=== PATIENT | female | born 1990 | race Caucasian/White ===

== ENCOUNTER 2017-06-12 23:29 | Emergency (ER) | payer BC, OTHER ==
[2017-06-13 01:23] LABS: Absolute Lymphocytes (CBC) 3.1 K/uL (0.7-4.9); Absolute Monocytes 0.6 K/uL (0.1-1.3); Absolute Neutrophil 3.6 K/uL (1.8-8.0); Basophils % 0.3 % (0-1.3); Eosinophils % 2.2 % (0-4.4); Hematocrit 40.3 % (36.0-45.0); Lymphocytes % 41.3 % (15.3-44.8); MCH 30.9 pg (27.0-35.0); MCV 92.7 fL (80-100); MPV 9.2 fL (7.6-11.3); Monocytes % 8.3 % (3.3-12.3); RBC Red Blood Cell Count 4.35 M/uL (3.86-4.86)
[2017-06-13 01:55] LABS: BUN Blood Urea Nitrogen 11 mg/dL (6-20); Bicarbonate 26 mEq/L (21-31); Glucose Level 92 mg/dL (65-120); Potassium 3.6 mEq/L (3.6-5.0); Sodium Level 135 mEq/L (135-145)
--- NOTE | 2017-06-13 03:53 | EDPHYS ---
Physician Documentation [facility] Name: Talita Hernandez Age: 26 yrs Sex: Female : 1990 Arrival Date: 06/12/2017 Time: 23:33 Bed 15 Private MD: ED Physician Hilario Bailey HPI: 06/13 00:22 This 26 yrs old Female presents to ER via Ambulatory with complaints of cp Vaginal Bleeding, Abdominal Cramping, 7 WEEKS . 00:22 The patient presents with vaginal bleeding that is spotting, right lower abdomen pain. cp Onset: The symptoms/episode began/occurred 3 day(s) ago. Severity of symptoms: in the emergency department the symptoms are unchanged. 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 - Social history:: Smoking status: Patient/guardian denies using tobacco, Patient/guardian denies using alcohol, street drugs. ROS: 06/13 00:25 Constitutional: Negative for body aches, chills, fever, poor PO intake. cp 00:25 Eyes: Negative for injury, pain, redness, and discharge. cp 00:25 ENT: Negative for drainage from ear(s), ear pain, sore throat, difficulty swallowing, difficulty handling secretions. 00:25 Cardiovascular: Negative for chest pain, edema, palpitations. 00:25 Respiratory: Negative for cough, shortness of breath, wheezing. 00:25 Abdomen/GI: Positive for abdominal pain, of the right lower quadrant, Negative for vomiting, diarrhea, constipation, black/tarry stool, rectal bleeding. 00:25 : Negative for urinary symptoms. 00:25 Skin: Negative for cellulitis, rash. 00:25 Neuro: Negative for altered mental status, dizziness, headache, syncope, near syncope, weakness. 00:25 All other systems are negative. Exam: 00:30 Constitutional: The patient appears in no acute distress, alert, awake, non-toxic, well cp developed, well nourished. 00:30 Head/Face: Normocephalic, atraumatic. cp 00:30 Eyes: Periorbital structures: appear normal, Conjunctiva: normal, no exudate, no cp injection, Sclera: no appreciated abnormality, Lids and lashes: appear normal, bilaterally. 00:30 ENT: External ear(s): are unremarkable, Nose: is normal, Mouth: Lips: moist, Oral mucosa: pink and intact, moist, Posterior pharynx: is normal, airway is patent, no erythema, no exudate. 00:30 Neck: ROM/movement: is normal, is supple, without pain, no range of motions limitations, no nuchal rigidity. 00:30 Chest/axilla: Inspection: normal, Palpation: is normal, no crepitus, no tenderness. 00:30 Cardiovascular: Rate: normal, Rhythm: regular. 00:30 Respiratory: the patient does not display signs of respiratory distress, Respirations: normal, no use of accessory muscles, no retractions, no splinting, no tachypnea, Breath sounds: are clear throughout, no decreased breath sounds, no stridor, no wheezing. 00:30 Abdomen/GI: Inspection: abdomen appears normal, Bowel sounds: active, all quadrants, Palpation: soft, in all quadrants, mild abdominal tenderness, in the right lower quadrant, rebound tenderness, is not appreciated, voluntary guarding, is not appreciated, involuntary guarding, is not appreciated. 00:30 Back: pain, is absent, ROM is normal. 00:30 Skin: cellulitis, is not appreciated, no rash present. cp 00:30 Neuro: Orientation: is normal, Mentation: is normal, Cerebellar function: is grossly normal, Motor: moves all fours, strength is normal, Sensation: no obvious gross deficits. Vital Signs: 06/12 23:50 BP 111 / 64; Pulse 66; Resp 18 S; Temp 97.5(O); Pulse Ox 100% on R/A; Weight 67.59 kg bb (R); Height 5 ft. 6 in. (167.64 cm) (R); Pain 7/10; 06/13 01:04 BP 97 / 62; Pulse 69; Resp 17 S; Pulse Ox 100% on R/A; jd3 02:05 BP 96 / 54; Pulse 82; Resp 17 S; Pulse Ox 100% on R/A; jd3 03:21 BP 99 / 49; Pulse 67; Resp 18 S; Pulse Ox 99% on R/A; jd3 06:09 BP 108 / 69; Pulse 67; Resp 17 S; Pulse Ox 99% on R/A; jd3 06/12 23:50 Body Mass Index 24.05 (67.59 kg, 167.64 cm) bb MDM: 00:02 Patient medically screened. cp 01:00 Differential diagnosis: ectopic , molar preganancy, ovarian cyst, pelvic cp inflammatory disease, ruptured ectopic , urinary tract infection. 03:50 Data reviewed: vital signs, nurses notes, lab test result(s), radiologic studies, cp ultrasound, and as a result, I will discharge patient. 03:50 Counseling: I had a detailed discussion with the patient and/or guardian regarding: the cp historical points, exam findings, and any diagnostic results supporting the discharge/admit diagnosis, lab results, the need for outpatient follow up, an OB/Gyne specialist, to return to the emergency department if symptoms worsen or persist or if there are any questions or concerns that arise at home. 06/13 00:15 Order name: Urine Dipstick--Ancillary (enter results) [facility] 06/13 00:16 Order name: Urine Dipstick-Ancillary [facility] 06/13 00:21 Order name: Quantitative Hcg; Complete Time: 02:33 cp 06/13 02:33 Interpretation: HCGQ 19903.0; Reviewed. cp 06/13 00:21 Order name: Abo/rh Typing 06/13 03:45 Interpretation: Reviewed. cp 06/13 00:21 Order name: Basic Metabolic Panel; Complete Time: 02:33 cp 06/13 02:33 Interpretation: Reviewed. cp 06/13 00:21 Order name: CBC with Diff; Complete Time: 01:29 cp 06/13 01:29 Interpretation: Reviewed. cp 06/13 00:25 Order name: Urine --Ancillary [facility] 06/13 04:08 Order name: Rh Typing [facility] 06/13 04:08 Order name: Antibody Screen [facility] 06/13 04:08 Order name: Fetalscreen [facility] 06/13 04:08 Order name: Cord Rh type [facility] 06/13 00:21 Order name: IV Saline Lock; Complete Time: 00:49 cp 06/13 00:21 Order name: Labs collected and sent; Complete Time: 00:50 cp 06/13 00:21 Order name: NPO; Complete Time: 00:29 cp 06/13 02:07 Order name: US Transvaginal Ob cp 06/13 04:08 Order name: Rhogam EDMS Administered Medications: 06:02 Drug: RhoGAM (Human) 300 mcg Route: IM; Site: right gluteus; bb 06:19 Follow up: Response: No adverse reaction jd3 Disposition: 06:34 Co-signature as Attending Physician, Hilario Bailey MD. pkl Disposition: 06/13/17 03:53 Discharged to Home. Impression: Threatened . - Condition is Stable. - Discharge Instructions: Medicines During , Threatened Miscarriage, Pelvic Rest. - Prescriptions for Vitamin 27- 0.8 mg Oral Tablet - take 1 tablet by ORAL route once daily; 60 tablet. - Medication Reconciliation Form, Thank You Letter, Antibiotic Education, Prescription Opioid Use, Work release form form. - Follow up: Yazan Post MD; When: 1 - 2 days; Reason: Recheck today's complaints. - Problem is new. - Symptoms are unchanged. Signatures: Dispatcher [employer] EDHilario Stratton MD MD pkl Shyanne Pop, RN RN Carlos Nelson PA PA cp Davies, Jonathon, RN RN jd3 Corrections: (The following items were deleted from the chart) 00:25 00:16 Urine --Ancillary ordered. EDMS EDMS 02:28 00:22 TEST, SERUM+SC.LAB.BRZ ordered. EDMS EDMS
--- NOTE | 2017-06-13 03:53 | ER ---
Nurse's Notes [facility] Name: Talita Hernandez Age: 26 yrs Sex: Female : 1990 Arrival Date: 06/12/2017 Time: 23:33 Bed 15 Private MD: Diagnosis: Threatened Presentation: 06/12 23:48 Presenting complaint: Patient states: she is having abdominal cramping, and spotting x bb 3 days she came in because cramping is getting worse, she is 7 weeks . Transition of care: patient was not received from another setting of care. Onset of symptoms was June 09, 2017. Care prior to arrival: None. 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 - Social history:: Smoking status: Patient/guardian denies using tobacco, Patient/guardian denies using alcohol, street drugs. Screenin/01 00:52 Abuse screen: Denies threats or abuse. Nutritional screening: No deficits noted. jd3 Tuberculosis screening: No symptoms or risk factors identified. Fall Risk IV access (20 points). Total Mcgill Fall Scale indicates No Risk (0-24 pts). Assessment: 00:20 General: Appears in no apparent distress. uncomfortable, Behavior is calm, cooperative, jd3 appropriate for age. Pain: Complains of pain in right lower quadrant Quality of pain is described as aching. Neuro: Level of Consciousness is awake, alert, obeys commands, Oriented to person, place, time, situation. Cardiovascular: Heart tones S1 S2 present Capillary refill < 3 seconds Patient's skin is warm and dry. Respiratory: Airway is patent Respiratory effort is even, unlabored, Respiratory pattern is regular, symmetrical, Breath sounds are clear bilaterally. GI: Abdomen is round Bowel sounds present X 4 quads. Abd is soft and non tender. : Urine is clear, Reports vaginal bleeding that is spotty. EENT: Derm: Skin is intact, Skin is dry, Skin is normal, Skin temperature is warm. Musculoskeletal: Circulation, motion, and sensation intact. Range of motion: intact in all extremities. 01:07 Reassessment: Patient appears in no apparent distress at this time. Patient and/or jd3 family updated on plan of care and expected duration. Pain level reassessed. Patient is alert, oriented x 3, equal unlabored respirations, skin warm/dry/pink. 02:05 Reassessment: Patient appears in no apparent distress at this time. Patient and/or jd3 family updated on plan of care and expected duration. Pain level reassessed. Patient is alert, oriented x 3, equal unlabored respirations, skin warm/dry/pink. 03:21 Reassessment: Patient appears in no apparent distress at this time. Patient and/or jd3 family updated on plan of care and expected duration. Pain level reassessed. Patient is alert, oriented x 3, equal unlabored respirations, skin warm/dry/pink. 06:09 Reassessment: Patient appears in no apparent distress at this time. Patient and/or jd3 family updated on plan of care and expected duration. Pain level reassessed. Patient is alert, oriented x 3, equal unlabored respirations, skin warm/dry/pink. 06:18 Reassessment: Patient appears in no apparent distress at this time. Patient and/or jd3 family updated on plan of care and expected duration. Pain level reassessed. Patient is alert, oriented x 3, equal unlabored respirations, skin warm/dry/pink. pt reported understanding of discharge instructions, even and steady gait upon discharge. Vital Signs: 06/12 23:50 BP 111 / 64; Pulse 66; Resp 18 S; Temp 97.5(O); Pulse Ox 100% on R/A; Weight 67.59 kg bb (R); Height 5 ft. 6 in. (167.64 cm) (R); Pain 7/10; 06/13 01:04 BP 97 / 62; Pulse 69; Resp 17 S; Pulse Ox 100% on R/A; jd3 02:05 BP 96 / 54; Pulse 82; Resp 17 S; Pulse Ox 100% on R/A; jd3 03:21 BP 99 / 49; Pulse 67; Resp 18 S; Pulse Ox 99% on R/A; jd3 06:09 BP 108 / 69; Pulse 67; Resp 17 S; Pulse Ox 99% on R/A; jd3 06/12 23:50 Body Mass Index 24.05 (67.59 kg, 167.64 cm) sharif ED Course: 06/12 23:33 Patient arrived in ED. al2 23:50 Triage completed. bb 23:50 Arm band placed on Patient placed in an exam room, on a stretcher, on pulse oximetry. bb Family accompanied patient. 04 00:02 Carlos Tang PA is PHCP. cp 00:02 Hilario Bailey MD is Attending Physician. cp 00:28 Sam Eaton RN is Primary Nurse. jd3 00:54 Patient has correct armband on for positive identification. Bed in low position. Call jd3 light in reach. Side rails up X 1. Adult w/ patient. 02:36 Ultrasound completed. Patient tolerated well. aa4 02:38 US Transvaginal Ob In Process Unspecified. EDMS 03:52 Yazan Post MD is Referral Physician. cp 04:00 Inserted saline lock: 20 gauge in right antecubital area, using aseptic technique. jd3 Blood collected. 06:09 No provider procedures requiring assistance completed. jd3 06:20 IV discontinued, intact, bleeding controlled, No redness/swelling at site. Pressure jd3 dressing applied. Administered Medications: 06:02 Drug: RhoGAM (Human) 300 mcg Route: IM; Site: right gluteus; bb 06:19 Follow up: Response: No adverse reaction jd3 Outcome: 03:53 Discharge ordered by . cp 06:19 Discharged to home ambulatory. jd3 06:19 Condition: stable 06:19 Discharge instructions given to patient, Instructed on discharge instructions, follow up and referral plans. medication usage, Demonstrated understanding of instructions, follow-up care, medications, Prescriptions given X 1. 06:20 Patient left the ED. jd3 Signatures: Dispatcher [employer] EDAL Shyanne Pop RN RN bb Frazier, Amanda aa4 Carlos Tang PA PA cp Davies, Jonathon, RN RN jd3 Love, Angelica al2 Corrections: (The following items were deleted from the chart) 06/12 23:52 23:48 Presenting complaint: Patient states: she is having abdominal cramping, and bb spotting x 3 days she came in because cramping is getting worse bb
[2017-06-13 04:23] LABS: Urine Blood NEGATIVE (NEG); Urine Glucose NEGATIVE (NEG); Urine Protein NEGATIVE (NEG); Urine Specific Gravity 1.025 (1.005-1.030)
[2017-06-13 04:23] LABS: Urine Specific Gravity 1.025 (1.005-1.030)
[2017-06-13 06:27] VITALS: TEMP 97.5
[2017-06-13 06:30] VITALS: O2SAT 99
[2017-06-13 06:31] VITALS: BP 108/69
--- NOTE | 2017-06-13 08:09 | RAD REPORT ---
EXAM DESCRIPTION: US - Transvaginal OB - 06/13/2017 2:39 am CLINICAL HISTORY: with abdominal pain and vaginal bleeding COMPARISON: None. FINDINGS: The uterus is retroverted and measures 8 x 6 x 6 centimeters. A gestational sac is presen t within the endometrium. A yolk sac is not seen. A pole is not demonstrated. The left ovary is normal in size and echotexture. A 3.8 centimeter right ovarian cyst is present. No significant free fluid is seen. IMPRESSION: These findings may indicate an incomplete . [facility] the y[facility]/ pole is not seen is another consideration. A less likely possibility is that this represents a pseudo gestational sac associated with an ectopic . This all should be cor related clinically and with serial beta HCG levels and a followup endovaginal sonogram in 1 week. 3.8 centimeter right ovarian cyst likely is benign. This also can be monitored on the follow-up ultra sound
== END 2017-06-13 06:20 | disposition home or self-care (01) ==
LOC: ER 23:29
DX: O20.0 Threatened abortion (principal); Z3A.01 Less than 8 weeks gestation of pregnancy
CPT/HCPCS: 36415; 76817; 80048; 81003; 81025; 84702; 85025; 86850; 86900; 86901; 96372; 99284; J2790

== ENCOUNTER 2017-07-22 12:24 | Day surgery (SDC) | payer BC, OTHER ==
[2017-07-22] MEDS ORDERED: Ringers Lactate 1,000 ML IV ONE (14:36)
[2017-07-22 14:50] LABS: Absolute Lymphocytes (CBC) 3.7 K/uL (0.7-4.9); Absolute Monocytes 0.6 K/uL (0.1-1.3); Absolute Neutrophil 4.6 K/uL (1.8-8.0); Basophils % 0.5 % (0-1.3); Eosinophils % 2.2 % (0-4.4); Hematocrit 31.8 % (36.0-45.0); Lymphocytes % 40.8 % (15.3-44.8); MCH 30.6 pg (27.0-35.0); MCV 91.1 fL (80-100); MPV 8.9 fL (7.6-11.3); Monocytes % 6.7 % (3.3-12.3)
[2017-07-22] MEDS ORDERED: Ringers Lactate 1,000 ML IV SCH (15:00)
[2017-07-22] MEDS ORDERED: DOXYCYCLINE 100 MG in NA CHLORIDE 0.9% 100 ML IVPB SCH (15:00)
[2017-07-22] MEDS ORDERED: PROPOFOL 200 MG/20 ML VIAL IV ONE (15:41)
[2017-07-22] MEDS ORDERED: FENTANYL CITR 100 MCG/2 ML ONE (15:41)
[2017-07-22] MEDS ORDERED: OXYTOCIN 10 UNIT/ML ML IV ONE (16:30)
[2017-07-22] MEDS ORDERED: METHYLERGONOVINE 0.2MG/ML AMP IM ONE (16:31)
[2017-07-22] MEDS ORDERED: SILVER NITRATE 1 APPL TOP ONE (16:31)
[2017-07-22] MEDS ORDERED: MIDAZOLAM HCL 2 MG/2 ML INJ ONE (17:02)
[2017-07-22] MEDS ORDERED: DEXAMETHASONE 10 MG/ML VIAL ONE (17:08)
[2017-07-22] MEDS ORDERED: ONDANSETRON HCL 40 MG/20 ML VIAL ONE (17:08)
[2017-07-22] MEDS ORDERED: KETOROLAC 30 MG/ML INJ ONE (17:17)
[2017-07-22] MEDS ORDERED: ONDANSETRON 4 MG/2 ML VIAL ONE (17:29)
[2017-07-22 17:30] VITALS: TEMP 98
--- NOTE | 2017-07-22 18:01 | P.BOP ---
Preoperative diagnosis: Incomplete AB Postoperative diagnosis: same Primary procedure: Curretage of endometrium Estimated blood loss: Less than 10ml Specimen: POC Anesthesia: General Complications: None Transferred to: Recovery Room Condition: Good
[2017-07-22 18:27] VITALS: BP 104/55; O2SAT 99
--- NOTE | 2017-07-23 05:11 | OP ---
Surgeon: Yazan Post MD Preoperative Diagnosis: Incomplete . Procedure: Curettage of the uterine endometrium. Postoperative Diagnosis: Incomplete . Description Of Procedure: After satisfactory level of general anesthesia was obtained, the patient w as prepped and draped in the usual fashion in high leg holders. A weighted speculum was placed in po sterior vagina. Cervix was visualized and grasped with single-tooth tenaculum. The cervix was alrea dy dilated sufficiently to accept an 8 curved suction curette productive of a small amount of tissue. Sharp curettage followed productive no further tissue. The patient was awakened and taken to [facility] room in satisfactory condition. Anesthesia: Dotty Natarajan CRNA and Dr. Mike Saeed MD. Estimated Total Blood Loss: Less than 10 mL. Antibiotics: The patient received 200 mg of doxycycline IV for prophylaxis preoperatively. JOHN/ELBA Voice ID: [id number] Report ID: [id number]
--- NOTE | 2017-07-23 05:11 | DS ---
Date of Discharge: 07/22/2017 Final Hospital Discharge Diagnosis: A 10-week with incomplete . Complications: None. Procedures: Curettage of uterine endometrium. Hospital Course: The patient is a 26-year-old female, 2, para 1-0-0-1, approximate ly 10 weeks' gestation with failed on ultrasound, attempted waiting for. [facility] and cramping. Because of this, she was brought in the hospital. Cu rettage of the endometrium was performed for an incomplete . Lab work included an admission hemoglobin and hematocrit of 10.7 and 31.8. She is Rh negative blood type, had received RhoGAM previ ously, but this will be checked prior to dismissal to see evidence of this is still present. She is dismissed with misoprostol 50 mg p.o. q.6 hours for approximately 6 doses and Tylenol No. 3 and No. 5 tablets for pain relief. She will be seen back in my office in 2 weeks and was dismissed with the [facility] post D and C activity restrictions. JOHN/ELBA Voice ID: [id number] Report ID: [id number]
--- NOTE | 2017-07-23 11:12 | PREOPHP ---
Date of Admission: 07/22/2017 History Of Present Illness: Ms. Ayers is a 26-year-old, female, 2, para 1-0-0-1 , now approximately 10 weeks gestation. She has been noted to have a failed with multiple ultrasounds not showing continued growth. She was seen most recently about 2 weeks ago and precautio ns were given to await spontaneous miscarriage. She, however, has continued bleeding, cramping. On exam today, a large blood clot and products of conception were noted at the cervical os. Some of thi s was removed, but because of continued bleeding and cramping, I suspect she has an incomplete aborti on. Because of this, she is scheduled for dilatation and curettage this evening. Past Medical History: Includes no prior hospitalizations, accidents, illnesses, injuries. Only 1 sp ontaneous delivery. She is on no medications other than vitamins. She has no known allergi es. She does not smoke. Family History: Noncontributory. Elevated blood pressure. Review of Systems: She reports no recent cough, cold, fever, or chills. No recent nausea, vomiting. She denies any halima ast lumps. She denies any urine symptoms or bowel issues. Physical Examination: General: female, in mild discomfort. Neck: Supple without adenopathy or thyromegaly. Lungs: Clear. Cardiac: Regular rate and rhythm without murmurs. Breasts: Not examined. Abdomen: Nontender without organosplenomegaly pelvic as stated before 2-3 cm blood clot products of conception at the cervical os on initial exam, much of this was teased out, but I felt like the entir e products of conception were not removed because of this. Extremities: No cyanosis, clubbing, edema. Impression: Incomplete . Plan: The patient will be admitted for curettage uterine endometrium. Will be prophylaxed with doxy cycline. She did receive 1 shot of RhoGAM. We will probably give a second shot of RhoGAM because of the amount of bleeding that Ms. Ayers has had, unless excessive antibodies are detected in her bl ood stream. JOHN/ELBA Voice ID: [id number]
== END 2017-07-22 19:09 | disposition home or self-care (01) ==
LOC: OR 12:24
PROVIDERS: ATTEND Specialist
PROC: 10D17ZZ Extraction of Products of Conception, Retained, Via Natural or Artificial Opening (ICD-10-PCS; principal; 2017-07-22 17:00)
DX: O03.4 Incomplete spontaneous abortion without complication (principal)
CPT/HCPCS: 36415; 85025; 86850; 86870; 88305; J1100; J2210; J2250; J2405; J2590; J3010

== ENCOUNTER 2018-01-22 12:33 | Emergency (ER) | payer BC, OTHER ==
[2018-01-22] MEDS ORDERED: KETOROLAC 30 MG/ML INJ ONE (13:53)
[2018-01-22] MEDS ORDERED: METOCLOPRAMIDE 10 MG/2mL INJ ONE (13:53)
[2018-01-22] MEDS ORDERED: NA CHLORIDE 0.9% 1,000 ML ONE (13:53)
[2018-01-22 13:57] LABS: Urine Blood NEGATIVE (NEG); Urine Glucose NEGATIVE (NEG); Urine Protein NEGATIVE (NEG)
[2018-01-22 14:13] LABS: Urine Bacteria <20 /HPF (<20); Urine Culture Reflex Order NOT NEEDED; Urine RBC <5 /HPF (NONE SEEN)
[2018-01-22 14:24] LABS: ALT/SGPT 29 U/L (12-78); AST/SGOT 27 U/L (15-37); Albumin 4.1 g/dL (3.4-5.0); Alkaline Phosphatase 78 U/L (45-117); BUN Blood Urea Nitrogen 14 mg/dL (7-18); Bicarbonate 27 mmol/L (21-32); Bilirubin Direct 0.1 mg/dL (0-0.2); Bilirubin Total 0.4 mg/dL (0.2-1.0); Glucose Level 87 mg/dL (74-106); Lipase 144 U/L (73-393); Potassium 3.6 mmol/L (3.5-5.1); Protein, Total 7.6 g/dL (6.4-8.2); Sodium Level 141 mmol/L (136-145)
--- NOTE | 2018-01-22 14:28 | RAD REPORT ---
EXAM DESCRIPTION: US - Abdomen Exam Limited - 01/22/2018 2:20 pm CLINICAL HISTORY: Abdominal pain. COMPARISON: 2017 FINDINGS: The gallbladder wall is not thickened. A gallstone is not seen. The biliary tree is normal caliber. IMPRESSION: Unremarkable gallbladder ultrasound.
[2018-01-22 14:30] LABS: Absolute Lymphocytes (CBC) 2.2 K/uL (0.7-4.9); Absolute Monocytes 0.4 K/uL (0.1-1.3); Absolute Neutrophil 4.5 K/uL (1.8-8.0); Basophils % 0.5 % (0-1.3); Hematocrit 38.5 % (36.0-45.0); Lymphocytes % 30.2 % (15.3-44.8); MCV 92.9 fL (80-100); MPV 8.9 fL (7.6-11.3); Monocytes % 5.6 % (3.3-12.3); RBC Red Blood Cell Count 4.15 M/uL (3.86-4.86)
--- NOTE | 2018-01-22 14:40 | ER ---
Nurse's Notes [facility] Name: Talita Hernandez Age: 27 yrs Sex: Female : 1990 Arrival Date: 01/22/2018 Time: 12:36 Bed 20 Private MD: None, None Diagnosis: Nausea and vomiting;Upper abdominal pain, unspecified Presentation: 01/22 12:44 Presenting complaint: Patient states: headache to right baptism that began this morning. aa5 Pt also reports nausea and vomiting. Transition of care: patient was not received from another setting of care. Onset of symptoms was January 2018. Risk Assessment: Do you want to hurt yourself or someone else? Patient reports no desire to harm self or others. Initial Sepsis Screen: Does the patient meet any 2 criteria? No. Patient's initial sepsis screen is negative. Does the patient have a suspected source of infection? No. Patient's initial sepsis screen is negative. Care prior to arrival: None. 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 - Social history:: Smoking status: Patient/guardian denies using tobacco. - Ebola Screening: : No symptoms or risks identified at this time. Screenin:14 Abuse screen: Denies threats or abuse. Nutritional screening: No deficits noted. em Tuberculosis screening: No symptoms or risk factors identified. Fall Risk None identified. Assessment: 13:15 General: Appears in no apparent distress. uncomfortable, Behavior is calm, cooperative. em Pain: Complains of pain in right baptism and right upper quadrant. Neuro: Level of Consciousness is awake, alert, obeys commands, Oriented to person, place, time, situation, Reports headache Denies weakness blurred vision. Cardiovascular: Capillary refill < 3 seconds Patient's skin is warm and dry. Respiratory: Airway is patent Respiratory effort is even, unlabored, Respiratory pattern is regular, symmetrical. GI: Abdomen is flat, Bowel sounds present X 4 quads. Abd is soft X 4 quads Abdomen is tender to palpation in right upper quadrant. : Urine is clear. EENT: No signs and/or symptoms were reported regarding the EENT system. Derm: Skin is intact, Skin is pink, warm \T\ dry. Musculoskeletal: Capillary refill < 3 seconds, Range of motion: intact in all extremities. 13:30 Reassessment: Patient appears in no apparent distress at this time. Patient is alert, iw oriented x 3, equal unlabored respirations, skin warm/dry/pink. I agree with above assessment by Levi Reese LVN. 14:26 Reassessment: Patient appears in no apparent distress at this time. Patient and/or em family updated on plan of care and expected duration. Pain level reassessed. Patient is alert, oriented x 3, equal unlabored respirations, skin warm/dry/pink. rates pain 3/10 Patient states feeling better. Patient states symptoms have improved. 15:18 Reassessment: Patient appears in no apparent distress at this time. Patient and/or em family updated on plan of care and expected duration. Pain level reassessed. Patient is alert, oriented x 3, equal unlabored respirations, skin warm/dry/pink. Vital Signs: 12:45 BP 113 / 71; Pulse 80; Resp 16 S; Temp 97.8(TE); Pulse Ox 98% on R/A; Weight 68.04 kg aa5 (R); Height 5 ft. 6 in. (167.64 cm) (R); Pain 10/10; 13:15 BP 112 / 81; Pulse 84; Resp 17; Pulse Ox 99% on R/A; Pain 8/10; em 14:28 BP 118 / 75; Pulse 78; Resp 15; Pulse Ox 99% on R/A; Pain 3/10; em 12:45 Body Mass Index 24.21 (68.04 kg, 167.64 cm) aa5 ED Course: 12:36 Patient arrived in ED. mr 12:36 None, None is Private Physician. mr 12:44 Triage completed. aa5 12:44 Arm band placed on. aa5 13:09 César Woods MD is Attending Physician. gs 13:14 Levi Reese LVN is Primary Nurse. em 13:14 Patient has correct armband on for positive identification. Placed in gown. Bed in low em position. Call light in reach. Side rails up X2. 13:14 No provider procedures requiring assistance completed. em 13:40 Initial lab(s) drawn, by me, sent to lab. Inserted saline lock: 20 gauge in right Blood em collected. 14:21 Ultrasound completed. Patient tolerated well. sg3 14:22 US Abdomen Limited In Process Unspecified. EDMS 15:17 IV discontinued, intact, bleeding controlled, No redness/swelling at site. Pressure em dressing applied. Administered Medications: 13:54 Drug: NS 0.9% 1000 ml Route: IV; Rate: 1 bolus; Site: right antecubital; iw 14:57 Follow up: IV Status: Completed infusion; IV Intake: 1000ml em 13:54 Drug: Reglan 5 mg Route: IVP; Site: right antecubital; iw 14:57 Follow up: Response: No adverse reaction; Pain is decreased em 13:54 Drug: TORadol 30 mg Route: IVP; Site: right antecubital; iw 14:57 Follow up: Response: No adverse reaction; Pain is decreased em Intake: 14:57 IV: 1000ml; Total: 1000ml. em Outcome: 14:39 Discharge ordered by . gs 15:17 Discharged to home ambulatory. em 15:17 Condition: good 15:17 Discharge instructions given to patient, Instructed on discharge instructions, follow up and referral plans. medication usage, Demonstrated understanding of instructions, follow-up care, medications, Prescriptions given X 2. 15:20 Patient left the ED. em Signatures: Dispatcher [employer] EDOR Aditi Lujan, Levi, LPN RN LPN RN em Zehra Armendariz RN RN iw Calderon, Audri, RN RN aa5 César Woods MD MD gs Godinez, Sarah sg3
--- NOTE | 2018-01-22 14:40 | EDPHYS ---
Physician Documentation [facility] Name: Talita Hernandez Age: 27 yrs Sex: Female : 1990 Arrival Date: 01/22/2018 Time: 12:36 Bed 20 Private MD: None, None ED Physician César Woods HPI: 01/22 14:34 This 27 yrs old Female presents to ER via Ambulatory with complaints of gs Vomiting, Headache. 14:34 The patient presents to the emergency department with nausea, vomiting, abdominal pain, gs of the right upper quadrant. Onset: The symptoms/episode began/occurred this morning. Possible causes: unknown. The symptoms are aggravated by nothing. The symptoms are alleviated by nothing. Associated signs and symptoms: Pertinent positives: headache says gradual onset, r sided , throbbing similar to previous. Severity of symptoms: At their worst the symptoms were moderate in the emergency department the symptoms are unchanged. The patient has experienced similar episodes in the past, a few times. 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 - Social history:: Smoking status: Patient/guardian denies using tobacco. - Ebola Screening: : No symptoms or risks identified at this time. ROS: 14:34 All other systems are negative. gs Exam: 14:34 Head/Face: Normocephalic, atraumatic. Eyes: Pupils equal round and reactive to light, gs extra-ocular motions intact. Lids and lashes normal. Conjunctiva and sclera are non-icteric and not injected. Cornea within normal limits. Periorbital areas with no swelling, redness, or edema. ENT: Nares patent. No nasal discharge, no septal abnormalities noted. Tympanic membranes are normal and external auditory canals are clear. Oropharynx with no redness, swelling, or masses, exudates, or evidence of obstruction, uvula midline. Mucous membranes moist. Neck: Trachea midline, no thyromegaly or masses palpated, and no cervical lymphadenopathy. Supple, full range of motion without nuchal rigidity, or vertebral point tenderness. No Meningismus. Chest/axilla: Normal chest wall appearance and motion. Nontender with no deformity. No lesions are appreciated. Cardiovascular: Regular rate and rhythm with a normal S1 and S2. No gallops, murmurs, or rubs. Normal PMI, no JVD. No pulse deficits. Respiratory: Lungs have equal breath sounds bilaterally, clear to auscultation and percussion. No rales, rhonchi or wheezes noted. No increased work of breathing, no retractions or nasal flaring. Back: No spinal tenderness. No costovertebral tenderness. Full range of motion. Skin: Warm, dry with normal turgor. Normal color with no rashes, no lesions, and no evidence of cellulitis. MS/ Extremity: Pulses equal, no cyanosis. Neurovascular intact. Full, normal range of motion. Neuro: Awake and alert, GCS 15, oriented to person, place, time, and situation. Cranial nerves II-XII grossly intact. Motor strength 5/5 in all extremities. Sensory grossly intact. Cerebellar exam normal. Normal gait. 14:34 Constitutional: The patient appears alert, awake. 14:34 Abdomen/GI: Palpation: moderate abdominal tenderness, in the right upper quadrant. Vital Signs: 12:45 BP 113 / 71; Pulse 80; Resp 16 S; Temp 97.8(TE); Pulse Ox 98% on R/A; Weight 68.04 kg aa5 (R); Height 5 ft. 6 in. (167.64 cm) (R); Pain 10/10; 13:15 BP 112 / 81; Pulse 84; Resp 17; Pulse Ox 99% on R/A; Pain 8/10; em 14:28 BP 118 / 75; Pulse 78; Resp 15; Pulse Ox 99% on R/A; Pain 3/10; em 12:45 Body Mass Index 24.21 (68.04 kg, 167.64 cm) aa5 MDM: 13:22 Patient medically screened. gs 14:34 Differential diagnosis: Nonspecific abd pain, cholecystitis, pancreatitis, migraine. gs Data reviewed: vital signs, nurses notes. Counseling: I had a detailed discussion with the patient and/or guardian regarding: the historical points, exam findings, and any diagnostic results supporting the discharge/admit diagnosis, lab results, radiology results, the need for outpatient follow up. Response to treatment: the patient's symptoms have markedly improved after treatment, and as a result, I will discharge patient. 15:14 Response to treatment: the patient's symptoms have resolved after treatment, the patient's pain is gone, the patient's condition has returned to base line. 01/22 13:24 Order name: Basic Metabolic Panel; Complete Time: 14:33 01/22 13:24 Order name: CBC with Diff; Complete Time: 14:33 01/22 13:24 Order name: Hepatic Function; Complete Time: 14:33 01/22 13:24 Order name: Lipase; Complete Time: 14:33 01/22 13:24 Order name: Urine Microscopic Only; Complete Time: 14:33 01/22 13:52 Order name: Urine Dipstick--Ancillary (enter results); Complete Time: 14:33 01/22 13:24 Order name: IV Saline Lock; Complete Time: 13:49 01/22 13:24 Order name: Labs collected and sent; Complete Time: 13:49 01/22 13:24 Order name: Urine Dipstick-Ancillary (obtain specimen); Complete Time: 13:49 01/22 13:24 Order name: US Abdomen Limited; Complete Time: 14:33 01/22 13:52 Order name: Urine --Ancillary (enter results); Complete Time: 14:33 01/22 13:24 Order name: Urine Test (obtain specimen); Complete Time: 13:48 Administered Medications: 13:54 Drug: NS 0.9% 1000 ml Route: IV; Rate: 1 bolus; Site: right antecubital; iw 14:57 Follow up: IV Status: Completed infusion; IV Intake: 1000ml em 13:54 Drug: Reglan 5 mg Route: IVP; Site: right antecubital; iw 14:57 Follow up: Response: No adverse reaction; Pain is decreased em 13:54 Drug: TORadol 30 mg Route: IVP; Site: right antecubital; iw 14:57 Follow up: Response: No adverse reaction; Pain is decreased em Disposition: 01/22/18 14:39 Discharged to Home. Impression: Nausea and vomiting, Upper abdominal pain, unspecified. - Condition is Stable. - Discharge Instructions: Abdominal Pain, Adult, [id number]. - Prescriptions for Fiorinal 50- 325-40 mg Oral Capsule - take 1 capsule by ORAL route every 6 hours As needed - not to exceed 6 capsules per day; 10 capsule. Zofran 4 mg Oral Tablet - take 1 tablet by ORAL route every 12 hours As needed; 20 tablet. - Medication Reconciliation Form, Thank You Letter, Antibiotic Education, Prescription Opioid Use form. - Follow up: Private Physician; When: 2 - 3 days; Reason: Re-evaluation by your physician. Signatures: Dispatcher [employer] EDIA Levi Reese, PET STORE MERCHANDISER PET STORE MERCHANDISER em Zehra Armendariz RN RN Destiny Medina RN RN aa5 César Woods MD MD Corrections: (The following items were deleted from the chart) 15:20 14:39 01/22/2018 14:39 Discharged to Home. Impression: Nausea and vomiting; Upper em abdominal pain, unspecified. Condition is Stable. Forms are Medication Reconciliation Form, Thank You Letter, Antibiotic Education, Prescription Opioid Use. Follow up: Private Physician; When: 2 - 3 days; Reason: Re-evaluation by your physician. gs
[2018-01-22 15:27] VITALS: TEMP 97.8
[2018-01-22 15:28] VITALS: O2SAT 99
[2018-01-22 15:30] VITALS: BP 118/75
== END 2018-01-22 15:20 | disposition home or self-care (01) ==
LOC: ER 12:33
DX: R10.11 Right upper quadrant pain (principal); R11.2 Nausea with vomiting, unspecified
CPT/HCPCS: 36415; 76705; 80048; 80076; 81003; 81015; 81025; 83690; 85025; 96361; 96374; 96375; 99284; J2765; J7030

== ENCOUNTER 2019-01-07 01:04 | Emergency (ER) | payer BC ==
[2019-01-07] MEDS ORDERED: MAGNE/ALUM HYDROXD 30 ML UCUP ONE (01:26)
[2019-01-07] MEDS ORDERED: LIDOCAINE VISCOUS 2% SOLN 15 ML UDC ONE (01:26)
--- NOTE | 2019-01-07 01:26 | EDPHYS ---
Physician Documentation [facility] Name: Talita Hernandez Age: 28 yrs Sex: Female : 1990 Arrival Date: 01/07/2019 Time: 01:08 Bed 6 Private MD: ED Physician Carlos Jovel HPI: 01/07 01:19 This 28 yrs old Female presents to ER via Unassigned with complaints of HAIR noemi STUCK IN THROAT. 01:19 The patient presents with pain. The problem is located in the left aspect of posterior noemi pharynx. Onset: The symptoms/episode began/occurred just prior to arrival. Duration: The symptoms are continuous, and are unchanged since they started. Modifying factors: The symptoms are alleviated by nothing, the symptoms are aggravated by chewing, swallowing. Associated signs and symptoms: The patient has no apparent associated signs or symptoms. Severity of symptoms: At their worst the symptoms were very mild, in the emergency department the symptoms are unchanged. The patient has not experienced similar symptoms in the past. Historical: - Allergies: 01:20 No Known Allergies; aa1 - Home Meds: 01:20 None [Active]; aa1 - PMHx: 01:20 Migraines; aa1 - PSHx: 01:20 None; aa1 - Immunization history:: Flu vaccine is not up to date. - Social history:: Smoking status: Patient/guardian denies using tobacco. - Family history:: not pertinent. - Ebola Screening: : No symptoms or risks identified at this time. ROS: 01:19 Constitutional: Negative for fever, chills, and weight loss, Eyes: Negative for injury, noemi pain, redness, and discharge, Neck: Negative for injury, pain, and swelling, Cardiovascular: Negative for chest pain, palpitations, and edema, Respiratory: Negative for shortness of breath, cough, wheezing, and pleuritic chest pain, Abdomen/GI: Negative for abdominal pain, nausea, vomiting, diarrhea, and constipation, Back: Negative for injury and pain, : Negative for injury, bleeding, discharge, and swelling, MS/Extremity: Negative for injury and deformity, Skin: Negative for injury, rash, and discoloration, Neuro: Negative for headache, weakness, numbness, tingling, and seizure, Psych: Negative for depression, anxiety, suicide ideation, homicidal ideation, and hallucinations, Allergy/Immunology: Negative for hives, rash, and allergies, Endocrine: Negative for neck swelling, polydipsia, polyuria, polyphagia, and marked weight changes, Hematologic/Lymphatic: Negative for swollen nodes, abnormal bleeding, and unusual bruising. 01:19 ENT: Positive for difficulty swallowing, foreign body sensation, dog hair. Exam: 01:19 Constitutional: This is a well developed, well nourished patient who is awake, alert, noemi and in no acute distress. Head/Face: Normocephalic, atraumatic. Eyes: Pupils equal round and reactive to light, extra-ocular motions intact. Lids and lashes normal. Conjunctiva and sclera are non-icteric and not injected. Cornea within normal limits. Periorbital areas with no swelling, redness, or edema. Neck: Trachea midline, no thyromegaly or masses palpated, and no cervical lymphadenopathy. Supple, full range of motion without nuchal rigidity, or vertebral point tenderness. No Meningismus. Chest/axilla: Normal chest wall appearance and motion. Nontender with no deformity. No lesions are appreciated. Cardiovascular: Regular rate and rhythm with a normal S1 and S2. No gallops, murmurs, or rubs. Normal PMI, no JVD. No pulse deficits. Respiratory: Lungs have equal breath sounds bilaterally, clear to auscultation and percussion. No rales, rhonchi or wheezes noted. No increased work of breathing, no retractions or nasal flaring. Abdomen/GI: Soft, non-tender, with normal bowel sounds. No distension or tympany. No guarding or rebound. No evidence of tenderness throughout. Back: No spinal tenderness. No costovertebral tenderness. Full range of motion. Skin: Warm, dry with normal turgor. Normal color with no rashes, no lesions, and no evidence of cellulitis. MS/ Extremity: Pulses equal, no cyanosis. Neurovascular intact. Full, normal range of motion. Neuro: Awake and alert, GCS 15, oriented to person, place, time, and situation. Cranial nerves II-XII grossly intact. Motor strength 5/5 in all extremities. Sensory grossly intact. Cerebellar exam normal. Normal gait. Psych: Awake, alert, with orientation to person, place and time. Behavior, mood, and affect are within normal limits. :19 ENT: TM's: no acute changes, Nose: is normal, no acute changes, Mouth: Lips: normal, Oral mucosa: normal, Gums: normal with healthy appearance, Tongue: is normal, abscess, is not appreciated, drooling, is not appreciated, Posterior pharynx: no acute changes, Airway: normal, no evidence of obstruction, Tonsils: are normal in appearance, Uvula: normal, midline, swelling, is not appreciated, erythema, is not appreciated, exudate, is not appreciated, peritonsillar mass, is not appreciated. Vital Signs: 01:20 BP 127 / 81; Pulse 90; Resp 16; Temp 97.7; Pulse Ox 96% on R/A; Weight 65.77 kg; Height aa1 5 ft. 6 in. (167.64 cm); Pain 0/10; 01:20 Body Mass Index 23.40 (65.77 kg, 167.64 cm) aa1 MDM: 01:11 Patient medically screened. [facility] 01:23 Data reviewed: vital signs, nurses notes. [facility] Administered Medications: 01:32 Drug: GI Cocktail without - (Maalox Suspension 30 ml, Lidocaine Liquid 2 % 15 jb4 ml) Route: PO; 01:33 Follow up: Response: Medication administered at discharge. jb4 Disposition: 01/07/19 01:25 Discharged to Home. Impression: Dysphagia - foreign body sensation, dog hair. - Condition is Stable. - Discharge Instructions: Swallowed Foreign Body, Adult, Swallowed Foreign Body, Adult, Swok-uy-Ywsz, Foreign Body. - Medication Reconciliation Form, Thank You Letter, Antibiotic Education, Prescription Opioid Use form. - Follow up: Private Physician; When: 2 - 3 days; Reason: Recheck today's complaints, Continuance of care, Re-evaluation by your physician. Follow up: Abena Vasquez MD; When: 2 - 3 days; Reason: Recheck today's complaints, Re-evaluation by your physician. - Problem is new. - Symptoms have improved. Signatures: Constance Burk RN RN aa1 Carlos Jovel MD MD cha Bryson, James, RN RN jb4 Corrections: (The following items were deleted from the chart) 01:40 01:25 01/07/2019 01:25 Discharged to Home. Impression: Dysphagia - foreign body jb4 sensation, dog hair. Condition is Stable. Forms are Medication Reconciliation Form, Thank You Letter, Antibiotic Education, Prescription Opioid Use. Follow up: Private Physician; When: 2 - 3 days; Reason: Recheck today's complaints, Continuance of care, Re-evaluation by your physician. Follow up: Abena Vasquez; When: 2 - 3 days; Reason: Recheck today's complaints, Re-evaluation by your physician. Problem is new. Symptoms have improved. noemi
--- NOTE | 2019-01-07 01:26 | ER ---
Nurse's Notes [facility] Name: Talita Hernandez Age: 28 yrs Sex: Female : 1990 Arrival Date: 01/07/2019 Time: 01:08 Bed 6 Private MD: Diagnosis: Dysphagia-foreign body sensation, dog hair Presentation: 01/07 01:19 Presenting complaint: Patient states: she felt a dog hair get stuck in her throat about aa1 2200 and has not been able to clear it. Denies difficulty swallowing. Transition of care: patient was not received from another setting of care. Onset of symptoms was January 06, 2019 at 22:00. Risk Assessment: Do you want to hurt yourself or someone else? Patient reports no desire to harm self or others. Initial Sepsis Screen: Does the patient meet any 2 criteria? No. Patient's initial sepsis screen is negative. Does the patient have a suspected source of infection? No. Patient's initial sepsis screen is negative. Care prior to arrival: None. 01:19 Method Of Arrival: Ambulatory aa1 01:19 Method Of Arrival: Ambulatory aa1 01:19 Acuity: MILAGROS 4 aa1 Triage Assessment: 01:20 General: Appears in no apparent distress. uncomfortable, Behavior is calm, cooperative, aa1 appropriate for age. Pain: Denies pain. Historical: - Allergies: 01:20 No Known Allergies; aa1 - Home Meds: 01:20 None [Active]; aa1 - PMHx: 01:20 Migraines; aa1 - PSHx: 01:20 None; aa1 - Immunization history:: Flu vaccine is not up to date. - Social history:: Smoking status: Patient/guardian denies using tobacco. - Family history:: not pertinent. - Ebola Screening: : No symptoms or risks identified at this time. Screenin:38 Abuse screen: Denies threats or abuse. Nutritional screening: No deficits noted. jb4 Tuberculosis screening: No symptoms or risk factors identified. Fall Risk None identified. Assessment: 01:38 General: Appears in no apparent distress. uncomfortable, Behavior is calm, cooperative, jb4 appropriate for age. Pain: Denies pain. Neuro: Level of Consciousness is awake, alert, obeys commands, Oriented to person, place, time, situation. Cardiovascular: Patient's skin is warm and dry. Respiratory: Airway is patent Respiratory effort is even, unlabored, Respiratory pattern is regular, symmetrical. GI: No deficits noted. No signs and/or symptoms were reported involving the gastrointestinal system. : No deficits noted. No signs and/or symptoms were reported regarding the genitourinary system. EENT: No deficits noted. No signs and/or symptoms were reported regarding the EENT system. Derm: Skin Skin is pink, warm \T\ dry. Musculoskeletal: Circulation, motion, and sensation intact. Range of motion: intact in all extremities. Vital Signs: 01:20 BP 127 / 81; Pulse 90; Resp 16; Temp 97.7; Pulse Ox 96% on R/A; Weight 65.77 kg; Height aa1 5 ft. 6 in. (167.64 cm); Pain 0/10; 01:20 Body Mass Index 23.40 (65.77 kg, 167.64 cm) aa1 ED Course: 01:08 Patient arrived in ED. ag3 01:11 Carlos Jovel MD is Attending Physician. noemi 01:20 Triage completed. aa1 01:20 Hieu Maradiaga RN is Primary Nurse. jb4 01:20 Arm band placed on right wrist. Patient placed in an exam room, on a stretcher. aa1 01:23 Abena Vasquez MD is Referral Physician. [facility] 01:38 Patient has correct armband on for positive identification. Bed in low position. Call jb4 light in reach. Side rails up X 1. Pulse ox on. NIBP on. 01:38 No provider procedures requiring assistance completed. Patient did not have IV access jb4 during this emergency room visit. Administered Medications: 01:32 Drug: GI Cocktail without - (Maalox Suspension 30 ml, Lidocaine Liquid 2 % 15 jb4 ml) Route: PO; 01:33 Follow up: Response: Medication administered at discharge. jb4 Outcome: 01:25 Discharge ordered by . [facility] 01:38 Discharged to home ambulatory, with family. jb4 01:38 Condition: stable 01:38 Discharge instructions given to patient, family, Instructed on discharge instructions, follow up and referral plans. Demonstrated understanding of instructions, follow-up care. 01:40 Patient left the ED. jb4 Signatures: Constance Burk RN RN aa1 Carlos Jovel MD MD cha Bryson, James, KINSEY RN jb4 Cyn Vazquez ag3
[2019-01-07 02:06] VITALS: BP 127/81; TEMP 97.7; O2SAT 96
== END 2019-01-07 01:40 | disposition home or self-care (01) ==
LOC: ER 01:04
DX: R13.10 Dysphagia, unspecified (principal); R09.89 Other specified symptoms and signs involving the circulatory and respiratory systems; T17.298A Other foreign object in pharynx causing other injury, initial encounter
CPT/HCPCS: 99283

== ENCOUNTER 2019-02-01 20:00 | Emergency (ER) | payer SELFPAY ==
[2019-02-01 21:42] LABS: Absolute Lymphocytes (CBC) 2.8 K/uL (0.7-4.9); Basophils % 0.6 % (0-1.3); Hematocrit 39.7 % (36.0-45.0); Lymphocytes % 35.4 % (15.3-44.8); MPV 9.6 fL (7.6-11.3); RBC Red Blood Cell Count 4.43 M/uL (3.86-4.86)
[2019-02-01 21:45] LABS: Protime INR 1.11
[2019-02-01 22:03] LABS: ALT/SGPT 20 U/L (12-78); AST/SGOT 15 U/L (15-37); Albumin 4.2 g/dL (3.4-5.0); Alkaline Phosphatase 72 U/L (45-117); BUN Blood Urea Nitrogen 9 mg/dL (7-18); Bicarbonate 27 mmol/L (21-32); Bilirubin Direct 0.3 mg/dL (0-0.2); Glucose Level 91 mg/dL (74-106); Protein, Total 7.7 g/dL (6.4-8.2); Sodium Level 138 mmol/L (136-145)
[2019-02-01 22:05] LABS: Potassium 2.8 mmol/L (3.5-5.1)
[2019-02-01] MEDS ORDERED: POTASSIUM 25 MEQ EFFERV TAB ONE (22:13)
[2019-02-01] MEDS ORDERED: KCL 20 MEQ/100 mL IVPB 20 MEQ/100 ML BAG IV ONE (22:14)
[2019-02-01] MEDS ORDERED: NA CHLORIDE 0.9% 500 ML ONE (22:15)
[2019-02-01 23:22] LABS: Urine Blood NEGATIVE (NEG); Urine Glucose NEGATIVE (NEG); Urine Protein NEGATIVE (NEG); Urine Specific Gravity 1.015 (1.005-1.030); Urine pH 8.5 (5.0-7.0)
[2019-02-02] LABS: Barbiturates NEGATIVE (NEGATIVE); Benzodiazepines NEGATIVE (NEGATIVE); Cocaine NEGATIVE (NEGATIVE); METHAMPHETAM POSITIVE (NEGATIVE); Methadone NEGATIVE (NEGATIVE); Opiates NEGATIVE (NEGATIVE); Phencyclidine NEGATIVE (NEGATIVE); THC Cannibis NEGATIVE (NEGATIVE)
[2019-02-02] MEDS ORDERED: DIPHENHYDRAMINE 50 MG/ML VIAL ONE (05:08)
[2019-02-02] MEDS ORDERED: LORazepam 2 MG/ML VIAL ONE ×2 (05:37→08:15)
--- NOTE | 2019-02-02 06:13 | EKG ---
Test Date: 2019-02-01 Test Time: 22:31:19 Design Maker: GARRISON MEASUREMENT RESULTS: Intervals: Rate: 79 FL: 132 QRSD: 72 QT: 412 QTc: 472 [place]: P: 50 FL: 132 QRS: 39 T: 9 INTERPRETIVE STATEMENTS: Normal sinus rhythm Nonspecific T wave abnormality Abnormal ECG Compared to ECG 11/25/2014 10:02:07 T-wave abnormality now present ST (T wave) deviation no longer present Possible ischemia no longer present Electronically Signed On 02-02-19 06:12:39 HEARING AID REPAIRER by Sunny Pennington
[2019-02-02] MEDS ORDERED: NA CHLORIDE 0.9% 500 ML ONE (07:16)
[2019-02-02] MEDS ORDERED: KCL 20 MEQ/100 mL IVPB 20 MEQ/100 ML BAG IV ONE (07:16)
[2019-02-02] MEDS ORDERED: ZIPRASIDONE MESYLA 20 MG/VIAL IM ONE (08:15)
[2019-02-02] MEDS ORDERED: WATER FOR INJ,STERILE 10 ML ONE (08:16)
--- NOTE | 2019-02-02 12:57 | ER ---
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 Checks: Personal items have been removed. The door is open or patient has been ra1 placed in a hallway bed/chair. There are no family/friend visitors at this time Sitter present at this time. Other: John EUCEDA at bedside; no acute distress. resp even and unlabored. 00:15 Safety Checks: Personal items have been removed. The door is open or patient has been ra1 placed in a hallway bed/chair. There are no family/friend visitors at this time Sitter present at this time. John EUCEDA at bedside. AAOx3, calm and cooperative, resp even and unlabored, no acute distress. 00:30 Safety Checks: Personal items have been removed. The door is open or patient has been ra1 placed in a hallway bed/chair. There are no family/friend visitors at this time Sitter present at this time. Other: John EUCEDA at bedside, AAOx3, calm and cooperative, resp even and unlabored, crying, encouraged patient to verbalize feelings, she did not want to discuss her feelings at this time. 00:45 Safety Checks: Personal items have been removed. The door is not opened, nor is patient ra1 placed in a hallway bed/chair. due to or because: John RN at bedside There are no family/friend visitors at this time Sitter present at this time. Other: AAOx3, calm and cooperative, no acute distress, resp even and unlabored. 01:00 Safety Checks: Personal items have been removed. The door is not opened, nor is patient ra1 placed in a hallway bed/chair. due to or because: John RN at bedside. AAOx3, calm and cooperative, no acute distress. no complaints voiced. 01:15 Safety Checks: Personal items have been removed. The door is not opened, nor is patient ra1 placed in a hallway bed/chair. due to or because: John RN at bedside There are no family/friend visitors at this time Sitter present at this time. Other: AAOx3, calm and cooperative, resp even and unlaobred, no acute distress. 01:30 Safety Checks: Personal items have been removed. The door is open or patient has been ra1 placed in a hallway bed/chair. There are no family/friend visitors at this time Sitter present at this time. Other: John RN at bedside, AAOx3, calm and cooperative. No acute distress. 01:45 Safety Checks: Personal items have been removed. The door is open or patient has been ra1 placed in a hallway bed/chair. There are no family/friend visitors at this time Sitter present at this time. Other: AAOx3, [facility] rep at bedside, patient visible to sitter. No acute distress. 02:00 Safety Checks: Personal items have been removed. The door is open or patient has been ra1 placed in a hallway bed/chair. There are no family/friend visitors at this time Sitter present at this time. Other: Patient ambulates to bathroom with supervision, AAOx3, no acute distress. 02:15 Safety Checks: Personal items have been removed. The door is open or patient has been ra1 placed in a hallway bed/chair. There are no family/friend visitors at this time Sitter present at this time. Other: No acute distress. John EUCEDA at bedside. 02:17 Potassium Sent. [id number] 02:30 Safety Checks: Personal items have been removed. The door is open or patient has been ra1 placed in a hallway bed/chair. There are no family/friend visitors at this time Sitter present at this time. Other: awake and alert, no acute distress, john EUCEDA at bedside. 02:45 Safety Checks: Personal items have been removed. The door is open or patient has been ra1 placed in a hallway bed/chair. There are no family/friend visitors at this time Sitter present at this time. Other: awake and alert, no acute distress, appears upset and angry, talking out loud to self, verbalized upset with boyfriend and blames boyfriend for recent drug use, verbalized has been "clean" for 6 years until recently. 03:00 Safety Checks: Personal items have been removed. The door is open or patient has been ra1 placed in a hallway bed/chair. There are no family/friend visitors at this time Sitter present at this time. Other: awake and alert, no acute distress. 03:15 Safety Checks: Personal items have been removed. The door is open or patient has been ra1 placed in a hallway bed/chair. There are no family/friend visitors at this time Sitter present at this time. Other: ambulates to bathroom with supervision, no acute distress. 03:30 Safety Checks: Personal items have been removed. The door is open or patient has been ra1 placed in a hallway bed/chair. There are no family/friend visitors at this time Sitter present at this time. Other: awake and alert, no acute distress. 03:45 Safety Checks: Personal items have been removed. The door is open or patient has been ra1 placed in a hallway bed/chair. There are no family/friend visitors at this time Sitter present at this time. Other: awake and alert, no acute distress, patient crying and appears upset. 04:00 Safety Checks: Personal items have been removed. The door is open or patient has been ra1 placed in a hallway bed/chair. There are no family/friend visitors at this time Sitter present at this time. Other: awake and alert, no acute distress, sitting up at side of bed. 04:18 Safety Checks: Personal items have been removed. The door is open or patient has been ra1 placed in a hallway bed/chair. There are no family/friend visitors at this time Sitter present at this time. 04:30 Safety Checks: Personal items have been removed. The door is open or patient has been ra1 placed in a hallway bed/chair. There are no family/friend visitors at this time Sitter present at this time. Other: awake and alert, no acute distress. 04:45 Safety Checks: Personal items have been removed. The door is open or patient has been ra1 placed in a hallway bed/chair. There are no family/friend visitors at this time Sitter present at this time. Other: awake and alert, not acute distress. 05:00 Safety Checks: Personal items have been removed. The door is open or patient has been ra1 placed in a hallway bed/chair. There are no family/friend visitors at this time Sitter present at this time. Other: awake and alert, no acute distress. 05:15 Safety Checks: Personal items have been removed. The door is open or patient has been ra1 placed in a hallway bed/chair. There are no family/friend visitors at this time Sitter present at this time. Other: awake and alert, no acute distress. 05:29 Safety Checks: Personal items have been removed. The door is open or patient has been ra1 placed in a hallway bed/chair. There are no family/friend visitors at this time Sitter present at this time. Other: awake and alert, no acute distress. 05:45 Safety Checks: Personal items have been removed. The door is open or patient has been ra1 placed in a hallway bed/chair. There are no family/friend visitors at this time Sitter present at this time. Other: awake and alert, no acute distress, intermittent verbal outburst noted. 06:00 Safety Checks: Personal items have been removed. The door is open or patient has been ra1 placed in a hallway bed/chair. There are no family/friend visitors at this time Sitter present at this time. Other: awake and alert, no acute distress, anxiety noted. 06:15 Safety Checks: Personal items have been removed. The door is open or patient has been ra1 placed in a hallway bed/chair. There are no family/friend visitors at this time Sitter present at this time. Other: awake and alert, no acute distress, anxiety noted, pacing in room, having conversation with self. 06:26 faxed patient records to the following facilities in the attempt to transfer. [facility], [facility], [facility], [facility], [facility], [facility], [facility], [facility], [facility], [facility], [facility], [facility], [facility], and [facility]. 06:30 Safety Checks: Personal items have been removed. The door is open or patient has been ra1 placed in a hallway bed/chair. There are no family/friend visitors at this time Sitter present at this time. Other: awake and alert, anxiety noted, no acute distress, having conversation with slef. 06:45 Safety Checks: Personal items have been removed. The door is open or patient has been ra1 placed in a hallway bed/chair. There are no family/friend visitors at this time Sitter present at this time. Other: awake and alert, no acute distress, anxiety noted, holding conversation with someone that is not there, re orients easily. 07:00 Safety Checks: Personal items have been removed. The door is open or patient has been ra1 placed in a hallway bed/chair. There are no family/friend visitors at this time Sitter present at this time. Other: awake and alert, ambulating in room, having conversation with self, no acute distress. 07:00 Safety checks: Items removed: yes. Door open/sign placed on door: yes. Family/friend dh3 present: no. Sitter present: Yes. 07:00 Report given to KINSEY Kraft. cc3 07:12 Abena Haile RN is Primary Nurse. sv 07:15 Safety checks: Items removed: yes. Door open/sign placed on door: yes. Family/friend dh3 present: no. Sitter present: Yes. 07:30 Safety checks: Items removed: yes. Door open/sign placed on door: yes. Family/friend dh3 present: no. Sitter present: Yes. 07:45 Safety checks: Items removed: yes. Door open/sign placed on door: yes. Family/friend dh3 present: no. Sitter present: Yes. 08:00 Safety checks: Items removed: yes. Door open/sign placed on door: yes. Family/friend dh3 present: no. Sitter present: Yes. 08:15 Safety checks: Items removed: yes. Door open/sign placed on door: yes. Family/friend dh3 present: no. Sitter present: Yes. 08:30 Safety checks: Items removed: yes. Door open/sign placed on door: yes. Family/friend dh3 present: no. Sitter present: Yes. 08:45 Safety checks: Items removed: yes. Door open/sign placed on door: yes. Family/friend dh3 present: no. Sitter present: Yes. 09:00 Safety checks: Items removed: yes. Door open/sign placed on door: yes. Family/friend dh3 present: no. Sitter present: Yes. 09:15 Safety checks: Items removed: yes. Door open/sign placed on door: yes. Family/friend dh3 present: no. Sitter present: Yes. 09:30 Safety checks: Items removed: yes. Door open/sign placed on door: yes. Family/friend dh3 present: no. Sitter present: Yes. 09:45 Safety checks: Items removed: yes. Door open/sign placed on door: yes. Family/friend dh3 present: no. Sitter present: Yes. 10:00 Safety checks: Items removed: yes. Door open/sign placed on door: yes. Family/friend dh3 present: no. Sitter present: Yes. 10:15 Safety checks: Items removed: yes. Door open/sign placed on door: yes. Family/friend dh3 present: no. Sitter present: Yes. 10:30 Safety checks: Items removed: yes. Door open/sign placed on door: yes. Family/friend dh3 present: no. Sitter present: Yes. 10:45 Safety checks: Items removed: yes. Door open/sign placed on door: yes. Family/friend dh3 present: no. Sitter present: Yes. 11:00 Safety checks: Items removed: yes. Door open/sign placed on door: yes. Family/friend dh3 present: no. Sitter present: Yes. 11:15 Safety checks: Items removed: yes. Door open/sign placed on door: yes. Family/friend dh3 present: no. Sitter present: Yes. 11:30 Safety checks: Items removed: yes. Door open/sign placed on door: yes. Family/friend dh3 present: no. Sitter present: Yes. 11:30 IV discontinued, intact, bleeding controlled, No redness/swelling at site. Pressure sv dressing applied, IV no longer worked, discontinued by Zulay clarke. 11:45 Safety checks: Items removed: yes. Door open/sign placed on door: yes. Family/friend dh3 present: no. Sitter present: Yes. 11:45 IV discontinued, intact, bleeding controlled, No redness/swelling at site. Pressure dh3 dressing applied. 11:47 Repeat lab(s) drawn. by ma, sent to lab. Inserted saline lock: 22 gauge in right wrist, dh3 using aseptic technique. Blood collected. 12:00 Safety checks: Items removed: yes. Door open/sign placed on door: yes. Family/friend dh3 present: no. Sitter present: Yes. 12:15 Safety checks: Items removed: yes. Door open/sign placed on door: yes. Family/friend dh3 present: no. Sitter present: Yes. 12:30 Safety checks: Items removed: yes. Door open/sign placed on door: yes. Family/friend dh3 present: no. Sitter present: Yes. 12:37 Attending Physician role handed off by Pernell Park MD rn 12:37 Jamie Love MD is Attending Physician. rn 12:45 Safety checks: Items removed: yes. Door open/sign placed on door: yes. Family/friend dh3 present: no. Sitter present: Yes. 13:00 Safety checks: Items removed: yes. Door open/sign placed on door: yes. Family/friend dh3 present: no. Sitter present: Yes. 13:15 Safety Checks: Personal items have been removed. The door is open or patient has been ss placed in a hallway bed/chair. Sitter present at this time. 13:30 Safety Checks: Personal items have been removed. The door is open or patient has been ss placed in a hallway bed/chair. Sitter present at this time. 13:45 Safety Checks: Personal items have been removed. The door is open or patient has been ss placed in a hallway bed/chair. Sitter present at this time. 14:00 Safety checks: Items removed: yes. Door open/sign placed on door: yes. Family/friend dh3 present: no. Sitter present: Yes. 14:15 Safety checks: Items removed: yes. Door open/sign placed on door: yes. Family/friend dh3 present: no. Sitter present: Yes. 14:30 Safety checks: Items removed: yes. Door open/sign placed on door: yes. Family/friend dh3 present: no. Sitter present: Yes. 14:45 Safety checks: Items removed: yes. Door open/sign placed on door: yes. Family/friend dh3 present: no. Sitter present: Yes. 15:00 Safety checks: Items removed: yes. Door open/sign placed on door: yes. Family/friend dh3 present: no. Sitter present: Yes. 15:15 Safety checks: Items removed: yes. Door open/sign placed on door: yes. Family/friend dh3 present: no. Sitter present: Yes. 15:30 Safety checks: Items removed: yes. Door open/sign placed on door: yes. Family/friend dh3 present: no. Sitter present: Yes. 15:45 Safety checks: Items removed: yes. Door open/sign placed on door: yes. Family/friend dh3 present: no. Sitter present: Yes. 16:00 Safety checks: Items removed: yes. Door open/sign placed on door: yes. Family/friend dh3 present: no. Sitter present: Yes. 16:15 Safety checks: Items removed: yes. Door open/sign placed on door: yes. Family/friend dh3 present: no. Sitter present: Yes. 16:30 Safety checks: Items removed: yes. Door open/sign placed on door: yes. Family/friend dh3 present: no. Sitter present: Yes. 16:45 Safety checks: Items removed: yes. Door open/sign placed on door: yes. Family/friend dh3 present: no. Sitter present: Yes. 17:00 Safety checks: Items removed: yes. Door open/sign placed on door: yes. Family/friend dh3 present: no. Sitter present: Yes. 17:15 Safety checks: Items removed: yes. Door open/sign placed on door: yes. Family/friend dh3 present: no. Sitter present: Yes. 17:30 Safety checks: Items removed: yes. Door open/sign placed on door: yes. Family/friend dh3 present: no. Sitter present: Yes. 17:45 Safety checks: Items removed: yes. Door open/sign placed on door: yes. Family/friend dh3 present: no. Sitter present: Yes. 18:00 Safety checks: Items removed: yes. Door open/sign placed on door: yes. Family/friend dh3 present: no. Sitter present: Yes. 18:15 Safety checks: Items removed: yes. Door open/sign placed on door: yes. Family/friend dh3 present: no. Sitter present: Yes. 18:30 Safety checks: Items removed: yes. Door open/sign placed on door: yes. Family/friend dh3 present: no. Sitter present: Yes. 18:45 Safety checks: Items removed: yes. Door open/sign placed on door: yes. Family/friend dh3 present: no. Sitter present: Yes. 19:00 Safety Checks: Personal items have been removed. The door is open or patient has been jd3 placed in a hallway bed/chair. There are no family/friend visitors at this time Sitter present at this time. 19:07 Primary Nurse role handed off by Abena Haile RN 19:07 Report given to Sam EUCEDA and Shyanne EUCEDA. 19:15 Safety Checks: Personal items have been removed. The door is open or patient has been jd3 placed in a hallway bed/chair. There are no family/friend visitors at this time Sitter present at this time. 19:30 Safety Checks: Personal items have been removed. The door is open or patient has been jd3 placed in a hallway bed/chair. There are no family/friend visitors at this time Sitter present at this time. 19:35 Sam Eaton, KINSEY is Primary Nurse. jd3 19:45 Safety Checks: Personal items have been removed. The door is open or patient has been jd3 placed in a hallway bed/chair. There are no family/friend visitors at this time Sitter present at this time. 20:00 Safety Checks: Personal items have been removed. The door is open or patient has been jd3 placed in a hallway bed/chair. There are no family/friend visitors at this time Sitter present at this time. 20:15 Safety Checks: Personal items have been removed. The door is open or patient has been jd3 placed in a hallway bed/chair. There are no family/friend visitors at this time Sitter present at this time. 20:30 Safety Checks: Personal items have been removed. The door is open or patient has been jd3 placed in a hallway bed/chair. There are no family/friend visitors at this time Sitter present at this time. 20:45 Safety Checks: Personal items have been removed. The door is open or patient has been jd3 placed in a hallway bed/chair. There are no family/friend visitors at this time Sitter present at this time. 21:00 Safety Checks: Personal items have been removed. The door is open or patient has been jd3 placed in a hallway bed/chair. There are no family/friend visitors at this time Sitter present at this time. 21:15 Safety Checks: Personal items have been removed. The door is open or patient has been jd3 placed in a hallway bed/chair. There are no family/friend visitors at this time Sitter present at this time. 21:15 Diet tray given. Verbal reassurance given. jd3 21:30 Safety Checks: Personal items have been removed. The door is open or patient has been jd3 placed in a hallway bed/chair. There are no family/friend visitors at this time Sitter present at this time. 21:45 Safety Checks: Personal items have been removed. The door is open or patient has been jd3 placed in a hallway bed/chair. There are no family/friend visitors at this time Sitter present at this time. 22:00 Safety Checks: Personal items have been removed. The door is open or patient has been jd3 placed in a hallway bed/chair. There are no family/friend visitors at this time Sitter present at this time. 22:15 Safety Checks: Personal items have been removed. The door is open or patient has been jd3 placed in a hallway bed/chair. There are no family/friend visitors at this time Sitter present at this time. 22:30 Safety Checks: Personal items have been removed. The door is open or patient has been jd3 placed in a hallway bed/chair. There are no family/friend visitors at this time Sitter present at this time. 22:45 Safety Checks: Personal items have been removed. The door is open or patient has been jd3 placed in a hallway bed/chair. There are no family/friend visitors at this time Sitter present at this time. 23:00 Safety Checks: Personal items have been removed. The door is open or patient has been jd3 placed in a hallway bed/chair. There are no family/friend visitors at this time Sitter present at this time. 23:15 Safety Checks: Personal items have been removed. The door is open or patient has been jd3 placed in a hallway bed/chair. There are no family/friend visitors at this time Sitter present at this time. 23:30 Safety Checks: Personal items have been removed. The door is open or patient has been jd3 placed in a hallway bed/chair. There are no family/friend visitors at this time Sitter present at this time. 23:45 Safety Checks: Personal items have been removed. The door is open or patient has been jd3 placed in a hallway bed/chair. There are no family/friend visitors at this time Sitter present at this time. 02/03 00:00 Safety Checks: Personal items have been removed. The door is open or patient has been jd3 placed in a hallway bed/chair. There are no family/friend visitors at this time Sitter present at this time. 00:15 Safety Checks: Personal items have been removed. The door is open or patient has been jd3 placed in a hallway bed/chair. There are no family/friend visitors at this time Sitter present at this time. 00:30 Safety Checks: Personal items have been removed. The door is open or patient has been jd3 placed in a hallway bed/chair. There are no family/friend visitors at this time Sitter present at this time. 00:45 Safety Checks: Personal items have been removed. The door is open or patient has been jd3 placed in a hallway bed/chair. There are no family/friend visitors at this time Sitter present at this time. 01:00 Safety Checks: Personal items have been removed. The door is open or patient has been jd3 placed in a hallway bed/chair. There are no family/friend visitors at this time Sitter present at this time. 01:15 Safety Checks: Personal items have been removed. The door is open or patient has been jd3 placed in a hallway bed/chair. There are no family/friend visitors at this time Sitter present at this time. 01:30 Safety Checks: Personal items have been removed. The door is open or patient has been jd3 placed in a hallway bed/chair. There are no family/friend visitors at this time Sitter present at this time. 01:45 Safety Checks: Personal items have been removed. The door is open or patient has been jd3 placed in a hallway bed/chair. There are no family/friend visitors at this time Sitter present at this time. 02:00 Safety Checks: Personal items have been removed. The door is open or patient has been jd3 placed in a hallway bed/chair. There are no family/friend visitors at this time Sitter present at this time. 02:15 Safety Checks: Personal items have been removed. The door is open or patient has been jd3 placed in a hallway bed/chair. There are no family/friend visitors at this time Sitter present at this time. 02:30 Safety Checks: Personal items have been removed. The door is open or patient has been jd3 placed in a hallway bed/chair. There are no family/friend visitors at this time Sitter present at this time. 02:45 Safety Checks: Personal items have been removed. The door is open or patient has been jd3 placed in a hallway bed/chair. There are no family/friend visitors at this time Sitter present at this time. 03:00 Safety Checks: Personal items have been removed. The door is open or patient has been jd3 placed in a hallway bed/chair. There are no family/friend visitors at this time Sitter present at this time. 03:15 Safety Checks: Personal items have been removed. The door is open or patient has been jd3 placed in a hallway bed/chair. There are no family/friend visitors at this time Sitter present at this time. 03:30 Safety Checks: Personal items have been removed. The door is open or patient has been jd3 placed in a hallway bed/chair. There are no family/friend visitors at this time Sitter present at this time. 03:45 Safety Checks: Personal items have been removed. The door is open or patient has been jd3 placed in a hallway bed/chair. There are no family/friend visitors at this time Sitter present at this time. 04:00 Safety Checks: Personal items have been removed. The door is open or patient has been jd3 placed in a hallway bed/chair. There are no family/friend visitors at this time Sitter present at this time. 04:15 Safety Checks: Personal items have been removed. The door is open or patient has been jd3 placed in a hallway bed/chair. There are no family/friend visitors at this time Sitter present at this time. 04:30 Safety Checks: Personal items have been removed. The door is open or patient has been jd3 placed in a hallway bed/chair. There are no family/friend visitors at this time Sitter present at this time. 04:45 Safety Checks: Personal items have been removed. The door is open or patient has been jd3 placed in a hallway bed/chair. There are no family/friend visitors at this time Sitter present at this time. 05:00 Safety Checks: Personal items have been removed. The door is open or patient has been jd3 placed in a hallway bed/chair. There are no family/friend visitors at this time Sitter present at this time. 05:15 Safety Checks: Personal items have been removed. The door is open or patient has been jd3 placed in a hallway bed/chair. There are no family/friend visitors at this time Sitter present at this time. 05:30 Safety Checks: Personal items have been removed. The door is open or patient has been jd3 placed in a hallway bed/chair. There are no family/friend visitors at this time Sitter present at this time. 05:45 Safety Checks: Personal items have been removed. The door is open or patient has been jd3 placed in a hallway bed/chair. There are no family/friend visitors at this time Sitter present at this time. 06:00 Safety Checks: Personal items have been removed. The door is open or patient has been jd3 placed in a hallway bed/chair. There are no family/friend visitors at this time Sitter present at this time. 06:15 Safety Checks: Personal items have been removed. The door is open or patient has been jd3 placed in a hallway bed/chair. There are no family/friend visitors at this time Sitter present at this time. 06:30 Safety Checks: Personal items have been removed. The door is open or patient has been jd3 placed in a hallway bed/chair. There are no family/friend visitors at this time Sitter present at this time. 06:45 Safety Checks: Personal items have been removed. The door is open or patient has been jd3 placed in a hallway bed/chair. There are no family/friend visitors at this time Sitter present at this time. 07:00 Safety Checks: Personal items have been removed. The door is open or patient has been bp placed in a hallway bed/chair. There are no family/friend visitors at this time Sitter present at this time. 07:15 Safety Checks: Personal items have been removed. The door is open or patient has been bp placed in a hallway bed/chair. There are no family/friend visitors at this time Sitter present at this time. 07:30 Safety Checks: Personal items have been removed. The door is open or patient has been ph placed in a hallway bed/chair. There are no family/friend visitors at this time Sitter present at this time. 07:45 Safety Checks: Personal items have been removed. The door is open or patient has been ph placed in a hallway bed/chair. There are no family/friend visitors at this time Sitter present at this time. 08:00 Safety Checks: Personal items have been removed. The door is open or patient has been ph placed in a hallway bed/chair. There are no family/friend visitors at this time Sitter present at this time. 08:15 Safety Checks: Personal items have been removed. The door is open or patient has been ph placed in a hallway bed/chair. There are no family/friend visitors at this time Sitter present at this time. 08:30 Safety Checks: Personal items have been removed. The door is open or patient has been ph placed in a hallway bed/chair. There are no family/friend visitors at this time Sitter present at this time. 08:45 Safety Checks: Personal items have been removed. The door is open or patient has been ph placed in a hallway bed/chair. There are no family/friend visitors at this time Sitter present at this time. 09:00 Safety checks: Items removed: yes. Door open/sign placed on door: yes. Family/friend ms present: no. Sitter present: Yes. 09:15 Safety checks: Items removed: yes. Door open/sign placed on door: yes. Family/friend ms present: no. Sitter present: Yes. 09:17 Attending Physician role handed off by Jamie Love MD kdr 09:17 Farrukh Gross MD is Attending Physician. kdr 09:30 Safety checks: Items removed: yes. Door open/sign placed on door: yes. Family/friend ms present: no. Sitter present: Yes. 10:00 Safety checks: Items removed: yes. Door open/sign placed on door: yes. Family/friend ms present: no. Sitter present: Yes. 10:15 Safety checks: Items removed: yes. Door open/sign placed on door: yes. Family/friend ms present: no. Sitter present: Yes. 10:30 Safety checks: Items removed: yes. Door open/sign placed on door: yes. Family/friend ms present: no. Sitter present: Yes. Warm blanket given. 10:45 Safety checks: Items removed: yes. Door open/sign placed on door: yes. Family/friend ms present: no. Sitter present: Yes. 10:53 Psychiatrist in room with Patent at this time. ms 11:00 Safety checks: Items removed: yes. Door open/sign placed on door: yes. Family/friend ms present: yes. Family/friends encouraged to stay with patient. Sitter present: Yes. 11:32 No provider procedures requiring assistance completed. IV discontinued, intact, ph bleeding controlled, No redness/swelling at site. Pressure dressing applied. Administered Medications: 02/01 22:20 Drug: Potassium Effervescent Tablet 50 mEq Route: PO; cc3 23:38 Follow up: Response: No adverse reaction cc3 22:25 Drug: Potassium Chloride 20 mEq Route: IV; Rate: calculated rate; Site: right cc3 antecubital; 02/02 00:30 Follow up: Response: No adverse reaction; IV Status: Completed infusion; IV Intake: cc3 100ml 04:51 CANCELLED (Duplicate Order): Benadryl 50 mg IVP once cc3 05:11 Drug: Benadryl 50 mg Route: IVP; Site: right antecubital; cc3 05:15 Follow up: Response: No adverse reaction cc3 05:41 Drug: Ativan 0.5 mg Route: IVP; Site: right antecubital; cc3 06:13 Follow up: Response: No adverse reaction cc3 07:26 Drug: Potassium Chloride 20 mEq Route: IV; Rate: calculated rate; Site: right sv antecubital; 08:10 Follow up: IV Pause: 02/02/2019 08:10; IV Pause Reason: Limited IV access/Medication sv interaction; Pt agitated and attempted to take out IV. 09:08 Follow up: IV Resume: 02/02/2019 09:08; IV Resume Reason: Additional IV access/No sv medication interaction 10:37 Follow up: Response: No adverse reaction; IV Status: Completed infusion; IV Intake: sv 100ml 08:13 CANCELLED (Duplicate Order): Benadryl 50 mg IVP once rn 08:17 Drug: Ativan 1 mg Route: IVP; Site: right antecubital; tw2 08:20 Follow up: Response: No adverse reaction sv 08:17 CANCELLED (Duplicate Order): Geodon 5 mg IM once tw2 08:20 Drug: Geodon 10 mg Route: IM; Site: right deltoid; sv 09:08 Follow up: Response: No adverse reaction; Marked relief of symptoms sv 17:45 Drug: Valium 5 mg Route: PO; sv 18:00 Follow up: Response: No adverse reaction sv Intake: 00:30 IV: 100ml; Total: 100ml. cc3 07:30 PO: 200ml (Water); Total: 300ml. sv 10:37 IV: 100ml; Total: 400ml. sv 17:47 PO: 240ml (Juice); Total: 640ml. sv Output: 09:00 Urine: 100ml (Voided); Total: 100ml. sv Outcome: 12:56 ER care complete, transfer ordered by MD. rn 02/03 11:10 Discharge ordered by . kdr 11:32 Discharged to home ambulatory, with family. ph 11:32 Condition: good 11:32 Discharge instructions given to patient, family, Instructed on discharge instructions, follow up and referral plans. medication usage, Demonstrated understanding of instructions, follow-up care, medications, Prescriptions given X 2. 11:33 Patient left the ED. ph Signatures: Sharon Li, CLINICAL REHAB LIAISON-C CLINICAL REHAB LIAISON-Ckb Veronica Rocha, RN RN aj1 Abena Haile, RN RN Farrukh Beard MD MD kdr Sanford, Deirdre ds1 Malika Gonzalez ms, Roman, MD MD rn Smirch, Klarissa, RN RN ss Radha Bridges RN KINSEY ph Adrián, Yasmeen, RN RN tw2 Heike Anderson jb5 Zulay Vasquez 3 Hilda Ralph RN Sam Shah ea RN RN jd3 Teo Hoffmann RN RN Shannon Rust Charlene cc3 John Bedoya RN RN ra1 Hilda Multani RN RN ef Corrections: (The following items were deleted from the chart) 02/01 21:49 21:45 Report received from Gloria Clarke ra1 ra1 22:32 21:09 Suicide Risk Assessment: Sad Person Scale: Sex of patient: Female: Score 0 cc3 points. Age of patient: Score 1 point if patient 15-34. Depression: Score 0 point if signs of depression are not present. Previous Attempt: Score 0 point if patient has not previously attempted suicide. Substance Abuse: Score 0 point if patient does not abuse alcohol or drugs. Rational Thinking: Score 0 point if patient has rational thinking. Social Support: Score 0 if social support is present/available. Organized Plan: Score 0 if patient did not have an organized plan in place. Relationship: Score 1 point if patient is , , , or for a single male Chronic Sickness: Score 0 point if patient does not have a chronic illness, debilitating, or severe disorder. TOTAL POINTS: If total points are 0-2, proposed clinical action is to send home with follow-up. cc3 22:58 22:30 Reassessment: Patient appears in no apparent distress at this time. Patient cc3 and/or family updated on plan of care and expected duration. Pain level reassessed. Patient is alert, oriented x 3, equal unlabored respirations, skin warm/dry/pink. cc3 02/02 01:53 02/01 21:09 Suicide Risk Assessment: Sad Person Scale: Sex of patient: Female: Score 0 cc3 points. Age of patient: Score 1 point if patient 15-34. Depression: Score 0 point if signs of depression are not present. Previous Attempt: Score 0 point if patient has not previously attempted suicide. Substance Abuse: Score 1 point if patient abuses alcohol or drugs. Rational Thinking: Score 0 point if patient has rational thinking. Social Support: Score 0 if social support is present/available. Organized Plan: Score 0 if patient did not have an organized plan in place. Relationship: Score 0 point if patient has a spouse or domestic partner. Chronic Sickness: Score 0 point if patient does not have a chronic illness, debilitating, or severe disorder. TOTAL POINTS: If total points are 0-2, proposed clinical action is to send home with follow-up. 3 02/02 01:54 02/01 21:09 Suicide Risk Assessment: Sad Person Scale: Sex of patient: Female: Score 0 3 points. Age of patient: Score 1 point if patient 15-34. Depression: Score 0 point if signs of depression are not present. Previous Attempt: Score 1 point if patient has previously attempted suicide. Substance Abuse: Score 1 point if patient abuses alcohol or drugs. Rational Thinking: Score 0 point if patient has rational thinking. Social Support: Score 0 if social support is present/available. Organized Plan: Score 0 if patient did not have an organized plan in place. Relationship: Score 0 point if patient has a spouse or domestic partner. Chronic Sickness: Score 0 point if patient does not have a chronic illness, debilitating, or severe disorder. TOTAL POINTS: If total points are 0-2, proposed clinical action is to send home with follow-up. cc3 02/02 01:55 02/01 21:00 Derm: Skin is intact, is healthy with good turgor, Skin is pink, warm \\T\\ cc3 dry. normal, cc3 02/02 02:00 01:30 Safety Checks: Personal items have been removed. The door is open or patient has ra1 been placed in a hallway bed/chair. ra1 04:57 04:30 Safety Checks: Personal items have been removed. The door is open or patient has ra1 been placed in a hallway bed/chair. There are no family/friend visitors at this time Sitter present at this time. ra1 07:57 07:05 BP 130 / 92; Pulse 116bpm; Resp 18bpm; Pulse Ox 100% RA; 3 3 21:17 20:02 Reassessment: father at bedside Jeremy Hartmanany- [phone] jd3 jd3 21:37 21:00 Diet tray given. Verbal reassurance given. jd3 jd3
--- NOTE | 2019-02-02 12:57 | EDPHYS ---
Physician Documentation [facility] Name: Talita Hernandez Age: 28 yrs Sex: Female : 1990 Arrival Date: 02/01/2019 Time: 20:02 Bed 7 Private MD: ED Physician Farrukh Gross HPI: 02/02 01:51 This 28 yrs old Female presents to ER via Ambulatory with complaints of kb Suicidal Ideation. 01:51 The patient presents to the emergency department with anxiety, depression, suicide kb ideation, but the patient has no formulated plan. Onset: The symptoms/episode began/occurred today. Past psychiatric history: Prior diagnosis: depression. Associated signs and symptoms: Pertinent positives; anxiety, depression, suicide ideation. Severity of symptoms: At their worst the symptoms were moderate in the emergency department the symptoms are unchanged. The patient has experienced similar episodes in the past. The patient has not recently seen a physician. Pt reports her brother and neighbor were making fun of her and it upset her. Then they started banging loudly so she heard it in the living room and it made her more upset. Reports she was throwing stuff around and it made her father mad. Reports she has had intermittent thoughts of suicide over the years and started having them again tonight. Denies having a plan. Denies suicidal thoughts at this time. . 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 - Social history:: Smoking status: Patient/guardian denies using tobacco, Patient uses alcohol, occasionally. street drugs, marijuana, Methamphetamine (Meth). - Ebola Screening: : Patient denies travel to an Ebola-affected area in the 21 days before illness onset. ROS: 02/02 01:49 Constitutional: Negative for fever, chills, and weight loss, ENT: Negative for injury, kb pain, and discharge, Neck: Negative for injury, pain, and swelling, Cardiovascular: Negative for chest pain, palpitations, and edema, Respiratory: Negative for shortness of breath, cough, wheezing, and pleuritic chest pain, Abdomen/GI: Negative for abdominal pain, nausea, vomiting, diarrhea, and constipation, Back: Negative for injury and pain, MS/Extremity: Negative for injury and deformity, Skin: Negative for injury, rash, and discoloration, Neuro: Negative for headache, weakness, numbness, tingling, and seizure. Psych: Positive for anxiety, depression, suicidal ideation. Exam: 01:49 Constitutional: This is a well developed, well nourished patient who is awake, alert, kb and in no acute distress. Head/Face: Normocephalic, atraumatic. ENT: Nares patent. No nasal discharge, no septal abnormalities noted. Tympanic membranes are normal and external auditory canals are clear. Oropharynx with no redness, swelling, or masses, exudates, or evidence of obstruction, uvula midline. Mucous membranes moist. Neck: Trachea midline, no thyromegaly or masses palpated, and no cervical lymphadenopathy. Supple, full range of motion without nuchal rigidity, or vertebral point tenderness. No Meningismus. Chest/axilla: Normal chest wall appearance and motion. Nontender with no deformity. No lesions are appreciated. Cardiovascular: Regular rate and rhythm with a normal S1 and S2. No gallops, murmurs, or rubs. Normal PMI, no JVD. No pulse deficits. Respiratory: Lungs have equal breath sounds bilaterally, clear to auscultation and percussion. No rales, rhonchi or wheezes noted. No increased work of breathing, no retractions or nasal flaring. Abdomen/GI: Soft, non-tender, with normal bowel sounds. No distension or tympany. No guarding or rebound. No evidence of tenderness throughout. Back: No spinal tenderness. No costovertebral tenderness. Full range of motion. Skin: Warm, dry with normal turgor. Normal color with no rashes, no lesions, and no evidence of cellulitis. MS/ Extremity: Pulses equal, no cyanosis. Neurovascular intact. Full, normal range of motion. Neuro: Awake and alert, GCS 15, oriented to person, place, time, and situation. Cranial nerves II-XII grossly intact. Motor strength 5/5 in all extremities. Sensory grossly intact. Cerebellar exam normal. Normal gait. 01:49 Psych: Behavior/mood is cooperative, Affect is animated, Oriented to person, place, time, Patient having thoughts of suicide. Denies suicidal plan. Judgement / Insight is normal. Memory is normal. Delusions/hallucinations are not present. 02/03 11:04 Psych: Behavior/mood is pleasant, cooperative, depressed, Affect is flat, Oriented to kdr person, place, time, Oriented to situation. Patient has no thoughts/intents to harm self or others. denies SI, Judgement / Insight is normal. Memory is normal. Delusions/hallucinations are not present. Vital Signs: 02/01 20:13 BP 124 / 97; Pulse 107; Resp 20; Temp 98.8; Pulse Ox 100% on R/A; Weight 61.23 kg (R); aj1 Height 5 ft. 6 in. (167.64 cm) (R); Pain 0/10; 20:42 BP 130 / 91; Pulse 72; Resp 18; Temp 98.4(O); Pulse Ox 100% on R/A; jb5 22:21 BP 113 / 73; Pulse 74; Resp 12; Pulse Ox 100% on R/A; ra1 23:51 BP 106 / 67; Pulse 88; Resp 17; Pulse Ox 98% on R/A; ra1 02/02 00:02 Temp 98.1(O); ra1 02:42 BP 130 / 83; Pulse 99; Resp 18; Pulse Ox 99% ; ea 03:42 BP 129 / 96 LA Sitting (auto/reg); Pulse 119; Resp 22; Pulse Ox 96% on R/A; ra1 07:05 BP 130 / 92; Pulse 116; Resp 18; Temp 97.8(TE); Pulse Ox 100% on R/A; dh3 11:00 BP 126 / 82; Pulse 89; Resp 16; Pulse Ox 100% on R/A; dh3 17:31 BP 130 / 90; Pulse 97; Resp 19; Temp 98.1(O); Pulse Ox 100% on R/A; dh3 21:18 BP 118 / 66; Pulse 80; Resp 16 S; Pulse Ox 99% on R/A; jd3 02/03 01:15 BP 114 / 84; Pulse 94; Resp 18 S; Pulse Ox 100% on R/A; jd3 07:00 BP 110 / 78; Pulse 91; Resp 18; Pulse Ox 99% on R/A; ph 11:32 BP 115 / 85; Pulse 87; Resp 18; Temp 97.5; Pulse Ox 100% on R/A; ph 02/01 20:13 Body Mass Index 21.79 (61.23 kg, 167.64 cm) aj1 MDM: 02/01 20:25 Patient medically screened. kb 02/02 01:49 Data reviewed: vital signs, nurses notes. Data interpreted: Pulse oximetry: on room air kb is 98 %. Interpretation: normal. ED course: [facility] Screener at bedside. 02:02 ED course: [facility] recommends inpatient treatment for pt. States pt told her that kb she is still suicidal, has been since she was 15 and has a plan, but does not want to disclose it. Pt was not engaged with screener, playing on cell phone during evaluation. . 02:09 ED course: Pt reports she doesn't really want to go to an inpatient facility, but knows kb she doesn' t have a choice so she will go voluntarily. 02:11 Transition of care: After a detail discussion of the patient's case, care is kb transferred to P[place]ell [place] MD. 12:38 ED course: Pt improved with medication, sleeping comfortably, had become impatient rn earlier trying to pull out IV, still pending transfer. Potassium improved.. 12:54 Differential diagnosis: depression. Counseling: I had a detailed discussion with the rn patient and/or guardian regarding: the historical points, exam findings, and any diagnostic results supporting the discharge/admit diagnosis, lab results, the need to transfer to another facility, [facility] does not immediately have the required specialist. Response to treatment: the patient's symptoms have mildly improved after treatment, and as a result, I will admit patient. 02/03 11:49 ED course: Consultation Request: Dr. Manriquez - evaluate patient for possible kdr discharge versus transfer for inpatient care.. 02/01 20:25 Order name: Acetaminophen; Complete Time: 22:08 kb 02/02 20: Order name: Basic Metabolic Panel; Complete Time: 22:08 kb 02/01 Order name: CBC with Diff; Complete Time: 21:43 kb 02/01 20: Order name: ETOH Level; Complete Time: 22:00 kb 02/01 Order name: Hepatic Function; Complete Time: 22:08 kb 02/01 20:25 Order name: PT-INR; Complete Time: 21:49 kb 02/01 20:25 Order name: Ptt, Activated; Complete Time: 21:49 kb 02/01 20:25 Order name: Salicylate; Complete Time: 22:16 kb 02/01 20:25 Order name: Urine Drug Screen; Complete Time: 00:01 kb 02/01 23:19 Order name: Urine Dipstick--Ancillary (enter results); Complete Time: 23:30 mw2 02/01 23:19 Order name: Urine --Ancillary (enter results); Complete Time: 23:30 mw2 02/02 02:08 Order name: Potassium; Complete Time: 08:12 kb 02/02 11:05 Order name: Potassium; Complete Time: 12:37 sv 02/01 20:25 Order name: EKG; Complete Time: 20:26 kb 02/01 20:25 Order name: EKG - Nurse/Tech; Complete Time: 22:40 kb 02/01 20:25 Order name: IV Saline Lock; Complete Time: 22:27 kb 02/02 07:06 Order name: Diet Regular; Complete Time: 07:07 dh3 02/02 13:38 Order name: Diet Regular; Complete Time: 13:38 ss 02/03 07:18 Order name: Diet Regular; Complete Time: 07:19 ph 02/01 20:25 Order name: Labs collected and sent; Complete Time: 22:27 kb 02/01 20:25 Order name: Urine Dipstick-Ancillary (obtain specimen); Complete Time: 23:38 kb Administered Medications: 02/01 22:20 Drug: Potassium Effervescent Tablet 50 mEq Route: PO; cc3 23:38 Follow up: Response: No adverse reaction cc3 22:25 Drug: Potassium Chloride 20 mEq Route: IV; Rate: calculated rate; Site: right cc3 antecubital; 02/02 00:30 Follow up: Response: No adverse reaction; IV Status: Completed infusion; IV Intake: cc3 100ml 04:51 CANCELLED (Duplicate Order): Benadryl 50 mg IVP once cc3 05:11 Drug: Benadryl 50 mg Route: IVP; Site: right antecubital; cc3 05:15 Follow up: Response: No adverse reaction cc3 05:41 Drug: Ativan 0.5 mg Route: IVP; Site: right antecubital; cc3 06:13 Follow up: Response: No adverse reaction cc3 07:26 Drug: Potassium Chloride 20 mEq Route: IV; Rate: calculated rate; Site: right sv antecubital; 08:10 Follow up: IV Pause: 02/02/2019 08:10; IV Pause Reason: Limited IV access/Medication sv interaction; Pt agitated and attempted to take out IV. 09:08 Follow up: IV Resume: 02/02/2019 09:08; IV Resume Reason: Additional IV access/No sv medication interaction 10:37 Follow up: Response: No adverse reaction; IV Status: Completed infusion; IV Intake: sv 100ml 08:13 CANCELLED (Duplicate Order): Benadryl 50 mg IVP once rn 08:17 Drug: Ativan 1 mg Route: IVP; Site: right antecubital; tw2 08:20 Follow up: Response: No adverse reaction sv 08:17 CANCELLED (Duplicate Order): Geodon 5 mg IM once tw2 08:20 Drug: Geodon 10 mg Route: IM; Site: right deltoid; sv 09:08 Follow up: Response: No adverse reaction; Marked relief of symptoms sv 17:45 Drug: Valium 5 mg Route: PO; sv 18:00 Follow up: Response: No adverse reaction sv Disposition: 02/03 11:04 Co-signature as Attending Physician, Farrukh Gross MD I agree with the assessment and kdr plan of care. Disposition: 02/03/19 11:10 Discharged to Home. Impression: Depression, Suicidal Ideation, Poor anger management. - Condition is Stable. - Discharge Instructions: Suicidal Feelings: How to Help Yourself, Helping Someone Who is Suicidal, Persistent Depressive Disorder, [id number]. - Prescriptions for Seroquel 50 mg Oral tablet - take 1 tablet by ORAL route At bedtime; 10 tablet. Prozac 20 mg Oral Capsule - take 1 capsule by ORAL route once daily; 10 capsule. - Medication Reconciliation Form, Thank You Letter form. - Follow up: Private Physician; When: 2 - 3 days; Reason: If symptoms return, Further diagnostic work-up, Recheck today's complaints, Continuance of care, Re-evaluation by your physician. - Problem is an acute exacerbation. - Symptoms have improved. - Notes: Follow-up as directed Signatures: Dispatcher [employer] EDSharon Garg, EMBOSSING PRESS OPERATOR-C EMBOSSING PRESS OPERATOR-Ckb Veronica Rocha, RN RN aj1 Abena Haile, RN RN Farrukh Beard MD MD kdr Nieto, Roman, MD MD rn Hall, Patricia, RN RN ph Adrián, Yasmeen, RN RN tw2 Wendie Crawford cc3 Corrections: (The following items were deleted from the chart) 02/02 04:51 04:51 Benadryl 50 mg IVP once ordered. cc3 cc3 08:13 08:12 Benadryl 50 mg IVP once ordered. rn rn 08:17 08:13 Geodon 5 mg IM once ordered. rn tw2 08:17 08:17 Geodon 5 mg IM once ordered. tw2 tw2 02/03 11:09 02/02 12:56 02/02/2019 12:56 Transfer ordered to [facility]. Diagnosis is Suicidal kdr ideations. Reason for transfer: Higher level of care. Accepting physician is . Condition is Stable. Problem is new. Symptoms have improved. rn 02/03 11:33 11:10 02/03/2019 11:10 Discharged to Home. Impression: Depression, Suicidal Ideation, ph Poor anger management. Condition is Stable. Forms are Medication Reconciliation Form, Thank You Letter, Antibiotic Education, Prescription Opioid Use. Follow up: Private Physician; When: 2 - 3 days; Reason: If symptoms return, Further diagnostic work-up, Recheck today's complaints, Continuance of care, Re-evaluation by your physician. Problem is an acute exacerbation. Symptoms have improved. kdr
[2019-02-02] MEDS ORDERED: DIAZEPAM 5 MG TABLET ONE (17:45)
[2019-02-03 11:59] VITALS: BP 115/85; TEMP 97.5; O2SAT 100
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
== END 2019-02-03 11:33 | disposition home or self-care (01) ==
LOC: ER 20:00
DX: F32.9 Major depressive disorder, single episode, unspecified (principal); R45.4 Irritability and anger
CPT/HCPCS: 36415; 80048; 80076; 80307; 80320; 80329; 81003; 81025; 85025; 85610; 85730; 93005; 96365; 96366; 96372; 96375; 99285; J7040

== ENCOUNTER 2019-03-10 13:30 | Emergency (ER) | payer SELFPAY ==
[2019-03-10] MEDS ORDERED: dexAMETHasone 10 MG/ML VIAL ONE (15:47)
--- NOTE | 2019-03-10 15:55 | ER ---
Nurse's Notes [facility] Name: Talita Hernandez Age: 28 yrs Sex: Female : 1990 Arrival Date: 03/10/2019 Time: 13:32 Bed 14 Private MD: Diagnosis: Acute pharyngitis;Rash and other nonspecific skin eruption Presentation: 03/10 13:38 Presenting complaint: Patient states: sore throat for 4 days, now having bumps on hands, feet, and face around mouth. Transition of care: patient was not received from another setting of care. Onset of symptoms was March 07, 2019. Risk Assessment: Do you want to hurt yourself or someone else? Patient reports no desire to harm self or others. Initial Sepsis Screen: Does the patient meet any 2 criteria? No. Patient's initial sepsis screen is negative. Does the patient have a suspected source of infection? No. Patient's initial sepsis screen is negative. Care prior to arrival: None. 13:38 Method Of Arrival: Ambulatory 13:38 Acuity: MILAGROS 5 Triage Assessment: 13:39 General: Appears in no apparent distress. comfortable, Behavior is calm, cooperative, ch appropriate for age. Pain: Complains of pain in face, right hand, left hand, right foot, left foot and throat Pain currently is 7 out of 10 on a pain scale. 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 - Social history:: Smoking status: Patient/guardian denies using tobacco. - Ebola Screening: : Patient negative for fever greater than or equal to 101.5 degrees Fahrenheit, and additional compatible Ebola Virus Disease symptoms Patient denies exposure to infectious person Patient denies travel to an Ebola-affected area in the 21 days before illness onset No symptoms or risks identified at this time. Screenin:41 Abuse screen: Denies threats or abuse. Denies injuries from another. Nutritional screening: No deficits noted. Tuberculosis screening: No symptoms or risk factors identified. Fall Risk None identified. Assessment: 13:41 Reassessment: Patient appears in no apparent distress at this time. ch 14:30 Respiratory: Airway is patent. tr5 14:30 Respiratory: Respiratory effort is even, unlabored, Breath sounds are clear. EENT: tr5 Throat is reddened. 14:59 Reassessment: Patient appears in no apparent distress at this time. Patient and/or tr5 family updated on plan of care and expected duration. Pain level reassessed. Patient is alert, oriented x 3, equal unlabored respirations, skin warm/dry/pink. Vital Signs: 13:39 BP 115 / 72; Pulse 85; Resp 14; Temp 98.7(O); Pulse Ox 99% on R/A; Weight 72.57 kg; ch Height 5 ft. 6 in. (167.64 cm); Pain 7/10; 13:39 Body Mass Index 25.82 (72.57 kg, 167.64 cm) ED Course: 13:32 Patient arrived in ED. as 13:35 Cesar Milton PA is PHCP. [facility] 13:35 Farrukh Gross MD is Attending Physician. [facility] 13:38 Gely Watson, KINSEY is Primary Nurse. 13:39 Triage completed. 13:39 Arm band placed on left wrist. Patient placed in an exam room, on a stretcher. ch 13:41 No apparent distress. Resting quietly. ch 13:41 Patient has correct armband on for positive identification. Bed in low position. Call light in reach. Side rails up X 1. 13:41 No provider procedures requiring assistance completed. Patient did not have IV access ch during this emergency room visit. 14:57 Isiah Jimenez RN is Primary Nurse. tr5 Administered Medications: 15:47 Drug: Decadron 10 mg Route: IM; Site: right deltoid; tr5 Outcome: 15:53 Discharge ordered by . [facility] 16:10 Discharged to home ambulatory. tr5 16:10 Condition: stable 16:10 Discharge instructions given to patient, family, Instructed on discharge instructions, follow up and referral plans. Demonstrated understanding of instructions, follow-up care. 16:11 Patient left the ED. tr5 Signatures: Gely Watson, KINSEY EUCEDA Cesar Milton PA PA jmm Martinez, Amelia as Scott Jimeneze, RN RN tr5
--- NOTE | 2019-03-10 15:55 | EDPHYS ---
Physician Documentation [facility] Name: Tailta Hernandez Age: 28 yrs Sex: Female : 1990 Arrival Date: 03/10/2019 Time: 13:32 Bed 14 Private MD: ED Physician Farrukh Gross HPI: 03/10 13:42 This 28 yrs old Female presents to ER via Ambulatory with complaints of Sore jmm Throat, Rash. 13:42 The patient presents with sore throat. Onset: The symptoms/episode began/occurred jmm gradually, 2 day(s) ago. Modifying factors: The symptoms are alleviated by nothing, the symptoms are aggravated by foods, swallowing. Associated signs and symptoms: Pertinent positives: fever, Pertinent negatives cough. This is a 28 year old female with no chronic medical conditions that presents to the ED with complaints of sore throat, rash beginning 2 days ago. Patient states daughter had a sore throat recently as well. . 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 - Social history:: Smoking status: Patient/guardian denies using tobacco. - Ebola Screening: : Patient negative for fever greater than or equal to 101.5 degrees Fahrenheit, and additional compatible Ebola Virus Disease symptoms Patient denies exposure to infectious person Patient denies travel to an Ebola-affected area in the 21 days before illness onset No symptoms or risks identified at this time. ROS: 13:42 Respiratory: Negative for shortness of breath, cough, wheezing, and pleuritic chest jmm pain, Abdomen/GI: Negative for abdominal pain, nausea, vomiting, diarrhea, and constipation. 13:42 Constitutional: Positive for fever. 13:42 ENT: Positive for difficulty swallowing, sore throat. 13:42 Skin: Positive for rash. 13:42 All other systems are negative. Exam: 13:42 Constitutional: This is a well developed, well nourished patient who is awake, alert, jmm and in no acute distress. Eyes: EOMI, no conjunctival erythema appreciated 13:42 Neck: Trachea midline, Supple Chest/axilla: Normal chest wall appearance and motion. 13:42 Abdomen/GI: Non distended, soft Back: Normal ROM 13:42 MS/ Extremity: Moves all extremities, no obvious deformities appreciated, no edema noted to the lower extremities Neuro: Awake and alert, normal gait Psych: Behavior is normal, Mood is normal, Patient is cooperative and pleasant 13:42 Head/face: papular perioral lesions noted. 13:42 ENT: posterior erythema noted with palatal petechiae. 13:42 Cardiovascular: Rate: normal, Rhythm: regular, Pulses: no pulse deficits are appreciated. 13:42 Respiratory: the patient does not display signs of respiratory distress, Respirations: normal, Breath sounds: are clear throughout. 13:42 Skin: papular rash noted to the face, hands. Vital Signs: 13:39 BP 115 / 72; Pulse 85; Resp 14; Temp 98.7(O); Pulse Ox 99% on R/A; Weight 72.57 kg; ch Height 5 ft. 6 in. (167.64 cm); Pain 7/10; 13:39 Body Mass Index 25.82 (72.57 kg, 167.64 cm) ch MDM: 13:42 Patient medically screened. [facility] 15:51 Data reviewed: vital signs, nurses notes. Counseling: I had a detailed discussion with huan the patient and/or guardian regarding: the historical points, exam findings, and any diagnostic results supporting the discharge/admit diagnosis, lab results, the need for outpatient follow up, to return to the emergency department if symptoms worsen or persist or if there are any questions or concerns that arise at home. ED course: Patient is alert and non toxic in appearance in the ED. Patient advised to follow up with PCP and otherwise given strict return precautions. Patient understood and agrees with the plan of care. . 03/10 13:36 Order name: Strep; Complete Time: 15:12 [facility] 03/10 14:42 Order name: Throat Culture EDMS Administered Medications: 15:47 Drug: Decadron 10 mg Route: IM; Site: right deltoid; tr5 Disposition: 16:45 Co-signature as Attending Physician, Farrukh Gross MD I agree with the assessment and kdr plan of care. Disposition: 03/10/19 15:53 Discharged to Home. Impression: Acute pharyngitis, Rash and other nonspecific skin eruption. - Condition is Stable. - Discharge Instructions: Hand, Foot, and Mouth Disease, Pediatric, Pharyngitis, Rash. - Medication Reconciliation Form, Thank You Letter, Antibiotic Education, Prescription Opioid Use form. - Follow up: Private Physician; When: 2 - 3 days; Reason: Recheck today's complaints, Continuance of care, Re-evaluation by your physician. Signatures: Dispatcher [employer] Gely Acosta, RN RN Farrukh Gross MD MD [facility] Cesar Milton PA PA jmm Rodriguez, Tommie, RN RN tr5 Corrections: (The following items were deleted from the chart) 16:11 15:53 03/10/2019 15:53 Discharged to Home. Impression: Acute pharyngitis; Rash and tr5 other nonspecific skin eruption. Condition is Stable. Forms are Medication Reconciliation Form, Thank You Letter, Antibiotic Education, Prescription Opioid Use. Follow up: Private Physician; When: 2 - 3 days; Reason: Recheck today's complaints, Continuance of care, Re-evaluation by your physician. huan
[2019-03-10 16:23] VITALS: BP 115/72; TEMP 98.7; O2SAT 99
== END 2019-03-10 16:11 | disposition home or self-care (01) ==
LOC: ER 13:30
DX: J02.9 Acute pharyngitis, unspecified (principal); R21 Rash and other nonspecific skin eruption
CPT/HCPCS: 87070; 87081; 96372; 99283; J1100

== ENCOUNTER 2019-06-11 19:32 | Emergency (ER) | payer OTHER, SELFPAY ==
[2019-06-11 20:21] LABS: Absolute Lymphocytes (CBC) 1.1 K/uL (0.7-4.9); Basophils % 0.2 % (0-1.3); Hematocrit 43.9 % (36.0-45.0); Lymphocytes % 16.1 % (15.3-44.8); MPV 8.3 fL (7.6-11.3); RBC Red Blood Cell Count 4.91 M/uL (3.86-4.86)
[2019-06-11 20:32] LABS: Urine Blood NEGATIVE (NEG); Urine Glucose NEGATIVE (NEG); Urine Protein NEGATIVE (NEG); Urine Specific Gravity 1.025 (1.005-1.030); Urine pH 6.5 (5.0-7.0)
[2019-06-11] MEDS ORDERED: ONDANSETRON 4 MG/2 ML VIAL ONE (20:44)
[2019-06-11] MEDS ORDERED: ACETAMINOPHEN 500 MG TAB ONE (20:44)
[2019-06-11] MEDS ORDERED: NA CHLORIDE 0.9% 1,000 ML ONE (20:44)
[2019-06-11 20:46] LABS: ALT/SGPT 32 U/L (12-78); AST/SGOT 19 U/L (15-37); Albumin 4.1 g/dL (3.4-5.0); Alkaline Phosphatase 89 U/L (45-117); BUN Blood Urea Nitrogen 13 mg/dL (7-18); Bicarbonate 26 mmol/L (21-32); Bilirubin Direct 0.1 mg/dL (0-0.2); Bilirubin Total 0.5 mg/dL (0.2-1.0); Glucose Level 100 mg/dL (74-106); HCG, Quantitative 83 mIU/mL (1-3); Lipase 148 U/L (73-393); Potassium 3.5 mmol/L (3.5-5.1); Protein, Total 8.1 g/dL (6.4-8.2); Sodium Level 135 mmol/L (136-145)
[2019-06-11 21:57] LABS: Urine Bacteria <20 /HPF (<20); Urine RBC NONE SEEN /HPF (NONE SEEN)
[2019-06-11 21:58] LABS: Urine Culture Reflex Order NOT NEEDED
--- NOTE | 2019-06-11 22:04 | EDPHYS ---
Physician Documentation [facility] Name: Talita Hernandez Age: 28 yrs Sex: Female : 1990 Arrival Date: 06/11/2019 Time: 19:38 Bed 27 Private MD: ED Physician Jamie Love HPI: 06/10 19:51 This 28 yrs old Female presents to ER via Ambulatory with complaints of jmm Fever, Nausea. 19:51 Onset: The symptoms/episode began/occurred gradually, 2 day(s) ago. Modifying factors: jmm there are no obvious modifying factors. Associated signs and symptoms: Pertinent positives: Pertinent negatives: cough, earache, runny nose, sinus congestion, sinus drainage, shortness of breath, sore throat. This is a 28 year old female that presents to the ED with complaints of left lower pelvic pain, fever, nausea which began approx 2 days ago. Denies vomiting, diarrhea, sore throat, shortness of breath, cough. Patient denies abnormal vaginal discharge. 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 - Social history:: Smoking status: Patient denies any tobacco usage or history of. ROS: 19:51 Cardiovascular: Negative for chest pain, palpitations, and edema, Respiratory: Negative jmm for shortness of breath, cough, wheezing, and pleuritic chest pain, Back: Negative for injury and pain. 19:51 Constitutional: Positive for fever. 19:51 Abdomen/GI: Positive for abdominal pain, nausea. 19:51 Neuro: Positive for headache. 19:51 All other systems are negative. Exam: 19:51 Constitutional: This is a well developed, well nourished patient who is awake, alert, jmm and in no acute distress. Head/Face: atraumatic. Eyes: EOMI, no conjunctival erythema appreciated ENT: Moist Mucus Membranes Neck: Trachea midline, Supple Chest/axilla: Normal chest wall appearance and motion. 19:51 Cardiovascular: Rate: normal, Rhythm: regular. 19:51 Respiratory: the patient does not display signs of respiratory distress, Respirations: normal, Breath sounds: are clear throughout. 19:51 Abdomen/GI: Inspection: abdomen appears normal, Bowel sounds: normal, Palpation: abdomen is soft and non-tender, in all quadrants, soft. 19:51 Abdomen/GI: Palpation: abdomen is soft and non-tender. 19:51 Back: ROM is normal. 19:51 Back: CVA tenderness, is absent. 19:51 Musculoskeletal/extremity: ROM: intact in all extremities. 19:51 Neuro: Orientation: is normal, Mentation: is normal, Memory: is normal. Vital Signs: 19:49 BP 122 / 73; Pulse 116; Resp 18; Temp 100.3; Pulse Ox 99% on R/A; Weight 64.86 kg; vc Height 5 ft. 6 in. (167.64 cm); 20:04 BP 122 / 93; Pulse 115; Resp 18; Temp 100.3; Pulse Ox 100% ; Weight 64.86 kg; Height 5 jv1 ft. 6 in. (167.64 cm); Pain 8/10; 21:35 BP 110 / 68; Pulse 93; Resp 18; Temp 98; Pulse Ox 100% ; Pain 0/10; jv1 22:16 BP 116 / 70; Pulse 95; Resp 18; Temp 98.5; Pulse Ox 99% ; jv1 20:04 Body Mass Index 23.08 (64.86 kg, 167.64 cm) jv1 MDM: 19:51 Patient medically screened. [facility] 22:00 Data reviewed: vital signs, nurses notes. Counseling: I had a detailed discussion with [facility] the patient and/or guardian regarding: the historical points, exam findings, and any diagnostic results supporting the discharge/admit diagnosis, lab results, radiology results, the need for outpatient follow up, to return to the emergency department if symptoms worsen or persist or if there are any questions or concerns that arise at home. ED course: Patient is alert and non toxic in appearance in the ED. Labs, imaging studies unremarkable. Abdomen is non tender to palpation. I do not suspect acute appendicitis. Patient is advised to follow up with obgyn for reevaluation and otherwise given strict return precautions. Patient understood and agrees with the plan of care. . 06/10 19:54 Order name: Basic Metabolic Panel; Complete Time: 20:52 [facility] 06/10 19:54 Order name: CBC with Diff; Complete Time: 20:36 [facility] 06/10 19:54 Order name: Creatinine for Radiology; Complete Time: 20:52 [facility] 06/10 19:54 Order name: Hepatic Function; Complete Time: 20:52 [facility] 06/10 19:54 Order name: Lipase; Complete Time: 20:52 [facility] 06/10 19:54 Order name: Urine Culture [facility] 06/10 19:54 Order name: Lactate; Complete Time: 20:36 [facility] 06/10 19:54 Order name: Procalcitonin; Complete Time: 20:52 [facility] 06/10 20:17 Order name: Abo/rh Typing; Complete Time: 21:34 [facility] 06/10 20:20 Order name: Urine Dipstick--Ancillary (enter results); Complete Time: 20:36 [facility] 06/10 20:20 Order name: Urine --Ancillary (enter results); Complete Time: 20:36 [facility] 06/10 20:22 Order name: Strep; Complete Time: 21:08 [facility] 06/10 20:22 Order name: Flu; Complete Time: 21:08 [facility] 06/10 19:54 Order name: IV Saline Lock; Complete Time: 20:16 [facility] 06/10 19:54 Order name: Labs collected and sent; Complete Time: 20:16 [facility] 06/10 19:54 Order name: Urine Dipstick-Ancillary (obtain specimen); Complete Time: 20:16 [facility] 06/10 19:54 Order name: Urine Test (obtain specimen); Complete Time: 20:15 [facility] 06/10 20:17 Order name: US Pelvis Complete [facility] 06/10 20:22 Order name: [place] Screen Profile; Complete Time: 20:52 [facility] 06/10 20:27 Order name: HCG, Quantitative; Complete Time: 20:52 [facility] 06/10 21:09 Order name: Throat Culture [facility] 06/10 21:43 Order name: Urine Microscopic Only [facility] Administered Medications: 20:47 Drug: Zofran (Ondansetron) 4 mg Route: IVP; Site: right antecubital; jv1 21:33 Follow up: Response: Nausea is decreased jv1 20:47 Drug: NS 0.9% 1000 ml Route: IV; Rate: 1 bolus; Site: right antecubital; jv1 21:33 Follow up: IV Status: Completed infusion jv1 20:48 Drug: Tylenol 1000 mg Route: PO; jv1 21:05 Follow up: Response: No adverse reaction; Temperature is decreased jv1 21:33 Follow up: Response: No adverse reaction; Temperature is decreased jv1 Disposition: 23:05 Co-signature as Attending Physician, Jamie Love MD. rn Disposition: 06/11/19 22:03 Discharged to Home. Impression: related conditions, unspecified, Nausea, Fever, unspecified. - Condition is Stable. - Discharge Instructions: Abdominal Pain During . - Medication Reconciliation Form, Thank You Letter, Antibiotic Education, Prescription Opioid Use form. - Follow up: Private Physician; When: 1 - 2 days; Reason: Recheck today's complaints, Continuance of care, Re-evaluation by your physician. - Notes: Please follow up with an [employer] INSTALLER in 2 to 3 days for reevaluation. You may take tylenol for fever. Please return to the Emergency Depeartment if you develop -Abdominal pain -Vomiting -Diarrhea -Vaginal bleeding You will need to repeat your ultrasound due to early course of your . Signatures: Dispatcher [employer] [facility] Cesar Milton PA PA [facility] Jamie Love MD MD rn Vicente, Joyce, RN RN jMarcy Carrington RN RN vc Corrections: (The following items were deleted from the chart) 20:27 20:18 QUANTITATIVE HCG+C.LAB.BRZ ordered. [facility] 22:34 22:03 06/11/2019 22:03 Discharged to Home. Impression: related conditions, jv1 unspecified; Nausea; Fever, unspecified. Condition is Stable. Forms are Medication Reconciliation Form, Thank You Letter, Antibiotic Education, Prescription Opioid Use. Follow up: Private Physician; When: 1 - 2 days; Reason: Recheck today's complaints, Continuance of care, Re-evaluation by your physician. javad
--- NOTE | 2019-06-11 22:04 | ER ---
Nurse's Notes [facility] Name: Talita Hernandez Age: 28 yrs Sex: Female : 1990 Arrival Date: 06/11/2019 Time: 19:38 Bed 27 Private MD: Diagnosis: related conditions, unspecified;Nausea;Fever, unspecified Presentation: 06/10 19:49 Chief complaint: Patient states: " I started running a fever of 99.9 and feeling vc nauseous, I am also having abdominal pain in my lower stomach on the left.". Coronavirus screen: Patient denies fever greater than 100.4F, cough, shortness of breath, or difficulty breathing. Proceed with normal triage process. Ebola Screen: No symptoms or risks identified at this time. Initial Sepsis Screen: Does the patient meet any 2 criteria? HR > 90 bpm. Does the patient have a suspected source of infection? No. Patient's initial sepsis screen is negative. Risk Assessment: Do you want to hurt yourself or someone else? Patient reports no desire to harm self or others. 19:49 Method Of Arrival: Ambulatory vc 19:49 Acuity: MILAGROS 4 vc 20:03 Onset of symptoms was June 11, 2019. jv1 Triage Assessment: 19:58 General: Appears in no apparent distress. well groomed, Behavior is calm, cooperative. jv1 GI: Abdomen is round non-distended, Bowel sounds present X 4 quads. Abd is soft Abdomen is tender to palpation in left lower quadrant Reports lower abdominal pain, nausea. 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 - Social history:: Smoking status: Patient denies any tobacco usage or history of. Screenin:57 Abuse screen: Denies threats or abuse. Nutritional screening: No deficits noted. jv1 Tuberculosis screening: No symptoms or risk factors identified. Fall Risk None identified. Assessment: 19:59 General: Appears in no apparent distress. well groomed, Behavior is calm, cooperative, jv1 appropriate for age. Pain: Complains of pain in left lower quadrant Pain does not radiate. Pain currently is 8 out of 10 on a pain scale. Quality of pain is described as aching, Pain began this morning. Neuro: Level of Consciousness is awake, alert, obeys commands, Oriented to person, place, time, situation, Information Systems Director are equal bilaterally Moves all extremities. Cardiovascular: Denies chest pain. Respiratory: Breath sounds are clear bilaterally. GI: Abdomen is round non-distended, Bowel sounds present X 4 quads. Abd is soft Abdomen is tender to palpation in left lower quadrant. : Denies burning with urination. EENT: No signs and/or symptoms were reported regarding the EENT system. Derm: Skin is intact, is healthy with good turgor, Skin is pink, warm \\T\\ dry. Musculoskeletal: No signs and/or symptoms reported regarding the musculoskeletal system. 20:59 Reassessment: Patient appears in no apparent distress at this time. No changes from jv1 previously documented assessment. Patient and/or family updated on plan of care and expected duration. Pain level reassessed. Patient is alert, oriented x 3, equal unlabored respirations, skin warm/dry/pink. Patient states feeling better. Patient states symptoms have improved. 21:35 Reassessment: Patient appears in no apparent distress at this time. No changes from jv1 previously documented assessment. Patient and/or family updated on plan of care and expected duration. Pain level reassessed. Patient is alert, oriented x 3, equal unlabored respirations, skin warm/dry/pink. Patient denies pain at this time. Patient states feeling better. Patient states symptoms have improved. provider in the room with pt. 22:16 Reassessment: Patient appears in no apparent distress at this time. No changes from jv1 previously documented assessment. Patient and/or family updated on plan of care and expected duration. Pain level reassessed. Patient is alert, oriented x 3, equal unlabored respirations, skin warm/dry/pink. Patient denies pain at this time. Vital Signs: 19:49 BP 122 / 73; Pulse 116; Resp 18; Temp 100.3; Pulse Ox 99% on R/A; Weight 64.86 kg; vc Height 5 ft. 6 in. (167.64 cm); 20:04 BP 122 / 93; Pulse 115; Resp 18; Temp 100.3; Pulse Ox 100% ; Weight 64.86 kg; Height 5 jv1 ft. 6 in. (167.64 cm); Pain 8/10; 21:35 BP 110 / 68; Pulse 93; Resp 18; Temp 98; Pulse Ox 100% ; Pain 0/10; jv1 22:16 BP 116 / 70; Pulse 95; Resp 18; Temp 98.5; Pulse Ox 99% ; jv1 20:04 Body Mass Index 23.08 (64.86 kg, 167.64 cm) jv1 ED Course: 19:38 Patient arrived in ED. ag3 19:49 Marcy Marie, KINSEY is Primary Nurse. vc 19:50 Cesar Milton PA is PHCP. jmm 19:50 Jamie Love MD is Attending Physician. jm 19:52 Triage completed. vc 19:59 Patient has correct armband on for positive identification. Bed in low position. Call jv1 light in reach. Side rails up X 1. 20:03 Arm band placed on right wrist. Patient placed in an exam room, Patient notified of jv1 wait time. 20:09 Initial lab(s) drawn, by nj, sent to lab. Urine collected:. Inserted saline lock: 20 jp3 gauge in right antecubital area, using aseptic technique. Blood collected. 20:09 Patient maintains SpO2 saturation greater than 95% on room air. jp3 21:56 US Pelvis Complete In Process Unspecified. EDMS 22:31 No provider procedures requiring assistance completed. jv1 22:33 IV discontinued, intact, bleeding controlled, No redness/swelling at site. Pressure jv1 dressing applied. Administered Medications: 20:47 Drug: Zofran (Ondansetron) 4 mg Route: IVP; Site: right antecubital; jv1 21:33 Follow up: Response: Nausea is decreased jv1 20:47 Drug: NS 0.9% 1000 ml Route: IV; Rate: 1 bolus; Site: right antecubital; jv1 21:33 Follow up: IV Status: Completed infusion jv1 20:48 Drug: Tylenol 1000 mg Route: PO; jv1 21:05 Follow up: Response: No adverse reaction; Temperature is decreased jv1 21:33 Follow up: Response: No adverse reaction; Temperature is decreased jv1 Outcome: 22:03 Discharge ordered by . jmm 22:31 Discharged to home ambulatory. jv1 22:31 Condition: good 22:31 Discharge instructions given to patient, Instructed on discharge instructions, follow up and referral plans. medication usage, Demonstrated understanding of instructions, follow-up care, medications. 22:34 Patient left the ED. jv1 Signatures: Dispatcher [employer] EDMS Cesar Milton PA PA jmm Pisarski, Jacob jp3 Ne Martinez RN RN jv1 Cyn Vazquez ag3 Marcy Marie RN RN vc
[2019-06-11 22:50] VITALS: BP 116/70; TEMP 98.5; O2SAT 99
--- NOTE | 2019-06-12 07:24 | RAD REPORT ---
EXAM DESCRIPTION: US - Pelvis Complete - 06/11/2019 9:55 pm CLINICAL HISTORY: left sided pelvic pain, fever COMPARISON: No comparisons TECHNIQUE: Endovaginal sonography was performed. FINDINGS: Preliminary findings were provided the time of the study. Uterus is retroflexed, normal in size and without abnormal myometrial mass lesion. Endometrial stripe is 10 mm with no focal endometrial mass or polyp identifiable. Physiologic quantity of free fluid is present in the cul de sac. No evidence for hemorrhage. Prominen t but otherwise unremarkable veins are seen adjacent to the uterus. These are more so to the left. Th rombus is not identified. A 3.8 centimeter thin-walled anechoic right ovarian cyst is present. Normal blood flow was seen in th e ovarian stroma adjacent to the cyst. Normal size left ovary is seen with normal blood flow. No left adnexal mass. IMPRESSION: No endometrial or myometrial abnormality within a normal sized uterus. No left ovarian or left adnexal abnormality seen. Patient has prominent veins adjacent to the uterus, more so to the left, without thrombus identifiable. A 3.8 centimeter thin-walled anechoic right ovarian cyst is present.
== END 2019-06-11 22:34 | disposition home or self-care (01) ==
LOC: ER 19:32
DX: Z33.1 Pregnant state, incidental (principal); R50.9 Fever, unspecified
CPT/HCPCS: 36415; 76856; 80048; 80076; 81003; 81015; 81025; 83605; 83690; 84145; 84702; 85025; 86308; 86900; 86901; 87070; 87081; 87086; 87088; 87804; 96361; 96374; 99284; J2405; J7030

== ENCOUNTER 2019-08-31 19:56 | Emergency (ER) | payer OTHER ==
[2019-08-31 22:09] LABS: Urine Blood NEGATIVE (NEG); Urine Glucose NEGATIVE (NEG); Urine Protein NEGATIVE (NEG); Urine Specific Gravity >1.030 (1.005-1.030)
[2019-08-31 22:09] LABS: Basophils % 0.4 % (0-1.3); Hematocrit 33.9 % (36.0-45.0); Lymphocytes % 40.1 % (15.3-44.8); MPV 9.2 fL (7.6-11.3); RBC Red Blood Cell Count 3.67 M/uL (3.86-4.86)
[2019-08-31 22:42] LABS: BUN Blood Urea Nitrogen 13 mg/dL (7-18); Bicarbonate 24 mmol/L (21-32); Glucose Level 75 mg/dL (74-106); HCG, Quantitative 17449 mIU/mL (1-3); Potassium 3.6 mmol/L (3.5-5.1); Sodium Level 136 mmol/L (136-145)
--- NOTE | 2019-09-01 01:52 | ER ---
Nurse's Notes [facility] Name: Talita Hernandez Age: 28 yrs Sex: Female : 1990 Arrival Date: 08/31/2019 Time: 20:00 Bed 16 Private MD: Diagnosis: Threatened Presentation: 08/30 20:09 Chief complaint: Patient states: "I am currently 15 weeks and I started to jd3 notice some spotting that has been getting heavier throughout the day. I also have been having slight cramping.". Coronavirus screen: Proceed with normal triage. Ebola Screen: Patient negative for fever greater than or equal to 101.5 degrees Fahrenheit, and additional compatible Ebola Virus Disease symptoms. Initial Sepsis Screen: Does the patient meet any 2 criteria? No. Patient's initial sepsis screen is negative. Does the patient have a suspected source of infection? No. Patient's initial sepsis screen is negative. Risk Assessment: Do you want to hurt yourself or someone else? Patient reports no desire to harm self or others. Onset of symptoms was August 31, 2019. 20:09 Method Of Arrival: Ambulatory jd3 20:09 Acuity: MILAGROS 3 jd3 Triage Assessment: 22:00 General: Appears in no apparent distress. comfortable, Behavior is calm, cooperative. ls4 Pain: Denies pain. Neuro: No deficits noted. Cardiovascular: No deficits noted. Respiratory: Airway is patent Respiratory effort is even, unlabored, Respiratory pattern is regular. GI: No deficits noted. No signs and/or symptoms were reported involving the gastrointestinal system. : Reports vaginal bleeding that is spotty. Derm: Skin is pink, warm \\T\\ dry. Musculoskeletal: No deficits noted. No signs and/or symptoms reported regarding the musculoskeletal system. 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 - Social history:: Smoking status: Patient denies any tobacco usage or history of. Screenin:59 Abuse screen: Denies threats or abuse. Denies injuries from another. Nutritional ls4 screening: No deficits noted. Tuberculosis screening: No symptoms or risk factors identified. Fall Risk None identified. Assessment: 22:01 General: Appears in no apparent distress. comfortable. : Reports vaginal bleeding ls4 that is spotty. Vital Signs: 20:11 BP 113 / 66; Pulse 72; Resp 16 S; Temp 98.9(TE); Pulse Ox 100% on R/A; Weight 69.4 kg jd3 (R); Height 5 ft. 6 in. (167.64 cm) (R); Pain 5/10; 22:00 BP 114 / 66; Pulse 71; Resp 18; Pulse Ox 99% on R/A; Pain 0/10; ls4 08/31 00:00 BP 116 / 60; Pulse 70; Resp 16; Pulse Ox 99% on R/A; Pain 0/10; ls4 00:00 BP 118 / 74; Pulse 72; Resp 18; Pulse Ox 99% on R/A; ls4 01:00 BP 116 / 80; Pulse 70; Resp 17; Pulse Ox 100% on R/A; ls4 02:14 BP 113 / 70; Pulse 70; Resp 18; Pulse Ox 99% ; Pain 0/10; ls4 06 20:11 Body Mass Index 24.69 (69.40 kg, 167.64 cm) jd3 ED Course: 08/30 20:00 Patient arrived in ED. es 20:10 Triage completed. jd3 20:12 Arm band placed on. jd3 20:52 Pernell Park MD is Attending Physician. tw4 21:06 Jessica Macias, RN is Primary Nurse. ls4 21:58 No apparent distress. ls4 21:58 US OB Limited Sent. ls4 21:58 No provider procedures requiring assistance completed. Initial lab(s) drawn, by nj, ls4 sent to lab. Inserted saline lock: 18 gauge in left antecubital area, using aseptic technique. Blood collected. 21:59 Patient has correct armband on for positive identification. Bed in low position. Call ls4 light in reach. Side rails up X 1. Pulse ox on. NIBP on. Verbal reassurance given. 22:00 US OB Limited In Process Unspecified. EDMS 08/31 01:51 Rhogam Sent. ls4 01:57 IV discontinued, intact, bleeding controlled, No redness/swelling at site. Pressure ls4 dressing applied. Administered Medications: 01:51 Drug: RhoGAM (Human) 300 mcg Route: IM; Site: left deltoid; ls4 02:11 Follow up: Response: No adverse reaction; Marked relief of symptoms ls4 Outcome: 01:51 Discharge ordered by . tw4 01:56 Discharged to home ambulatory, with family. ls4 01:56 Condition: good 01:56 Discharge instructions given to patient, family, Instructed on discharge instructions, follow up and referral plans. medication usage, safety practices, Demonstrated understanding of instructions, follow-up care, medications, Prescriptions given X 02:15 Patient left the ED. ls4 Signatures: Dispatcher [employer] Belia Whitfield Jonathon RN RN Pernell Sanches MD MD tw4 Jessica Macias RN RN ls4
--- NOTE | 2019-09-01 01:52 | EDPHYS ---
Physician Documentation [facility] Name: Talita Hernandez Age: 28 yrs Sex: Female : 1990 Arrival Date: 08/31/2019 Time: 20:00 Bed 16 Private MD: ED Physician Pernell Park HPI: 08/31 05:43 This 28 yrs old Female presents to ER via Ambulatory with complaints of tw4 Vaginal Bleeding, + 15 weeks preg. 05:43 The patient presents with vaginal bleeding that is. Onset: The symptoms/episode tw4 began/occurred yesterday. Modifying factors: The symptoms are alleviated by nothing, the symptoms are aggravated by nothing. Associated signs and symptoms: Pertinent positives: cramping. Severity of symptoms: At their worst the symptoms were mild, in the emergency department the symptoms have resolved. The patient has not experienced similar symptoms in the past. 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 - Social history:: Smoking status: Patient denies any tobacco usage or history of. ROS: 08/31 05:43 Positive for vaginal bleeding, Negative for injury or acute deformity, urinary tw4 symptoms, urinary frequency, hematuria, pelvic pain. Constitutional: Negative for fever, chills, and weight loss, Eyes: Negative for injury, pain, redness, and discharge, Cardiovascular: Negative for chest pain, palpitations, and edema, Respiratory: Negative for shortness of breath, cough, wheezing, and pleuritic chest pain, Abdomen/GI: Negative for abdominal pain, nausea, vomiting, diarrhea, and constipation. Back: Negative for injury and pain, MS/Extremity: Negative for injury and deformity, Skin: Negative for injury, rash, and discoloration, Neuro: Negative for headache, weakness, numbness, tingling, and seizure. : Positive for vaginal bleeding. Exam: 05:43 Constitutional: This is a well developed, well nourished patient who is awake, alert, tw4 and in no acute distress. Head/Face: Normocephalic, atraumatic. Chest/axilla: Normal chest wall appearance and motion. Nontender with no deformity. No lesions are appreciated. Cardiovascular: Regular rate and rhythm with a normal S1 and S2. No gallops, murmurs, or rubs. Normal PMI, no JVD. No pulse deficits. Respiratory: Lungs have equal breath sounds bilaterally, clear to auscultation and percussion. No rales, rhonchi or wheezes noted. No increased work of breathing, no retractions or nasal flaring. Abdomen/GI: Soft, non-tender, with normal bowel sounds. No distension or tympany. No guarding or rebound. No evidence of tenderness throughout. Back: No spinal tenderness. No costovertebral tenderness. Full range of motion. MS/ Extremity: Pulses equal, no cyanosis. Neurovascular intact. Full, normal range of motion. Neuro: Awake and alert, GCS 15, oriented to person, place, time, and situation. Cranial nerves II-XII grossly intact. Motor strength 5/5 in all extremities. Sensory grossly intact. Cerebellar exam normal. Normal gait. 05:43 : Pelvic Exam: The exam is refused by the patient/guardian. The risks and consequences are understood by the patient. Vital Signs: 08/30 20:11 BP 113 / 66; Pulse 72; Resp 16 S; Temp 98.9(TE); Pulse Ox 100% on R/A; Weight 69.4 kg jd3 (R); Height 5 ft. 6 in. (167.64 cm) (R); Pain 5/10; 22:00 BP 114 / 66; Pulse 71; Resp 18; Pulse Ox 99% on R/A; Pain 0/10; ls4 08/31 00:00 BP 116 / 60; Pulse 70; Resp 16; Pulse Ox 99% on R/A; Pain 0/10; ls4 00:00 BP 118 / 74; Pulse 72; Resp 18; Pulse Ox 99% on R/A; ls4 01:00 BP 116 / 80; Pulse 70; Resp 17; Pulse Ox 100% on R/A; ls4 02:14 BP 113 / 70; Pulse 70; Resp 18; Pulse Ox 99% ; Pain 0/10; ls4 06/18 20:11 Body Mass Index 24.69 (69.40 kg, 167.64 cm) jd3 MDM: 08/30 21:12 Patient medically screened. 08/31 05:43 Differential diagnosis: abruptio placentae, ectopic , threatened Ab, tw4 inevitable Ab, placenta previa. Data reviewed: vital signs, nurses notes. Data interpreted: Pulse oximetry: Interpretation: normal. Counseling: I had a detailed discussion with the patient and/or guardian regarding: the historical points, exam findings, and any diagnostic results supporting the discharge/admit diagnosis, lab results, radiology results. ED course: ultrasound reveals 16 week IUP positive FHT. 05:46 Data reviewed: lab test result(s), CBC, electrolytes, urinalysis, radiologic studies, ultrasound. Special discussion: I discussed with the patient/guardian in detail that at this point there is no indication for admission to the hospital. It is understood, however, that if the symptoms persist or worsen the patient needs to return immediately for re-evaluation. 08/30 20:17 Order name: Abo/rh Typing; Complete Time: 01:11 08/30 20:17 Order name: Basic Metabolic Panel; Complete Time: 23:00 [facility] 08/30 23:00 Interpretation: CRE 0.49. 08/30 20:17 Order name: CBC with Diff; Complete Time: 23:00 [facility] 08/30 23:00 Interpretation: Normal except: RBC 3.67; HGB 11.8; HCT 33.9. 08/30 20:17 Order name: HCG-Quantitative; Complete Time: 23:00 [facility] 08/30 23:01 Interpretation: Within normal limits: HCGQ 79416. 08/30 22:07 Order name: Urine Dipstick--Ancillary (enter results); Complete Time: 23:00 [facility] 08/30 22:07 Order name: Urine --Ancillary (enter results); Complete Time: 23:00 [facility] 08/30 23:01 Interpretation: Normal except: URINE PREG POS; USPGR >1.030. 08/30 20:17 Order name: IV Saline Lock; Complete Time: 21:58 [facility] 08/30 20:52 Order name: US OB Limited [facility] 08/30 23:16 Order name: Rhogam 08/30 23:16 Order name: Rh Typing [facility] 08/30 23:16 Order name: Antibody Screen [facility]IL 08/30 23:16 Order name: Fetalscreen [facility] 08/30 23:16 Order name: Cord Rh type [facility] 08/30 20:17 Order name: Labs collected and sent; Complete Time: 21:58 tw4 08/30 20:17 Order name: NPO; Complete Time: 21:58 tw4 08/30 20:17 Order name: Urine Dipstick-Ancillary (obtain specimen); Complete Time: 21:58 tw4 08/30 20:17 Order name: Urine Test (obtain specimen); Complete Time: 21:58 tw4 Administered Medications: 01:51 Drug: RhoGAM (Human) 300 mcg Route: IM; Site: left deltoid; ls4 02:11 Follow up: Response: No adverse reaction; Marked relief of symptoms ls4 Disposition: 09/01/19 01:51 Discharged to Home. Impression: Threatened . - Condition is Stable. - Discharge Instructions: Threatened Miscarriage, Vaginal Bleeding During , Second Trimester. - Medication Reconciliation Form, Thank You Letter, Antibiotic Education, Prescription Opioid Use form. - Follow up: Private Physician; When: Upon discharge from the Emergency Department; Reason: Recheck today's complaints, Continuance of care, Re-evaluation by your physician. - Problem is new. - Symptoms have improved. Signatures: Dispatcher [employer] [facility] Jose Weber PA PA jr8 Sam Eaton RN RN jd3 Pernell Park MD MD tw4 Jessica Macias RN RN ls4 Corrections: (The following items were deleted from the chart) 02:15 01:51 09/01/2019 01:51 Discharged to Home. Impression: Threatened . Condition ls4 is Stable. Forms are Medication Reconciliation Form, Thank You Letter, Antibiotic Education, Prescription Opioid Use. Follow up: Private Physician; When: Upon discharge from the Emergency Department; Reason: Recheck today's complaints, Continuance of care, Re-evaluation by your physician. Problem is new. Symptoms have improved. tw4
[2019-09-01 02:20] VITALS: TEMP 98.9
[2019-09-01 02:55] VITALS: BP 113/70; O2SAT 99
--- NOTE | 2019-09-01 07:29 | RAD REPORT ---
EXAM DESCRIPTION: US - OB Limited - 08/31/2019 10:00 pm CLINICAL HISTORY: VAGINAL BLEEDING, Preliminary findings were provided at the time of the study. COMPARISON: No comparisons TECHNIQUE: Limited transabdominal OB sonography performed FINDINGS: Single intrauterine gestation identified. Heart rate is 151 BPM average. Cervical canal me asures 2.83 cm. Internal os is closed. BPD, head circumference and femur length measurements were obtained. Gross anatomical assessment is u nremarkable. Anatomic assessment is limited. Estimated gestational age is 15 weeks 6 days. Calculated MAYA is 02/16/2020. Grade 0 right lateral placenta is identified. No abruption, marginal hematoma or placental abnormalit y seen. Amniotic fluid volume is normal. IMPRESSION: Limited OB sonography shows a single 15 week 6 day IUP. Calculated MAYA is 02/16/2020. Heart rate is normal. Limited assessment shows no gross anatomic abnormality. Placenta is unremarkable. Amniotic fluid volume is normal. No cervical canal abnormality seen.
== END 2019-09-01 02:15 | disposition home or self-care (01) ==
LOC: ER 19:56
PROC: 3E0234Z Introduction of Serum, Toxoid and Vaccine into Muscle, Percutaneous Approach (ICD-10-PCS; principal; 2019-09-01)
DX: O20.0 Threatened abortion (principal); Z3A.15 15 weeks gestation of pregnancy
CPT/HCPCS: 36415; 76815; 80048; 81003; 81025; 84702; 85025; 85461; 86850; 86900; 86901; 96372; 99284

== ENCOUNTER 2021-02-17 09:38 | Inpatient (IN) | payer OTHER ==
[2021-02-17] MEDS ORDERED: PROMETHAZINE INJ 25 MG/ML AMP IM PRN (09:54)
[2021-02-17] MEDS ORDERED: CARBOPROST TROME 250 MCG/ML IM PRN (09:54)
[2021-02-17] MEDS ORDERED: MAGNES/ALUMIN/SIMET 30ML UCUP PO PRN (09:54)
[2021-02-17] MEDS ORDERED: Ringers Lactate 1,000 ML IV PRN (09:54)
[2021-02-17] MEDS ORDERED: METHYLERGONOVINE 0.2MG/ML AMP IM PRN (09:54)
[2021-02-17] MEDS ORDERED: BUTORPHANOL 1 MG/ML INJ IV PRN (09:54)
[2021-02-17] MEDS ORDERED: LIDOCAINE 1% MPF 30 ML VIAL SQ ONE (09:59)
[2021-02-17] MEDS ORDERED: Ringers Lactate 1,000 ML IV SCH (10:00)
[2021-02-17] MEDS ORDERED: ROPIVACAINE HCL 0.2% 20ML AMP IV ONE (10:00)
[2021-02-17] MEDS ORDERED: OXYTOCIN/LR 20 UNIT/1,000 ML BAG IV SCH ×2 (10:00→14:00)
[2021-02-17] MEDS ORDERED: FENTANYL CITR 100 MCG/2 ML IV ONE (10:00)
[2021-02-17] MEDS ORDERED: 0.2% ROPIVACAINE (200 MG/100 ML) BAG EP ONE (10:01)
[2021-02-17 11:12] LABS: Urine Appearance CLEAR (Clear); Urine Bilirubin NEGATIVE (Negative); Urine Blood 2+ (Negative); Urine Color YELLOW (Yellow); Urine Glucose NEGATIVE (Negative); Urine Microscopic Reflex ORDER UMIC; Urine Protein NEGATIVE (Negative); Urine Specific Gravity 1.025 (1.005-1.030); Urine pH 6.5 (5.0-7.0)
[2021-02-17 11:17] LABS: Absolute Lymphocytes (CBC) 3.1 K/uL (0.7-4.9); Basophils % 0.2 % (0-1.3); Hematocrit 37.2 % (36.0-45.0); Lymphocytes % 26.7 % (15.3-44.8); MPV 8.8 fL (7.6-11.3); RBC Red Blood Cell Count 4.39 M/uL (3.86-4.86)
[2021-02-17 12:06] LABS: Urine Bacteria 20-50 /HPF (<20); Urine RBC <5 /HPF (NONE SEEN)
--- NOTE | 2021-02-17 12:06 | PREOPHP ---
Date of Admission: 02/17/2021 History: A 30-year-old 4, para 2, 1 miscarriage at 37 weeks and 2 days. She noted to be pro gressively dilating. Last time I checked her in the office, she was 5. She came to Labor and delive duc, yesterday was 6. Today in the office she was 7.5 to 8 cm, mohamud irregularly, sent to Labor and Delivery. She is now 8.5 cm. Rupture of membranes, clear fluid. She has had Celestone during the as her second ended at 36 weeks. Therefore, we gave her Celestone during thi s , which I think was a gross precaution. Family History: Father with hypertension. Mother with diabetes. A grandmother on the mother's side with breast cancer. Physical Examination: HEENT: Clear. Pupils equal, round, reactive to light and accommodation. Conjunctivae well perfused . No oral, lingual, or buccal lesions. Chest/Lung: Clear. Heart: Without murmurs, thrills, heaves, or rubs. Breasts: Without masses on previous visits. Abdomen: Term size. Baby is vertex, almost -1 to 0 station, basically 90% to 100% effaced. Extremities: Clear without edema, cyanosis, or clubbing. Assessment And Plan: Anticipate relatively rapid labor once the contractions gain intensity. They a re very regular at this point. She is Rh negative, has received RhoGAM during . Strep nega tive, immune to Rubella. Full labor talk given. CLIFTON/ELBA Voice ID: [id number]
[2021-02-17 12:27] VITALS: BMI 31.9
[2021-02-17] MEDS ORDERED: BISACODYL 10 MG RECTAL SUPP PR PRN (13:32)
[2021-02-17] MEDS ORDERED: ACETAMINOPHEN 500 MG TAB PO PRN (13:32)
[2021-02-17] MEDS ORDERED: IBUPROFEN 200 MG TAB PO PRN (13:32)
[2021-02-17] MEDS ORDERED: DOCUSATE NA/SENNA CONC 1 TAB PO PRN (13:32)
[2021-02-17] MEDS ORDERED: DIPHENHYDRAMINE 25 MG TAB/CAP PO PRN (13:32)
[2021-02-17] MEDS ORDERED: Oxycodone HCl/Acetaminophen 1 TAB TAB PO PRN (13:32)
--- NOTE | 2021-02-17 13:57 | OP ---
Surgeon: Puma Seals MD Talita Ayers is a 30-year-old 4, para 2, 37 weeks and 2 days. History of premature labor and delivery. Last had Celestone. This , came into my office, noted to be 7.5 t o 8 cm, 90% effaced, 0, at a -1 station, mohamud irregularly. Sent to Labor and Delivery. Start ed on augmentation. Had epidural anesthesia performed. Second stage of basically one push spontaneo us vaginal delivery of a 6-pound 15-ounce male infant. Hand beside the head at time of delivery. Ap gars 9 and 9. Very small first-degree laceration, repaired with 2-0 chromic. Bird delivery of th e placenta. Was inspected and noted be intact and normal. 250 cc or less blood loss. The patient i s Rh negative. Has received RhoGAM during . Will be qualified for RhoGAM again. Strep neg ative. Rubella immune. The patient tolerated all procedures well. Final Diagnoses: Term intrauterine at 37 weeks 2 days, vaginal delivery, epidural anesthes ia. MARYC/MODL Voice ID: [id number] Report ID: [id number]
[2021-02-17] MEDS ORDERED: INFLUENZA VACCINE (for 6+ mo) 0.5 ML DOSE IMVAC ONE (14:00)
[2021-02-17] MEDS ORDERED: ONDANSETRON 4 MG/2 ML VIAL IV ONE (16:36)
[2021-02-17] MEDS ORDERED: Rho(D) IG (HUMAN) 300 MCG SYR IM ONE (17:30)
[2021-02-17] MEDS: Oxycodone HCl/Acetaminophen 1 TAB TAB PO PRN (23:03)
[2021-02-17 23:33] LABS: RPR (Rapid Plasma Reagin) NON-REACT (NON-REACT)
[2021-02-18] MEDS: Oxycodone HCl/Acetaminophen 1 TAB TAB PO PRN (04:24)
--- NOTE | 2021-02-18 07:45 | DS ---
30-year-old female, 4, para 3, 37 weeks and 2 days, history of premature labor, last one at 3 6 weeks, was given Celestone during the in anticipation of a possible early delivery. Rh n egative. Received RhoGAM during the and has received RhoGAM in the period. See n in my office, noted to be 8 cm, sent to labor and delivery. IV was started, light Pitocin. Ruptur e of membranes. Epidural was also started at the patient's request. She went rapidly to complete. Second stage consisted of basically 1 strenuous push. She delivered a 6-pound 15-ounce male infant, Apgars 9 and 9. Very small first-degree laceration, sutured with 2-0 chromic. The baby was noted to have the hand beside the head at time of delivery making the presenting part a little bit wider than normal. Rubella immune. Strep negative. , afebrile, ambulating, voiding. No complaints or problems. Will be dismissed later today after the baby is dismissed. To return back to my offic e in 6 weeks for followup. To report any temperature elevation of 100 degrees or greater, severe isabel n, heavy bleeding, or any other type of abnormalities. Final Diagnoses: Intrauterine gestation, 37 weeks 2 days, vaginal delivery, epidural anesthesia. Rh oGAM administered. Immunizations discussed and offered. CLIFTON/ELBA Voice ID: [id number] Report ID: [id number]
--- NOTE | 2021-02-18 10:18 | PN ---
The patient has her epidural. She can barely feel anything. They may have to turn the maintenance d ose down Her contractions have spaced since the epidural. We will go back up with the Pit ocin. She is still 8.5 cm, clear fluid. Baby looks good, but hopefully, the epidural will not slow down her progress. CLIFTON/ELBA Voice ID: [id number] Report ID: [id number]
[2021-02-18] MEDS: IBUPROFEN 600 MG TAB PO PRN ×2 (15:52→23:47)
[2021-02-19 04:14] VITALS: BP 106/62; TEMP 97.8
[2021-02-19] MEDS ORDERED: INFLUENZA VACCINE (for 6+ mo) 0.5 ML DOSE IMVAC ONE ×2 (06:28→08:00)
--- NOTE | 2021-02-19 11:23 | PN ---
The patient stayed overnight in hotel situation because baby's bilirubin was high. As soon as the ba by is dismissed, the patient will go home. CLIFTON/ELBA Voice ID: [id number] Report ID: [id number]
[2021-02-20 03:52] LABS: HBsAG Nonreactive (Nonreactive)
== END 2021-02-19 07:39 | disposition home or self-care (01) | DRG 807 ==
LOC: 2ND-WC 09:38
PROVIDERS: ADMIT Specialist; ATTEND Specialist
PROC: 10E0XZZ Delivery of Products of Conception, External Approach (ICD-10-PCS; principal; 2021-02-17)
PROC: 0HQ9XZZ Repair Perineum Skin, External Approach (ICD-10-PCS; 2021-02-17)
PROC: 3E0234Z Introduction of Serum, Toxoid and Vaccine into Muscle, Percutaneous Approach (ICD-10-PCS; 2021-02-17)
DX: O70.0 First degree perineal laceration during delivery (principal); Z37.0 Single live birth; O26.893 Other specified pregnancy related conditions, third trimester; Z67.41 Type O blood, Rh negative; Z3A.37 37 weeks gestation of pregnancy; Z20.822 Contact with and (suspected) exposure to COVID-19; Z23 Encounter for immunization
CPT/HCPCS: 36415; 81003; 81015; 85025; 85461; 86592; 86850; 86901; 87086; 87088; 87340; 90471; 99218; J2210; J2405; J2590; J2790; J2795; J3010; J7120; Q2035; U0003

== ENCOUNTER 2023-01-04 21:00 | Emergency (ER) | payer OTHER ==
--- OUTSIDE RECORDS SUMMARY | 2023-01-04 21:05 | XMS REPORT | Continuity of Care Document ---
:1990 Author Organization [facility] t Address [address] [place] [address] Care Team Providers Name Role Phone PCP, PATIENT DOES NOT HAVE A Primary Care Physician Unavaila KATHERIN Ruff Attending Clinician Unavailable KATHERIN PENA Attending Clinician Unavailable Doctor Unassigned, [place] Attending Clinician Unavailable Pob, [facility] Main Attending Clinician Unavailable JOYCE BHATT Attending Clinician Unavailable JOYCE BHATT Attending Clinician Unavailable Ultrasound, Ang-Mfm Attending Clinician Unavailable Joyce Bhatt MD Attending Clinician Joyce Crews RN Attending Clinician Unavailable ANN DAS Attending Clinician Unavailable Ann Das DO Attending Clinician Payers Payer Name Policy Type Policy Number Effective Date Expiration Date [facility] [id number] 2022 [facility] [place] STAR 00:00:00 Problems Condition Condition Condition Status Onset Resolution Last Treating Co mments Source Name Details Category Date Date Treatment Clinician Date Rubella Rubella Disease Active Univers non-immune non-immune 8-18 it y of status, status, 00:00: [place] antepartum antepartum 00 Me dical Branch Rh Rh Disease Active Univers negative negative 7-20 ity of state in state in 00:00: [place] antepartum antepartum 00 Me dical period period Branch High-risk High-risk Disease Active Uni vers 5-19 ity of in first in first 00:00: [place] trimester trimester 00 Medi avinash Branch Anxiety Anxiety Disease Active Univers disorder disorder 07-31 [place] of affecting affecting [place] , , [place] antepartum antepartum Br anch Rubella Rubella Disease Active Univers immune immune 07-22 ity of 00:00: [place] 00 Medical Branch Encounter Encounter Disease Active Overview: Univers for for 07-21 Formattin ity of routine routine 00:00: g of this [place] gynecologi gynecologi 00 note Me dical avinash avinash might be Branch examinatio examinatio different n n from the original. 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 [employer] Allergies, Adverse Reactions, Alerts Allergy Allergy Status Severity Reaction(s) Onset Inactive Treating Comm ents Source Name Type Date Date Clinician NO KNOWN Drug Active Univers ALLERGIE Class ity of S [facility] Social History Social Habit Start Date Stop Date Quantity Comments Source ASSERTION 2022-06-16 University 00:00:00 [facility] Gender identity Universit y of [facility] Sexual orientation Univer sit of [facility] History of Social 2022-12-25 2022-12-25 Univers ity of function 00:00:00 00:00:00 [facility] Alcohol intake 2022-12-25 2022-12-25 Ex-drinker University 00:00:00 00:00:00 (finding) [facility] Exposure to 2022-08-16 2022-08-26 Not sure [facility] SARS-CoV-2 (event) 00:00:00 11:37:00 [facility] Tobacco use and 2022-07-31 2022-07-31 Smokeless Universit y of exposure 00:00:00 00:00:[address] tobacco non-user [facility] History of tobacco 2012-05-13 Cigarette Smoker University of use 00:00:00 [facility] Sex Ass[birth year] At [birth year] Universit y of 00:00:00 00:00:00 [facility] Smoking Status Start Date Stop Date Source Never smoked tobacco [facility] Ex-smoker 2012-07-21 00:00:00 2012-07-21 00:00:00 [facility] Medications Ordered Filled Start Stop Current Ordering Indication Dosage Frequency Signature Comments Components Source Medication Medication Date Date Medication? Clinician (SIG) Name Name Yes Take by [employer] VITS 9-15 mouth. ity of W-CA,FE,FA, 13:20: [place] <1MG, 52 Medical ( Branch VITAMIN ORAL) Yes Take by [employer] VITS 9-15 mouth. ity of W-CA,FE,FA, 13:20: [place] <1MG, 52 Medical ( Branch VITAMIN ORAL) Yes Take by Univer s VITS 9-15 mouth. ity of W-CA,FE,FA, 13:20: [place] <1MG, 52 Medical ( Branch VITAMIN ORAL) Yes Take by [employer] VITS 9-15 mouth. ity of W-CA,FE,FA, 13:20: [place] <1MG, 52 Medical ( Branch VITAMIN ORAL) Yes Take by [employer] VITS 9-15 mouth. ity of W-CA,FE,FA, 13:20: [place] <1MG, 52 Medical ( Branch VITAMIN ORAL) Yes Take by [employer] VITS 9-15 mouth. ity of W-CA,FE,FA, 13:20: [place] <1MG, 52 Medical ( Branch VITAMIN ORAL) Yes Take by [employer] VITS 9-15 mouth. ity of W-CA,FE,FA, 13:20: [place] <1MG, 52 Medical ( Branch VITAMIN ORAL) metroNIDAZO Yes [id number] 500mg Take 1 Univers LE (FLAGYL) 9-03 tablet by ity of 500 mg 00:00: mouth [place] tablet 00 every 12 Medical (twelve) Branch hours. metroNIDAZO Yes [id number] 500mg Take 1 Univers LE (FLAGYL) 9-03 tablet by ity of 500 mg 00:00: mouth [place] tablet 00 every 12 Medical (twelve) Branch hours. metroNIDAZO 2023-0 Yes [id number] 500mg Take 1 Univers LE (FLAGYL) 9-03 tablet by ity of 500 mg 00:00: mouth [place] tablet 00 every 12 Medical (twelve) Branch hours. metroNIDAZO 2022-0 Yes [id number] 500mg Take 1 Univers LE (FLAGYL) 9-03 tablet by ity of 500 mg 00:00: mouth [place] tablet 00 every 12 Medical (twelve) Branch hours. metroNIDAZO 2022-0 Yes [id number] 500mg Take 1 Univers LE (FLAGYL) 9-03 tablet by ity of 500 mg 00:00: mouth [place] tablet 00 every 12 Medical (twelve) Branch hours. metroNIDAZO 2022-0 Yes [id number] 500mg Take 1 Univers LE (FLAGYL) 9-03 tablet by ity of 500 mg 00:00: mouth [place] tablet 00 every 12 Medical (twelve) Branch hours. metroNIDAZO 2022-0 Yes [id number] 500mg Take 1 Univers LE (FLAGYL) 9-03 tablet by ity of 500 mg 00:00: mouth [place] tablet 00 every 12 Medical (twelve) Branch hours. Yes Take by [employer] VITS 8-18 mouth. ity of W-CA,FE,FA, 13:19: [place] <1MG, 18 Medical ( Branch VITAMIN ORAL) Yes Take by [employer] VITS 8-18 mouth. ity of W-CA,FE,FA, 13:19: [place] <1MG, 18 Medical ( Branch VITAMIN ORAL) Yes Take by [employer] VITS 8-18 mouth. ity of W-CA,FE,FA, 13:19: [place] <1MG, 18 Medical ( Branch VITAMIN ORAL) Yes Take by [employer] VITS 8-18 mouth. ity of W-CA,FE,FA, 13:19: [place] <1MG, 18 Medical ( Branch VITAMIN ORAL) Yes Take by [employer] VITS 8-18 mouth. ity of W-CA,FE,FA, 13:19: [place] <1MG, 18 Medical ( Branch VITAMIN ORAL) Yes Take by [employer] s VITS 8-18 mouth. ity of W-CA,FE,FA, 13:19: [place] <1MG, 18 Medical ( Branch VITAMIN ORAL) 2022-0 Yes Take by [facility] s VITS 8-18 mouth. ity of W-CA,FE,FA, 13:19: [place] <1MG, 18 Medical ( Branch VITAMIN ORAL) 2022-0 Yes Take by Univer s VITS 8-18 mouth. ity of W-CA,FE,FA, 13:19: [place] <1MG, 18 Medical ( Branch VITAMIN ORAL) 2022-0 Yes Take by Univ s VITS 8-18 mouth. ity of W-CA,FE,FA, 13:19: [place] <1MG, 18 Medical ( Branch VITAMIN ORAL) PNV 2022-0 Yes Take by Univers no.95/castillo 6-21 mouth. ity of 15:56: [place] fum/folic 57 Medical ac Branch ( ORAL) PNV 2022-0 Yes Take by Univers no.95/castillo 6-21 mouth. ity of us 15:56: [place] fum/folic 57 Medical ac Branch ( ORAL) PNV 2022-0 Yes Take by Univers no.95/castillo 6-21 mouth. ity of us 15:56: [place] fum/folic 57 Medical ac Branch ( ORAL) PNV 2022-0 Yes Take by Univers no.95/castillo 6-21 mouth. ity of us 15:56: [place] fum/folic 57 Medical ac Branch ( ORAL) 0 Yes Take by Univer s VITS 6-21 mouth. ity of W-CA,FE,FA, 15:56: [place] <1MG, 57 Medical ( Branch VITAMIN ORAL) PNV 2022-0 Yes Take by Univers no.95/castillo 6-21 mouth. ity of us 15:56: [place] fum/folic 57 Medical ac Branch ( ORAL) PNV 2022-0 Yes Take by Univers no.95/castillo 6-21 mouth. ity of us 15:56: [place] fum/folic 57 Medical ac Branch ( ORAL) PNV 2022-0 Yes Take by Univers no.95/castillo 6-21 mouth. ity of us 15:56: [place] fum/folic 57 Medical ac Branch ( ORAL) PNV 2022-0 Yes Take by Univers no.95/castillo 6-21 mouth. ity of us 15:56: [place] fum/folic 57 Medical ac Branch ( ORAL) PNV 2022-0 Yes Take by Univers no.95/castillo 6-21 mouth. ity of us 15:56: [place] fum/folic 57 Medical ac Branch ( ORAL) PNV 2022-0 Yes Take by Univers no.95/castillo 6-21 mouth. ity of us 15:56: [place] fum/folic 57 Medical ac Branch ( ORAL) 0 Yes Take by Univer s VITS 6-21 mouth. ity of W-CA,FE,FA, 15:56: [place] <1MG, 57 Medical ( Branch VITAMIN ORAL) PNV 2022-0 Yes Take by Univers no.95/castillo 6-21 mouth. ity of us 15:56: [place] fum/folic 57 Medical ac Branch ( ORAL) PNV 2022-0 Yes Take by Univers no.95/castillo 6-21 mouth. ity of us 15:56: [place] fum/folic 57 Medical ac Branch ( ORAL) PNV 2022-0 Yes Take by Univers no.95/castillo 6-21 mouth. ity of us 15:56: [place] fum/folic 57 Medical ac Branch ( ORAL) PNV 2022-0 Yes Take by Univers no.95/castillo 6-21 mouth. ity of us 15:56: [place] fum/folic 57 Medical ac Branch ( ORAL) 0 Yes Take by Univer s VITS 6-21 mouth. ity of W-CA,FE,FA, 15:56: [place] <1MG, 57 Medical ( Branch VITAMIN ORAL) PNV 2022-0 Yes Take by Univers no.95/castillo 6-21 mouth. ity of us 15:56: [place] fum/folic 57 Medical ac Branch ( ORAL) PNV 2022-0 Yes Take by Univers no.95/castillo 6-21 mouth. ity of us 15:56: [place] fum/folic 57 Medical ac Branch ( ORAL) PNV 2022-0 Yes Take by Univers no.95/castillo 6-21 mouth. ity of us 15:56: [place] fum/folic 57 Medical ac Branch ( ORAL) PNV 2022-0 Yes Take by Univers no.95/castillo 6-21 mouth. ity of us 15:56: [place] fum/folic 57 Medical ac Branch ( ORAL) Yes Take by Univ s VITS 6-21 mouth. ity of W-CA,FE,FA, 15:56: [place] <1MG, 57 Medical ( Branch VITAMIN ORAL) PNV Yes Take by Univers no.95/castillo 6-21 mouth. ity of us 15:56: [place] fum/folic 57 Medical ac Branch ( ORAL) Yes Take by Univ s VITS 6-21 mouth. ity of W-CA,FE,FA, 15:56: [place] <1MG, 57 Medical ( Branch VITAMIN ORAL) PNV Yes Take by Univers no.95/castillo 6-21 mouth. ity of 15:56: [place] fum/folic 57 Medical ac Branch ( ORAL) Yes Take by Univ s VITS 6-21 mouth. ity of W-CA,FE,FA, 15:56: [place] <1MG, 57 Medical ( Branch VITAMIN ORAL) PNV Yes Take by Univers no.95/castillo 6-21 mouth. ity of 15:56: [place] fum/folic 57 Medical ac Branch ( ORAL) PNV Yes Take by Univers no.95/[place]illo 6-16 mouth. ity of 13:11: [place] fum/folic 10 Medical ac Branch ( ORAL) PNV Yes Take by Univers no.95/castillo 6-16 mouth. ity of 13:11: [place] fum/folic 10 Medical ac Branch ( ORAL) acetaminoph No 650mg 650 mg, U nivers en 08-21- Oral, ity of (TYLENOL) 20:15: 20:14 ONCE, 1 [place] tablet 650 00 :00 dose, On Medic al mg 08/21/22 Branch at 1515, ARLINE pseudoephed Yes [id number] 60mg Take 1 Tab Univers rine 5-09 by mouth ity of (SUDAFED) 00:00: every 6 [place] 60 mg 00 (six) Medical tablet hours as Branch needed (allergies , nasal congestion . ). pseudoephed Yes [id number] 60mg Take 1 Tab Univers rine 5-09 by mouth ity of (SUDAFED) 00:00: every 6 [place] 60 mg 00 (six) Medical tablet hours as Branch needed (allergies , nasal congestion . ). pseudoephed Yes [id number] 60mg Take 1 Tab Univers rine 5-09 by mouth ity of (SUDAFED) 00:00: every 6 [place] 60 mg 00 (six) Medical tablet hours as Branch needed (allergies , nasal congestion . ). pseudoephed Yes [id number] 60mg Take 1 Tab Univers rine 5-09 by mouth ity of (SUDAFED) 00:00: every 6 [place] 60 mg 00 (six) Medical tablet hours as Branch needed (allergies , nasal congestion . ). pseudoephed Yes [id number] 60mg Take 1 Tab Univers rine 5-09 by mouth ity of (SUDAFED) 00:00: every 6 [place] 60 mg 00 (six) Medical tablet hours as Branch needed (allergies , nasal congestion . ). pseudoephed Yes [id number] 60mg Take 1 Tab Univers rine 5-09 by mouth ity of (SUDAFED) 00:00: every 6 [place] 60 mg 00 (six) Medical tablet hours as Branch needed (allergies , nasal congestion . ). pseudoephed Yes [id number] 60mg Take 1 Tab Univers rine 5-09 by mouth ity of (SUDAFED) 00:00: every 6 [place] 60 mg 00 (six) Medical tablet hours as Branch needed (allergies , nasal congestion . ). pseudoephed Yes [id number] 60mg Take 1 Tab Univers rine 5-09 by mouth ity of (SUDAFED) 00:00: every 6 [place] 60 mg 00 (six) Medical tablet hours as Branch needed (allergies , nasal congestion . ). pseudoephed Yes [id number] 60mg Take 1 Tab Univers rine 5-09 by mouth ity of (SUDAFED) 00:00: every 6 [place] 60 mg 00 (six) Medical tablet hours as Branch needed (allergies , nasal congestion . ). pseudoephed Yes [id number] 60mg Take 1 Tab Univers rine 5-09 by mouth ity of (SUDAFED) 00:00: every 6 [place] 60 mg 00 (six) Medical tablet hours as Branch needed (allergies , nasal congestion . ). pseudoephed Yes [id number] 60mg Take 1 Tab Univers rine 5-09 by mouth ity of (SUDAFED) 00:00: every 6 [place] 60 mg 00 (six) Medical tablet hours as Branch needed (allergies , nasal congestion . ). pseudoephed Yes [id number] 60mg Take 1 Tab Univers rine 5-09 by mouth ity of (SUDAFED) 00:00: every 6 [place] 60 mg 00 (six) Medical tablet hours as Branch needed (allergies , nasal congestion . ). pseudoephed Yes [id number] 60mg Take 1 Tab Univers rine 5-09 by mouth ity of (SUDAFED) 00:00: every 6 [place] 60 mg 00 (six) Medical tablet hours as Branch needed (allergies , nasal congestion . ). pseudoephed Yes [id number] 60mg Take 1 Tab Univers rine 5-09 by mouth ity of (SUDAFED) 00:00: every 6 [place] 60 mg 00 (six) Medical tablet hours as Branch needed (allergies , nasal congestion . ). pseudoephed Yes [id number] 60mg Take 1 Tab Univers rine 5-09 by mouth ity of (SUDAFED) 00:00: every 6 [place] 60 mg 00 (six) Medical tablet hours as Branch needed (allergies , nasal congestion . ). pseudoephed Yes [id number] 60mg Take 1 Tab Univers rine 5-09 by mouth ity of (SUDAFED) 00:00: every 6 [place] 60 mg 00 (six) Medical tablet hours as Branch needed (allergies , nasal congestion . ). pseudoephed Yes [id number] 60mg Take 1 Tab Univers rine 5-09 by mouth ity of (SUDAFED) 00:00: every 6 [place] 60 mg 00 (six) Medical tablet hours as Branch needed (allergies , nasal congestion . ). pseudoephed Yes [id number] 60mg Take 1 Tab Univers rine 5-09 by mouth ity of (SUDAFED) 00:00: every 6 [place] 60 mg 00 (six) Medical tablet hours as Branch needed (allergies , nasal congestion . ). pseudoephed Yes [id number] 60mg Take 1 Tab Univers rine 5-09 by mouth ity of (SUDAFED) 00:00: every 6 [place] 60 mg 00 (six) Medical tablet hours as Branch needed (allergies , nasal congestion . ). pseudoephed Yes [id number] 60mg Take 1 Tab Univers rine 5-09 by mouth ity of (SUDAFED) 00:00: every 6 [place] 60 mg 00 (six) Medical tablet hours as Branch needed (allergies , nasal congestion . ). pseudoephed Yes [id number] 60mg Take 1 Tab Univers rine 5-09 by mouth ity of (SUDAFED) 00:00: every 6 [place] 60 mg 00 (six) Medical tablet hours as Branch needed (allergies , nasal congestion . ). pseudoephed Yes [id number] 60mg Take 1 Tab Univers rine 5-09 by mouth ity of (SUDAFED) 00:00: every 6 [place] 60 mg 00 (six) Medical tablet hours as Branch needed (allergies , nasal congestion . ). Immunizations Ordered Filled Date Status Comments Source Immunization Name Immunization Name HPV9 2022-05-06 Completed University of 00:00:00 [facility] HPV9 2022-05-06 Completed University of 00:00:00 [facility] HPV9 2022-05-06 Completed University of 00:00:00 [facility] HPV9 2022-05-06 Completed University of 00:00:00 [facility] HPV9 2022-05-06 Completed University of 00:00:00 [facility] HPV9 2022-05-06 Completed University of 00:00:00 [facility] HPV9 2022-05-06 Completed University of 00:00:00 [facility] HPV9 2022-05-06 Completed University of 00:00:00 [facility] HPV9 2022-05-06 Completed University of 00:00:00 [facility] HPV9 2022-05-06 Completed University of 00:00:00 [facility] HPV9 2022-05-06 Completed University of 00:00:00 [facility] HPV9 2022-05-06 Completed University of 00:00:00 [facility] HPV9 2022-05-06 Completed University of 00:00:00 [facility] HPV9 2022-05-06 Completed University of 00:00:00 [facility] HPV9 2022-05-06 Completed University of 00:00:00 [facility] HPV9 2022-05-06 Completed University of 00:00:00 [place] [facility] HPV9 2022-05-06 Completed University of 00:00:00 [place] [facility] HPV9 2022-05-06 Completed University of 00:00:00 [place] [facility] HPV9 2022-05-06 Completed University of 00:00:00 [place] [facility] HPV9 2022-05-06 Completed University of 00:00:00 [place] [facility] HPV9 2022-05-06 Completed University of 00:00:00 [place] [facility] HPV9 2022-05-06 Completed University of 00:00:00 [place] [facility] HPV9 2022-05-06 Completed University of 00:00:00 [place] [facility] HPV9 2022-05-06 Completed University of 00:00:00 [facility] Branch TD, NOS 2007-10-22 Completed University of 00:00:00 [facility] Branch TD, NOS 2007-10-22 Completed University of 00:00:00 [facility] Branch TD, NOS 2007-10-22 Completed University of 00:00:00 [facility] Branch TD, NOS 2007-10-22 Completed University of 00:00:00 [place] [facility] TD, NOS 2007-10-22 Completed University of 00:00:00 [place] [facility] TD, NOS 2007-10-22 Completed University of 00:00:00 [place] [facility] TD, NOS 2007-10-22 Completed University of 00:00:00 [place] [facility] TD, NOS 2007-10-22 Completed University of 00:00:00 [place] [facility] TD, NOS 2007-10-22 Completed University of 00:00:00 [place] [facility] TD, NOS 2007-10-22 Completed University of 00:00:00 [place] [facility] TD, NOS 2007-10-22 Completed University of 00:00:00 [place] [facility] TD, NOS 2007-10-22 Completed University of 00:00:00 [place] [facility] TD, NOS 2007-10-22 Completed University of 00:00:00 [place] [facility] TD, NOS 2007-10-22 Completed University of 00:00:00 [facility] Branch TD, NOS 2007-10-22 Completed University of 00:00:00 [facility] Branch TD, NOS 2007-10-22 Completed University of 00:00:00 [facility] Branch TD, NOS Unknown Completed University [facility] HPV9 Unknown Completed University [facility] TD, NOS Unknown Completed University [facility] HPV9 Unknown Completed [facility] TD, NOS Unknown Completed [facility] HPV9 Unknown Completed [facility] Influenza Virus Unknown Completed Universit y of Vaccine Quad IM, [place] [facility] dical Preserv and ABX Branch Free 6 MO-64 YRS (FLUCELVAX) Rho (d) Immune Unknown Completed [facility] TDAP Unknown Completed [facility] TD, NOS Unknown Completed [facility] HPV9 Unknown Completed [facility] Influenza Virus Unknown Completed Universit y of Vaccine Quad IM, [place] [facility] dical Preserv and ABX Branch Free 6 MO-64 YRS (FLUCELVAX) Rho (d) Immune Unknown Completed [facility] TDAP Unknown Completed [facility] TD, NOS Unknown Completed [facility] HPV9 Unknown Completed [facility] Influenza Virus Unknown Completed Universit y of Vaccine Quad IM, [place] [facility] dical Preserv and ABX Branch Free 6 MO-64 YRS (FLUCELVAX) Rho (d) Immune Unknown Completed [facility] TDAP Unknown Completed [facility] TD, NOS Unknown Completed [facility] HPV9 Unknown Completed [facility] Influenza Virus Unknown Completed Universit y of Vaccine Quad IM, [place] [facility] dical Preserv and ABX Branch Free 6 MO-64 YRS (FLUCELVAX) Rho (d) Immune Unknown Completed [facility] TDAP Unknown Completed [facility] Vital Signs Vital Name Observation Time Observation Value Comments Source Systolic blood 2022-12-25 21:30:00 110 mm[Hg] Univer sity of pressure [facility] Diastolic blood 2022-12-25 21:30:00 69 mm[Hg] Unive rsity of [facility] Heart rate 2022-12-25 21:30:00 71 /min [facility] Body temperature 2022-12-25 21:30:00 36.5 [facility]lyssa [facility] Res[facility] rate 2022-12-25 21:30:00 18 /min [facility] Body height 2022-12-25 21:30:00 167.6 cm [facility] Body weight 2022-12-25 21:30:00 88.451 kg [facility] BMI 2022-12-25 21:30:00 31.47 kg/m2 Universi ty of [place] [facility] Systolic blood 2022-11-27 18:20:00 109 mm[Hg] Univer sity of pressure [place] [facility] Diastolic blood 2022-11-27 18:20:00 69 mm[Hg] Unive rsity of pressure [place] [facility] Heart rate 2022-11-27 18:20:00 81 /min Universi ty of [place] [facility] Body temperature 2022-11-27 18:20:00 36.72 Alyssa Univ ersity of [place] [facility] Respiratory rate 2022-11-27 18:20:00 16 /min Univ ersity of [place] [facility] Body height 2022-11-27 18:20:00 167.6 cm Universi ty of [place] [facility] Body weight 2022-11-27 18:20:00 86.955 kg Universi ty of [place] [facility] BMI 2022-11-27 18:20:00 30.94 kg/m2 Universi ty of [place] [facility] Systolic blood 2022-11-13 13:23:00 100 mm[Hg] Univer sity of pressure [place] [facility] Diastolic blood 2022-11-13 13:23:00 64 mm[Hg] Unive rsity of pressure [place] [facility] Heart rate 2022-11-13 13:23:00 82 /min Universi ty of [place] [facility] Body temperature 2022-11-13 13:23:00 36.78 Alyssa Univ ersity of [place] [facility] Respiratory rate 2022-11-13 13:23:00 17 /min Univ ersity of [place] [facility] Body height 2022-11-13 13:23:00 167.6 cm Universi ty of [place] [facility] Body weight 2022-11-13 13:23:00 86.637 kg Universi ty of [place] [facility] BMI 2022-11-13 13:23:00 30.83 kg/m2 Universi ty of [place] [facility] Systolic blood 2022-10-30 18:18:00 99 mm[Hg] Univer sity of pressure [place] [facility] Diastolic blood 2022-10-30 18:18:00 62 mm[Hg] Unive rsity of pressure [place] [facility] Heart rate 2022-10-30 18:18:00 106 /min Universi ty of [place] [facility] Respiratory rate 2022-10-30 18:18:00 18 /min Univ ersity of [place] [facility] Body height 2022-10-30 18:18:00 167.6 cm Universi ty of [place] [facility] Body weight 2022-10-30 18:18:00 85.73 kg Universi ty of [place] [facility] BMI 2022-10-30 18:18:00 30.51 kg/m2 Universi ty of [facility] Systolic blood 2022-10-01 18:24:00 109 mm[Hg] Univer sity of pressure [facility] Branch Diastolic blood 2022-10-01 18:24:00 72 mm[Hg] Unive rsity of pressure [facility] Branch Heart rate 2022-10-01 18:24:00 82 /min Universi ty of [facility] Body temperature 2022-10-01 18:24:00 36.78 Alyssa Univ ersity of [facility] Respiratory rate 2022-10-01 18:24:00 16 /min Univ ersity of [facility] Body height 2022-10-01 18:24:00 167.6 cm Universi ty of [place] [facility] Body weight 2022-10-01 18:24:00 86.274 kg Universi ty of [place] [facility] BMI 2022-10-01 18:24:00 30.70 kg/m2 Universi ty of [facility] Branch Oxygen saturation in 2022-10-01 18:24:00 98 /min University of Arterial blood by [facility] Pulse oximetry Branch Systolic blood 2022-08-28 18:09:00 122 mm[Hg] Univer sity of pressure [facility] Diastolic blood 2022-08-28 18:09:00 73 mm[Hg] Unive rsity of pressure [facility] Branch Heart rate 2022-08-28 18:09:00 78 /min [facility] Body temperature 2022-08-28 18:09:00 36.83 Alyssa Univ ersity of [facility] Body height 2022-08-28 18:09:00 167.6 cm [facility] Body weight 2022-08-28 18:09:00 86.365 kg [facility] BMI 2022-08-28 18:09:00 30.73 kg/m2 Universi ty of [facility] Systolic blood 2022-08-21 19:20:00 123 mm[Hg] Univer sity of pressure [facility] Diastolic blood 2022-08-21 19:20:00 77 mm[Hg] Unive rsity of [facility] Heart rate 2022-08-21 19:20:00 85 /min Universi ty [facility] Body temperature 2022-08-21 19:20:00 37.28 Alyssa [facility] Respiratory rate 2022-08-21 19:20:00 16 /min [facility] Body height 2022-08-21 19:20:00 167.6 cm Universi ty [facility] Body weight 2022-08-21 19:20:00 83.915 kg Universi ty [facility] BMI 2022-08-21 19:20:00 29.86 [facility] Oxygen saturation in 2022-08-21 19:20:00 98 /min [facility] Arterial blood by [facility] Pulse oximetry Branch Systolic blood 2022-07-31 15:43:00 99 mm[Hg] Univer sity of [facility] Diastolic blood 2022-07-31 15:43:00 63 mm[Hg] Unive rsity of [facility] Heart rate 2022-07-31 15:43:00 67 /min Universi ty [facility] Respiratory rate 2022-07-31 15:43:00 18 /min [facility] Body height 2022-07-31 15:43:00 167.6 cm Universi ty [facility] Body weight 2022-07-31 15:43:00 86.637 kg Universi ty [facility] BMI 2022-07-31 15:43:00 30.83 kg/m2 [facility] Procedures Procedure Date / Time Performing Clinician Source Performed TDAP VACCINE, >11 YRS, 2022-12-25 21:44:25 Katherin Pena [facility] Branch FLU VACC ([id number]), 6 2022-12-25 21:31:20 Marielos Pena [facility] MO-64 YRS, .5ML, IM, Medical Bra nch QUAD (FLUCELVAX) STERILIZATION CONSENT 2022-12-25 05:01:00 Doctor Unassigned, No [facility] [place] POCT URINALYSIS W/O 2022-12-25 00:00:00 Katherin Pena [facility] [place] POCT URINALYSIS W/O 2022-11-27 00:00:00 Katherin Pena [facility] Medical Branch SECOND AND THIRD 2022-11-13 20:14:00 [facility] ULTRASOUND Medical [facility] POCT URINALYSIS W/O 2022-11-13 00:00:00 Katherin Pena [facility] [place] POCT URINALYSIS W/O 2022-10-30 00:00:00 Katherin Pena [facility] [place] POCT URINALYSIS W/O 2022-10-01 00:00:00 Katherin Pena [facility] [place] EXTERNAL PROVIDER 2022-09-17 05:01:00 Doctor Unassigned, No [facility] SCANNED LAB RESULTS 2022-09-01 05:01:00 Doctor Unassigned, No [facility] CBC WITH DIFF 2022-08-28 19:53:00 Katherin Pena [facility] POCT URINALYSIS W/O 2022-08-28 00:00:00 Katherin Pena Un iversity of [facility] EKG-12 LEAD 2022-08-21 21:04:23 Ann Das [facility] ASSIGNMENT OF BENEFITS 2022-08-21 19:55:35 Doctor Unassigned, No [facility] TROPONIN I 2022-08-21 19:36:00 Ann Das [facility] COMP. METABOLIC PANEL 2022-08-21 19:36:00 Ann Das [facility] ([id number]) Medical [place] CBC WITH DIFF 2022-08-21 19:36:00 Ann Das [facility] NOTICE OF PRIVACY 2022-08-21 19:05:14 Doctor Unassigned, No Univ [facility] PRACTICES Name [facility] CONSENT/REFUSAL FOR 2022-08-21 19:04:59 Doctor Unassigned, No [facility] Name [facility] OB TRANSVAGINAL 2022-07-31 16:11:03 Katherin [facility]ena [facility] AUTHORIZATION TO RELEASE 2022-07-31 05:01:00 Doctor Unassigned, No [facility] PHI TO [facility] POCT TEST 2022-07-31 00:00:00 Katherin Pena Un iversity [facility] POCT URINALYSIS W/O 2022-07-31 00:00:00 Katherin Pena Un [facility] SPECIFIC GRAVITY [facility] Encounters Start End Encounter Admission Attending Care Care Encounter Source Date/Time Date/Time Type Type Clinicians Facility Department ID 2023-01-08 2023-01-08 Outpatient R MADELYN PENASOL [facility] [id number] Univers 16:15:00 16:15:00 HUERTASMADELYN LATHAMSOL ity [facility] 2022-12-25 2022-12-25 Outpatient R MADELYN PENASOL [facility] [id number] Univers 16:15:00 16:51:29 MADELYN PENASOL ity [facility] 2022-12-25 2022-12-25 Routine Aleksandar-Bethany [facility] 1.2.840.114 [id number] Univers 16:15:00 16:51:29 s Katheringuadalupe CHISHOLM 350.1.13.10 ity of [place] [id number] [facility] 134 Branch 2022-12-25 2022-12-25 Orders Doctor DISLA 1.2.840.114 [id number] Univers 00:00:00 00:00:00 Only UnassignedDENA 350.1.13.10 ity of [place] [facility] 4.2.7.2.686 Saad as [id number] [facility] 009 Branch 2022-12-18 2022-12-18 Outpatient R KATHERIN PENA [facility] [id number] Univers 16:00:00 16:00:00 MADELYN PENASOL ity [facility] 2022-12-17 2022-12-17 Outpatient R MADELYN PENASOL [facility] [id number] Univers 16:15:00 16:15:00 MADELYN PENASOL ity [facility] 2022-12-02 2022-12-02 Tying Machine Operator Davina, Adc Lab Main [facility] 1.2.8 40.114 [id number] Univers 09:15:00 09:30:00 Visit Katherin Pena MAURO 350.1.1 3.10 ity [facility] [place] [id number] [address] 2022-12-02 2022-12-02 Outpatient R MARIELOS PENAL [facility] [id number] Univers 09:15:00 09:15:00 MADELYN PENASOL ity [facility] 2022-11-27 2022-11-[address] [facility] 1.2.840.114 [id number] Univers 13:15:00 13:40:32 sKatherin 350.1.13.10 ity of [place] [id number] [facility] 134 Branch 2022-11-27 2022-11-27 Outpatient R MARIELOS PENAL [facility] [id number] Univers 13:15:00 13:40:32 MADELYN PENASOL ity [facility] 2022-11-15 2022-11-[address] [facility] 1.2.840.114 [id number] Univers 00:00:00 00:00:00 Management sKatherin 350.1.13.10 ity [place] [id number] [address] 2022-11-13 2022-11-13 Outpatient P JOYCE BHATT [facility] [id number] Univers 14:30:00 15:08:16 JOYCE BHATT ity of [facility] 2022-11-13 2022-11-13 Tying Machine Operator Ultrasound, Nkechi [facility] 1.2 .840.114 [id number] Univers 14:30:00 15:08:16 Visit Katherin Pena INFORMATION AND DATA ARCHITECT ANALYST 350.1.13 .10 ity of Joyce Bhatt [facility] 4.2.7.2.686 [place] MATERNAL [id number] [facility] ical & CHILD [address] [place] [address] 2022-11-13 2022-11-13 Routine [facility] 1.2.840.114 [id number] Univers 08:15:00 08:36:51 sKatherin 350.1.13.10 ity of [place] [id number] [address] 2022-11-13 2022-11-13 Telephone [facility] 1.2.840.11 4 [id number] Univers 00:00:00 00:00:00 Katherin acosta 350.1.13.10 it[place] [id number] [address] 2022-11-12 2022-11-12 Telephone [facility] 1.2.840.11 4 [id number] Univers 00:00:00 00:00:00 Katherin acosta 350.1.13.10 it[place] [id number] [address] 2022-11-10 2022-11-10 Patient [facility] 1.2.840.114 [id number] Univers 00:00:00 00:00:00 Secure Msg Katherin acosta 350.1.13.10 it[place] [id number] [address] 2022-10-30 2022-10-30 Tying Machine Operator Chelly Ghosh Lab Main [facility] 1.2.8 40.114 [id number] Univers 14:45:00 15:00:00 Visit Katherin PenaCLAUDIA 350.1.1 3.10 ity of [facility] 4.[place] [id number] Id dical [address] 2022-10-30 2022-10-30 Outpatient R MADELYN PENASOL [facility] [id number] Univers 14:45:00 14:45:00 HUERTAS-MADELYN GAYLESOL ity [facility] 2022-10-30 2022-10-30 Routine Huertas-Bethany [facility] KIM 1.2.840.114 [id number] Univers 13:15:00 13:27:45 sKatherin 350.1.13.10 it[place] [id number] [address] 2022-10-29 2022-10-29 Outpatient R MADELYN PENASOL [facility] [id number] Univers 13:00:00 13:00:00 ALEKSANDAR[facility]22-10-27 2022-10-27 Outpatient P [facility] [id number] Univers 15:00:00 15:00:00 ity [facility] 2022-10-01 2022-10-01 Outpatient R MADELYN PENASOL [facility] U [facility] [id number] Univers 13:15:00 13:40:38 HUERTAS-MADELYN GAYLESOL ity [facility] 2022-10-01 2022-10-01 Routine Huertas-Bethany [facility] KIM 1.2.840.114 [id number] Univers 13:15:00 13:40:38 sKatherin 350.1.13.10 ity [place] [id number] [address] 2022-09-17 2022-09-17 Orders Doctor NIGHAT 1.2.840.114 [id number] Univers 00:00:00 00:00:00 Only Unassigned, DENA 350.1.13.10 ity of [place] [facility] 4.2.7.2.686 Saad as [id number] [address] 2022-09-10 2022-09-10 Telephone [facility] 1.2.840.11 4 [id number] Univers 00:00:00 00:00:00 Katherin acosta 350.1.13.10 it[place] [id number] [address] 2022-09-08 2022-09-08 Telephone [facility] 1.2.840.114 10 [id number] Univers 00:00:00 00:00:00 Joyce PHAN 350.1.13.10 it y [place] [id number] [address] 2022-09-07 2022-09-07 Telephone [facility] 1.2.840.114 [id number] Univers 00:00:00 00:00:00 Joyce CHISHOLM 350.1.13.10 it y [place] [id number] [address] 2022-09-01 2022-09-01 Orders Doctor NIGHAT 1.2.840.114 [id number] Univers 00:00:00 00:00:00 Only Unassigned, DENA 350.1.13.10 ity of [place] [facility] 4.2.7.2.686 Saad as [id number] [address] 2022-08-28 2022-08-28 Tying Machine Operator Davina, Chelly Lab Main [facility] 1.2.8 40.114 [id number] Univers 14:45:00 15:00:00 Visit Katherin Pena 350.1.1 3.10 ity of [place] [id number] Id dical NAL [address] [facility] 2022-08-282022-08-28 Outpatient R MARCO AGAYLEMADELYN BALLSOL [facility] U [facility] [id number] Univers 13:00:00 13:32:37 MARIELOS PENAL ity of [facility] 2022-08-28 2022-08-28 Routine [facility] 1.2.840.114 [id number] Univers 13:00:00 13:15:00 s Katheringuadalupe CHISHOLM 350.1.13.10 ity of Visit [facility] 4.2.7.2.686 [facility] [id number] [facility] [address] Branch 2022-08-21 2022-08-21 Emergency [facility] [id number] Univers 14:23:00 16:23:00 ANN itlyle [facility] 2022-08-21 2022-08-21 Emergency [facility] 1.2.840.114 10 [id number] Univers 14:23:00 16:23:00 Ann WADE 350.1.13.10 ity of [place] 4.2.7.2.686 [facility] [id number] [facility] 084 Branch 2022-08-21 2022-08-21 Orders Doctor NIGHAT 1.2.840.114 [id number] Univers 00:00:00 00:00:00 Only Unassigned, DENA 350.1.13.10 ity of [place] [facility] 4.2.7.2.686 Saad [id number] [facility] 009 Branch 2022-08-21 2022-08-21 Patient [facility] 1.2.840.114 [id number] Univers 00:00:00 00:00:00 Secure Msg Katherin acosta PHAN 350.1.13.10 ity [facility] 4.2.7.2.686 [facility] [id number] [facility] [address] Branch 2022-08-21 2022-08-21 Telephone [facility] 1.2.840.114 [id number] Univers 00:00:00 00:00:00 Katherin acosta 350.1.13.10 ity of [place] [id number] Id dical [address] 2022-08-08 2022-08-08 Patient Fabricio KIM 1.2.840.114 [id number] Univers 00:00:00 00:00:00 Secure Msg Katherin acosta 350.1.13.10 it[place] [id number] [address] 2022-07-31 2022-07-31 Initial Fabrciio KIM 1.2.840.114 [id number] Univers 10:30:00 11:16:56 sKatherin 350.1.13.10 it[place] [id number] [address] 2022-07-31 2022-07-31 Outpatient R KATHERIN PENA [facility] U [facility] [id number] Univers 10:30:00 11:16:56 HUERTAS-IRWIN, KATHERIN ity of [facility] 2022-07-31 2022-07-31 Orders Doctor NIGHAT 1.2.840.114 [id number] Univers 00:00:00 00:00:00 Only Unassigned, DENA 350.1.13.10 ity of [place] [facility] 4.2.7.2.686 Saad as [id number] [address] 2022-05-06 2022-05-06 Outpatient [facility] [id number] Maurilio 17:10:15 17:10:15 0222 F Jarrett 2022-04-03 2022-04-03 Outpatient [facility] [id number] Maurilio 13:43:03 13:43:03 0120 F Jarrett Results Test Description Test Time Test Comments Results Result Comments Source POCT URINALYSIS W/O SPECIFIC GRAVITY 2022-12-25 21:46:00 Test Item Value Reference Range Interpretation Comme nts POCT PH U (test code = 3254) n/a 5-8 POCT U LEUK EST (test code = 3263) n/a Negative - Negative POCT U NIT (test code = 3262) n/a Negative - Negative POCT U PROT (test code = 3259) Negative Negative - Negative POCT U GLU (test code = 3256) Negative Negative - Negative POCT U KETONE (test code = 3258) n/a Negative - Negative POCT U BLD (test code = 3257) n/a Negative - Negative [facility] URINALYSIS W/O SPECIFIC [id number] 21:46:00 Test Item Value Reference Range Interpretation Comments POCT PH U (test code = 3254) n/a 5-8 POCT U LEUK EST (test code = n/a Negative - Negative 3263) POCT U NIT (test code = 3262) n/a Negative - Negative POCT U PROT (test code = 3259) Negative Negative - Negative POCT U GLU (test code = 3256) Negative Negative - Negative POCT U KETONE (test code = 3258) n/a Negative - Negative POCT U BLD (test code = 3257) n/a Negative - Negative [facility] URINALYSIS W/O SPECIFIC [id number] 21:46:00 Test Item Value Reference Range Interpretation Comments POCT PH U (test code = 3254) n/a 5-8 POCT U LEUK EST (test code = n/a Negative - Negative 3263) POCT U NIT (test code = 3262) n/a Negative - Negative POCT U PROT (test code = 3259) Negative Negative - Negative POCT U GLU (test code = 3256) Negative Negative - Negative POCT U KETONE (test code = 3258) n/a Negative - Negative POCT U BLD (test code = 3257) n/a Negative - Negative [facility]CT URINALYSIS W/O SPECIFIC [id number] 18:19:00 Test Item Value Reference Range Interpretation Comments POCT PH U (test code = 3254) n/a 5-8 POCT U LEUK EST (test code = n/a Negative - Negative 3263) POCT U NIT (test code = 3262) n/a Negative - Negative POCT U PROT (test code = 3259) negative Negative - Negative POCT U GLU (test code = 3256) negative Negative - Negative POCT U KETONE (test code = 3258) n/a Negative - Negative POCT U BLD (test code = 3257) n/a Negative - Negative [facility] SPECIFIC [id number] 13:23:00 Test Item Value Reference Range Interpretation Comments POCT PH U (test code = 3254) 6 mg/dl 5-8 POCT U LEUK EST (test code = negative Negative - Negative 3263) POCT U NIT (test code = 3262) negative Negative - Negative POCT U PROT (test code = 3259) negaitve Negative - Negative POCT U GLU (test code = 3256) negative Negative - Negative POCT U KETONE (test code = 3258) negative Negative - Negative POCT U BLD (test code = 3257) negative Negative - Negative [facility] URINALYSIS W/O SPECIFIC [id number] 18:21:00 Test Item Value Reference Range Interpretation Comments POCT PH U (test code = 3254) N/A 5-8 POCT U LEUK EST (test code = N/A Negative - Negative 3263) POCT U NIT (test code = 3262) N/A Negative - Negative POCT U PROT (test code = 3259) Negative Negative - Negative POCT U GLU (test code = 3256) Negative Negative - Negative POCT U KETONE (test code = 3258) N/A Negative - Negative POCT U BLD (test code = 3257) N/A Negative - Negative [facility] URINALYSIS W/O SPECIFIC [id number] 18:45:00 Test Item Value Reference Range Interpretation Comments POCT PH U (test code = 3254) n/a 5-8 POCT U LEUK EST (test code = n/a Negative - Negative 3263) POCT U NIT (test code = 3262) n/a Negative - Negative POCT U PROT (test code = 3259) negative Negative - Negative POCT U GLU (test code = 3256) negative Negative - Negative POCT U KETONE (test code = 3258) n/a Negative - Negative POCT U BLD (test code = 3257) n/a Negative - Negative [facility] WITH [id number] 20:05:45 Test Item Value Reference Range Interpretation Comments WBC (test code = 8.63 See_Comment [Automated 6690-2) message] The sy stem which generated this result transmitted reference range : 4.30 - 11.10 10*3/?L. The reference range was not used to interpret this result as normal/abnormal . RBC (test code = 4.26 See_Comment [Automated 789-8) message] The sy stem which generated this result transmitted reference range : 3.93 - 5.25 10*6/?L. The reference range was not used to interpret this result as normal/abnormal . HGB (test code = 13.1 g/dL 11.6-15.0 718-7) HCT (test code = 37.9 % 35.7-45.2 4544-3) MCV (test code = 89.0 fL 80.6-95.5 787-2) MCH (test code = 30.8 pg 25.9-32.8 785-6) MCHC (test code = 34.6 g/dL 31.6-35.1 786-4) RDW-SD (test code = 44.4 fL 39.0-49.9 18104-0) RDW-CV (test code = 13.7 % 12.0-15.5 788-0) PLT (test code = 218 See_Comment [Automated 777-3) message] The sy stem which generated this result transmitted reference range : 166 - 358 10*3/ ?L. The reference r jeremy was not used to interpret this result as normal/abnormal . MPV (test code = 10.7 fL 9.5-12.9 86819-4) NRBC/100 WBC (test 0.0 See_Comment [Automat ed code = 1195978283) message] The system which generated this result transmitted reference range : 0.0 - 10.0 /100 WBCs. The refer ence range was not u sed to interpret th is result as normal/abnormal . NRBC x10^3 (test code See_Comment [Auto mated = 1213910904) message] The s ystem which generated this result transmitted reference range : 10*3/?L. The reference range was not used to interpret this result as normal/abnormal . GRAN MAT (NEUT) % 53.0 % (test code = 770-8) IMM GRAN % (test code 0.20 % = 6389603101) LYMPH % (test code = 39.7 % 736-9) MONO % (test code = 5.8 % 5905-5) EOS % (test code = 1.0 % 713-8) BASO % (test code = 0.3 % 706-2) GRAN MAT x10^3(ANC) 4.56 10*3/uL 1.88-7.09 (test code = 7307910640) IMM GRAN x10^3 (test 0.00-0.06 code = 2388818069) LYMPH x10^3 (test code 3.43 10*3/uL 1.32-3.29 H = 731-0) MONO x10^3 (test code 0.50 10*3/uL 0.33-0.92 = 742-7) EOS x10^3 (test code = 0.09 10*3/uL 0.03-0.39 711-2) BASO x10^3 (test code 0.03 10*3/uL 0.01-0.07 = 704-7) Lab Interpretation Abnormal (test code = 48123-8) [facility] URINALYSIS W/O SPECIFIC [id number] 18:13:00 Test Item Value Reference Range Interpretation Comments POCT PH U (test code = 3254) n/a 5-8 POCT U LEUK EST (test code = n/a Negative - Negative 3263) POCT U NIT (test code = 3262) n/a Negative - Negative POCT U PROT (test code = 3259) Negative Negative - Negative POCT U GLU (test code = 3256) Normal Negative - Negative POCT U KETONE (test code = 3258) n/a Negative - Negative POCT U BLD (test code = 3257) n/a Negative - Negative [facility] [id number] 16:15:00 Test Item Value Reference Range Interpretation Comments POCT PREG (test code = 1605) Positive On board controls acceptable with C Yes Line (test code = 3574) POCT PREG LOT # (test code = 3575) POCT PREG TEST DATE (test code = 3576) [facility] URINALYSIS W/O SPECIFIC [id number] 16:15:00 Test Item Value Reference Range Interpretation Comments POCT PH U (test code = 3254) N/A 5-8 POCT U LEUK EST (test code = N/A Negative - Negative 3263) POCT U NIT (test code = 3262) N/A Negative - Negative POCT U PROT (test code = 3259) Trace Negative - Negative POCT U GLU (test code = 3256) Negative Negative - Negative POCT U KETONE (test code = 3258) N/A Negative - Negative POCT U BLD (test code = 3257) N/A Negative - Negative [facility] [id number] 16:12:47 Test Item Value Reference Range Interpretation Comments DIAGNOSIS: (test (NOTE) A) Curettag e - code = 8200) EndocervixInter john phase endometrium. En docervical tissue not pres ent. B) Biopsy - Cervix 10:00No diagnostic abno rmality. COMMENTS: (test (NOTE) The previous ly reported code = 8205) abnormal Pap (a ccession #[id number]) isre viewed. The atypical cells identified on the Pap slide a re notrepresented on the biopsy material. MICROSCOPIC (NOTE) A) This specime n is composed DESCRIPTION: (test of late code = 8210) proliferative/e arlysecretory (interval patte rn) endometrium. En docervical tissue isnot pr esent. The specimen is neg ative for dysplasia, polyp,hyperplas ia, and malignancy. B) This specimen includes fragme nts of squamous epithe liumadmixed with endocervic al cells and portions of end ometrium. Thespecimen is negative for dysplasia and m alignancy. An intacttransform ation zone component is no t represented. CLINICAL DATA: (NOTE) Not specified (test code = 8401) GROSS DESCRIPTION: (NOTE) A) SPECIM EN LABELED: (test code = 8220) Endocervi xSIZE/WEIGHT: 0.6x0.3x0.2 cm AggregateSPECIM EN COLOR: TanNUMBER OF TI SSUE PIECES: multipleSUBMITT ED IN CASSETTE(S): x1 MEDIUM: FormalinCOMMENT S:Irregularly shaped tissue f ragments. Filtered and entirelysubmitt ed. B) SPECIMEN LABELE D: Cervix 10:00SIZE/WEIGH T: 0.3x0.3x0.2 cm AggregateSPECIM EN COLOR: TanNUMBER OF TI SSUE PIECES: multipleSUBMITT ED IN CASSETTE(S): x1 MEDIUM: FormalinCOMMENT S:Irregularly shaped tissue f ragments with mucus. Filtered andentirely submitted. PATHOLOGIST: (test (NOTE) Key KrissZully Torres Specimens code = 8250) processed at [facility] [employer], [address] [facility] [place] [address], Phone: , CLIA: [id number] i nterpreted at [facility], [address] [place] [address], Phone: , CLIA: [id number] CPT: (test code = (NOTE) 29609g5 * [facility] has 8400) important patho logy staff changes effecti ve 05/13/2022. New pathology staff will provide uninterrupted, excellent patient care an d clinical consultation. S ee URL: [email or web address]. UNLESS OTHE RWISE INDICATED, ALL TESTING PERFORMED AT [employer] [address] [facility] [address] LABORATOR Y DIRECTOR: SEN NGUYEN M.D. CLIA NUMBER [id number] [facility] ACCREDITATION N O. [id number] PAP TEST, THINPREP, [id number] 18:55:53 Test Item Value Reference Interpretation Comments Range SOURCE: (test code Unspecified = 8001) SLIDES: (test code 1 = 8011) LMP: (test code = NOT GIVEN 8021) SPECIMEN ADEQUACY: (NOTE) Satisfac tory for (test code = 79502) evaluati on. Endocervical cells/transform ation zone component present. INTERPRETATION: ASCUS/EPITH. A --------- (test code = 60465) ABNORMALITY; SEE ---- BELOW ------ ------- EPITHELIAL CELL ABNORMALITY Atypical squamo us cells of undete rmined significance (ASC-US)------- ------ ------ ------ OTHER COMMENTS: (NOTE) Shift in eleni ra (test code = 8081) suggestiv e of bacterial vagin osis. CHIEF PHYSICAL THERAPIST: Radha Hubbard (test code = 8101) HARRIET Price(ASCP)IAC PATHOLOGIST Roman Ferguson INTERPRETATION BY: (test code = 8122) LOCATION: (test (NOTE) Specimens pr ocessed code = 96289) at [facility] thology Formerly [facility], [address] [facility] [address], Phone: , CLIA: [id number] interpreted at [facility] [place] [address] [place] Department Low r [facility], [place] [address], , CLIA: [id number] CPT: (test code = (NOTE) 86042, 876 24, 68691 8140) UNLESS OTHERWIS E INDICATED, COMP UTER AIDED AND CYTOTECHNOLOGIS T SCREENING PERFO RMED. The Pap test is a screening test with an inherent, bu t low probability of error. Your patient sh ould be reminded to consult you immediately if she experiences any suspicious sign s or symptoms, regar dless of her Pap test result. An alt ernate report format containing imag es or consolidated pr ior Pap history is available as applicable. HPV HIGH RISK IF ASC/LSIL, [id number] 18:55:53 Test Item Value Reference Range Interpretation Comments HPV HIGH RISK IF ASC/LSIL, THINPREP SEE BELOW (test code = 65398) HPV HIGH RISK WITH GENOTYPE, [id number] 18:54:03 Test Item Value Reference Range Interpretation Comments HPV HIGH RISK INTERP POSITIVE NEGATIVE A (test code = 94699) HPV 16 (test code = NEGATIVE 68580) HPV 18 (test code = NEGATIVE 27585) HPV, HR, OTHER POSITIVE A Testing meth odology is GENOTYPES (test code real-ti me PCR utilizing = 82318) hydrolysis prob es with the Deloris Yonis 4800 system. The winston t individually de tects genotypes 16 an d 18, as well as the oth er 12 high risk types (31,33,35,39,45 ,51,52,56 ,58,59,66,68). The expected result is negative. A neg ative result does not rule out the presence of HPV not included in the genotype set, a low leve l of infection or sp ecimen sampling error. UNLESS OTHERWISE INDIC ATED, ALL TESTING PERFORM ED [facility], [facility]. [address] [place] [id number] LABORATORY DIRE CTOR: SEN NGUYEN M.D. CLIA NUMBER [id number] [facility] [id number]/NG, NAAT, [id number] 15:42:27 Test Item Value Reference Range Interpretation Comments CHLAMYDIA, NAAT, NEGATIVE NEGATIVE A negative result does THINPREP (test code not excl ude low level = 04924) infection, specimensamplin g error, or collection erro r. Testing is performed wi th the Deloris Yonis 680 systems usingre al-time Polymerase Kamran n Reaction (PCR) method. GONORRHEA, NAAT, NEGATIVE NEGATIVE A negative result does THINPREP (test code not excl ude low level = 47505) infection, specimensamplin g error, or collection erro r. Testing is performed wi th the Deloris Yonis 680 systems usingre al-time Polymerase Kamran n Reaction (PCR) method. [id number] 05:32:50 Test Item Value Reference Range Interpretation Comments RPR RESULT (test code = NON-REACTIVE NON-REACTIVE 3501) RPR TITER (test code = 3500) NOT INDIC. TITER NOT INDIC. HIV 1/2 4TH GEN, RFLX [id number] 05:19:56 Test Item Value Reference Range Interpretation Comments HIV 1/2 4TH GEN, RFLX CONF (test NON-REACTIVE NON-REACTIVE code = 3514) HEPATITIS PANEL, [id number] 05:19:56 Test Item Value Reference Range Interpretation Comments HEPATITIS A IgM (test NON-REACTIVE NON-REACTIVE code = 25498) HEPATITIS B CORE IgM NON-REACTIVE NON-REACTIVE (test code = 4644) HEPATITIS B SURF AG NON-REACTIVE NON-REACTIVE (test code = 2739) HEPATITIS C ANTIBODY NON-REACTIVE NON-REACTIVE (test code = 4675) INTERPRETATION (NOTE) Hepatitis A HEPATITIS A: (test serology shows no code = 2552) evidence of acu te hepatitis A. INTERPRETATION (NOTE) Hepatitis B HEPATITIS B: (test serology shows no code = 88022) evidence of ac emilia hepatitis B and no indication of exposure to hepatitis B vir us in the previous si xto eight months. INTERPRETATION (NOTE) Hepatitis C HEPATITIS C: (test serology shows no code = 37205) evidence of ex posure to hepatitisC v irus at this time. I t can take up to 12 m onths after exposure tothe hepatitis C vir us for antibodies to become detectab le in the blood in ce rtain patients. UNLES S OTHERWISE INDIC ATED, ALL TESTING PERFORMED [facility], [facility]. [address] [place] [id number] [place] [address] MYKEL DIRECTOR: Floyd KIMIA NUMBER [id number] [facility] [place] [id number] Progress Notes Date/Time Note Provider Source 2022-10-01 13:15:00 [id number]:15:00Formatting of this note [facility] is different from the original.ROUTINE VISIT10/01/2022 1:41 PMSUBJECTIVECrystal Melissa Ayers is a 31 year old at 17w2d who presents for routine visit. She has no complaints today; denies contractions, loss of fluid, vaginal bleeding. Occasional ECHAVARRIA.Good movement.OBJECTIVEBP 109/72 | Pulse 82 | Temp 36.8 ?C (98.2 ?F) (Oral) | Resp 16 | Ht 5' 6" (1.676 m) | Wt 190 lb 3.2 oz (86.3 kg) | LMP 05/26/2022 (Exact Date) | SpO2 98% | No | BMI 30.70 kg/m? Physical Exam:Gen: A&Ox3, NADCV: RRR, Pulm: No labored breathingAbd: Soft, gravid, NTTP, ND, no rebound or guardingExt: No calf tendernessGU: deferredASSESSMENT: Hillary Ayers is a 31 year old at 17w2d who presents for routine visit. Patient Active Problem List Diagnosis Encounter for routine gynecological examination Irregular menstrual cycle Acute upper respiratory infection Rubella immune High-risk in first trimester Anxiety disorder affecting , antepartum Rh negative state in antepartum period PLAN1. Rh negative state in antepartum period--Rhogam @ 28 weeks2. High-risk in second trimester--Anatomy US ordered--Recommend OTC magnesium supplements for ECHAVARRIA in , normal BP today.- CONSULT MATERNAL MEDICINE ULTRASOUND Preferred Location: [place]. 17 weeks gestation of - ALPHA FETOPROTEIN-MATERNAL SER; Future- POCT URINALYSIS W/O SPECIFIC GRAVITY [id number] [id number]:18Progress [id number] for patient [address] Ij[id number] [id number]:[id number] .[id number]. [id number]
[2023-01-04 22:03] LABS: Absolute Lymphocytes (CBC) 3.2 K/uL (0.7-4.9); Hematocrit 33.2 % (36.0-45.0); Lymphocytes % 32.4 % (15.3-44.8); MCV 87.6 fL (80-100); MPV 8.6 fL (7.6-11.3); Platelets 226 thou/uL (152-406); RBC Red Blood Cell Count 3.79 M/uL (3.86-4.86); Specific Gravity 1.025 (1.005-1.030); Urine Bacteria <20 /HPF (<20); Urine Bilirubin NEGATIVE (Negative); Urine Blood Negative (Negative); Urine Clarity Extremely Turbid (Clear); Urine Color Yellow (Yellow); Urine Crystals Unidentified Few /HPF (None Seen); Urine Glucose NEGATIVE (Negative); Urine Mucus Slight /HPF (None Seen); Urine Protein 1+ (Negative); Urine RBC <5 /HPF (None Seen); Urine Urobilinogen 1+ (Normal)
[2023-01-04] MEDS ORDERED: METOCLOPRAMIDE 10 MG/2mL INJ ONE (22:09)
[2023-01-04] MEDS ORDERED: ACETAMINOPHEN 500 MG TAB ONE (22:09)
[2023-01-04] MEDS ORDERED: FAMOTIDINE 20 MG/2 ML VIAL IV ONE (22:09)
[2023-01-04] MEDS ORDERED: NA CHLORIDE 0.9% 1,000 ML ONE (22:09)
[2023-01-04 22:17] LABS: Albumin 2.6 g/dL (3.4-5.0); Bilirubin Total 0.4 mg/dL (0.2-1.0); Potassium 3.3 mEq/L (3.5-5.1); Protein, Total 6.6 g/dL (6.4-8.2)
--- NOTE | 2023-01-05 01:21 | ER ---
Nurse's Notes [facility] Name: Tal[facility] Age: 32 yrs Sex: Female : 1990 Arrival Date: 01/04/2023 Time: 21:00 Bed 20 Private MD: Diagnosis: Epigastric pain;Other cholelithiasis without obstruction;, discomfort of , Acute UTI in Presentation: 01/04 21:09 Chief complaint: Patient states: epigastric abdominal pain and generalized abdominal cm10 tightness onset 1.5 hrs ago. Pt states that she was watching TV when this started. Coronavirus screen: Vaccine status: Patient reports being unvaccinated. Client denies travel out of the [place] in the last 14 days. Ebola Screen: Patient denies travel to an Ebola-affected area in the 21 days before illness onset. No symptoms or risks identified at this time. Initial Sepsis Screen: Does the patient meet any 2 criteria? No. Patient's initial sepsis screen is negative. Does the patient have a suspected source of infection? No. Patient's initial sepsis screen is negative. Risk Assessment: Do you want to hurt yourself or someone else? Patient reports no desire to harm self or others. Onset of symptoms was January 04, 2023. 21:09 Method Of Arrival: Wheelchair cm10 21:09 Acuity: MILAGROS 3 cm10 EXERCISE PHYSIOLOGIST CERTIFIED: 21:53 Verified as6 Historical: - Allergies: 21:10 No Known Allergies; cm10 - PMHx: 21:10 Migraines; cm10 - PSHx: 21:10 None; cm10 - Immunization history:: Adult Immunizations unknown. - Social history:: Smoking status: Patient denies any tobacco usage or history of. - Family history:: not pertinent. Screenin:52 [facility] ED Fall Risk Assessment (Adult) Score/Fall Risk Level 0 - 2 = Low Risk. Abuse as6 screen: Denies threats or abuse. Denies injuries from another. Nutritional screening: No deficits noted. Tuberculosis screening: No symptoms or risk factors identified. Assessment: 22:04 General: Appears in no apparent distress. uncomfortable, Behavior is calm, cooperative. as6 Pain: Complains of pain in epigastric area Pain radiates to xiphoid area, mid-sternal area, right upper quadrant, left upper quadrant, right lower quadrant and left lower quadrant Quality of pain is described as burning, aching, crampy. Neuro: Level of Consciousness is awake, alert, obeys commands, Oriented to person, place, time, situation. Cardiovascular: Capillary refill < 3 seconds Patient's skin is warm and dry. Cardiovascular: JVD is absent. Respiratory: Respiratory effort is even, unlabored, Respiratory pattern is regular, symmetrical. GI: Abdomen is round distended, Reports lower abdominal pain, upper abdominal pain, indigestion, nausea. : No deficits noted. No signs and/or symptoms were reported regarding the genitourinary system. EENT: No deficits noted. No signs and/or symptoms were reported regarding the EENT system. Derm: Skin is intact, is healthy with good turgor. Musculoskeletal: Circulation, motion, and sensation intact. 23:35 Reassessment: Patient appears in no apparent distress at this time. No changes from [facility] previously documented assessment. Patient and/or family updated on plan of care and expected duration. Pain level reassessed. Patient is alert, oriented x 3, equal unlabored respirations, skin warm/dry/pink. 01/05 00:44 Reassessment: Patient appears in no apparent distress at this time. No changes from jw7 previously documented assessment. Patient and/or family updated on plan of care and expected duration. Pain level reassessed. Patient is alert, oriented x 3, equal unlabored respirations, skin warm/dry/pink. 01:30 Reassessment: Patient appears in no apparent distress at this time. Patient and/or jw7 family updated on plan of care and expected duration. Pain level reassessed. Patient is alert, oriented x 3, equal unlabored respirations, skin warm/dry/pink. Patient states feeling better. Patient states symptoms have improved. Vital Signs: 01/04 21:09 BP 119 / 62; Pulse 100; Resp 20; Temp 96.5(TE); Pulse Ox 100% ; Weight 88.45 kg (R); cm10 Height 5 ft. 6 in. ; Pain 9/10; 22:07 BP 106 / 57; Pulse 86; Resp 20 S; Pulse Ox 99% on R/A; jw7 23:35 BP 94 / 48; Pulse 72; Resp 18 S; Pulse Ox 100% on R/A; jw7 01/05 00:15 BP 113 / 66; Pulse 78; Resp 17 S; Pulse Ox 100% on R/A; jw7 01:00 BP 120 / 66; Pulse 73; Resp 16 S; Pulse Ox 100% on R/A; jw7 01:30 BP 120 / 60; Pulse 75; Resp 17 S; Pulse Ox 100% on R/A; jw7 01/04 21:09 Body Mass Index 31.47 (88.45 kg, 167.64 cm) cm10 01/04 21:09 Pain Scale: Adult cm10 ED Course: 01/04 21:03 Patient arrived in ED. ag3 21:08 Josh Rojo MD is Attending Physician. sp4 21:10 Triage completed. cm10 21:10 Arm band placed on Patient placed in an exam room, on a stretcher. cm10 21:36 Waits, KINSEY Gilliam is Primary Nurse. jw7 21:52 Bed in low position. Call light in reach. Side rails up X 1. as6 21:52 CBC with Diff Sent. as6 21:52 CMP Sent. as6 21:52 Lipase Sent. as6 21:52 Urinalysis w/ reflexes Sent. as6 21:52 Inserted saline lock: 20 gauge in right antecubital area, using aseptic technique. as6 Blood collected. 22:51 US Abdomen Limited In Process Unspecified. EDMS 22:52 OB Limited In Process Unspecified. EDMS 01/05 01:40 No provider procedures requiring assistance completed. IV discontinued, intact, jw7 bleeding controlled, No redness/swelling at site. Pressure dressing applied. 01:41 Provided Education on: discharge instructions and medication. jw7 Administered Medications: 01/04 22:04 Drug: metoCLOPramide IVP 10 mg IVP once; over 1 to 2 minutes Route: IVP; Site: right as6 antecubital; 01/05 01:42 Follow up: Response: No adverse reaction jw7 01/04 22:04 Drug: NS 0.9% IV 1000 ml IV at 1 bolus Per protocol; 1000 mL bolus Route: IV; Rate: 1 as6 bolus; Site: right antecubital; 01/05 01:42 Follow up: Response: No adverse reaction; IV Status: Completed infusion; IV Intake: jw7 1000ml 01/04 22:04 Drug: Famotidine IVP 20 mg IVP once; dilute with 10 mL 0.9% NaCl; give over 2 minutes as6 Route: IVP; Site: right antecubital; 01/05 01:42 Follow up: Response: No adverse reaction; Marked relief of symptoms jw7 01/04 22:04 Drug: Acetaminophen PO 1000 mg PO once Route: PO; as6 01/05 01:41 Follow up: Response: No adverse reaction; Marked relief of symptoms jw7 Medication: 01/04 21:53 VIS not applicable for this client. as6 Intake: 01/05 01:42 IV: 1000ml; Total: 1000ml. jw7 Outcome: 01:20 Discharge ordered by . sp4 01:40 Discharged to home ambulatory, jw7 01:40 Condition: stable 01:40 Discharge instructions given to patient, Instructed on discharge instructions, follow up and referral plans. medication usage, Demonstrated understanding of instructions, follow-up care, medications, Prescriptions given X 3, 01:41 Patient left the ED. jw7 Signatures: Dispatcher [employer] EDMS Cyn Vazquez ag3 Rasheed Baez RN RN as6 Tawana Clinton RN RN jw7 Josh Rojo MD MD sp4 Nelida Rivera RN RN cm10 Corrections: (The following items were deleted from the chart) 01:39 01:30 Reassessment: Patient appears in no apparent distress at this time. No changes jw7 from previously documented assessment. Patient and/or family updated on plan of care and expected duration. Pain level reassessed. Patient is alert, oriented x 3, equal unlabored respirations, skin warm/dry/pink. jw7
--- NOTE | 2023-01-05 01:21 | EDPHYS ---
Physician Documentation [facility] Name: Talita Hernandez Age: 32 yrs Sex: Female : 1990 Arrival Date: 01/04/2023 Time: 21:00 Bed 20 Private MD: ED Physician Josh Rojo HPI: 01/04 21:08 This 32 yrs old Unknown Female presents to ER via Unassigned with complaints of sp4 Abdominal Pain, 30 WEEKS PREGNAT, Chest Pain. 21:27 Patient is 32-year-old female 13 EGA 30 weeks 6 days presents with acute onset sp4 of chest pain, epigastric pain, nausea. Patient's MARINE WATER TENDER is Dr. Quintana at [facility] . Patient denied contractions, denied vaginal bleeding, denied vomiting, denied leakage of fluid, denied dysuria. She reports significant epigastric discomfort associated with nausea. Also some right upper abdominal pain. . MARINE WATER TENDER: 21:53 Verified as6 Historical: - Allergies: 21:10 No Known Allergies; cm10 - PMHx: 21:10 Migraines; cm10 - PSHx: 21:10 None; cm10 - Immunization history:: Adult Immunizations unknown. - Social history:: Smoking status: Patient denies any tobacco usage or history of. - Family history:: not pertinent. ROS: 01/05 01:16 Constitutional: Negative for fever, chills, and weight loss, sp4 Abdomen/GI: Positive for abdominal pain, Positive for epigastric pain, positive for nausea. Negative for vomiting, All other systems are negative, Exam: 01:16 Constitutional: This is a well developed, well nourished patient who is awake, alert, sp4 and in no acute distress. Head/Face: Normocephalic, atraumatic. Eyes: Pupils equal round and reactive to light, extra-ocular motions intact. Lids and lashes normal. Conjunctiva and sclera are not injected. Cornea within normal limits. Periorbital areas with no swelling, redness, or edema. ENT: Nares patent. No nasal discharge, no septal abnormalities noted. Tympanic membranes are normal and external auditory canals are clear. Oropharynx with no redness, swelling, or masses, exudates, or evidence of obstruction, uvula midline. Mucous membranes moist. Neck: Trachea midline, no thyromegaly or masses palpated, and no cervical lymphadenopathy. Supple, full range of motion without nuchal rigidity, or vertebral point tenderness. Chest/axilla: Normal chest wall appearance and motion. Nontender with no deformity. No lesions are appreciated. Cardiovascular: Regular rate and rhythm with a normal S1 and S2. No gallops, murmurs, or rubs. Normal PMI, no JVD. No pulse deficits. Respiratory: Lungs have equal breath sounds bilaterally, clear to auscultation and percussion. No rales, rhonchi or wheezes noted. No increased work of breathing, no retractions or nasal flaring. Abdomen/GI: Soft, non-tender, with normal bowel sounds. No distension or tympany. No guarding or rebound. No evidence of tenderness throughout. Back: No spinal tenderness. No costovertebral tenderness. Skin: Warm, dry with normal turgor. Normal color with no rashes, no lesions, and no evidence of cellulitis. MS/ Extremity: Pulses equal, no cyanosis. Neurovascular intact. Full, normal range of motion. Neuro: Awake and alert, GCS 15, oriented to person, place, time, and situation. Cranial nerves II-XII grossly intact. Motor strength 5/5 in all extremities. Sensory grossly intact. Psych: Awake, alert, with orientation to person, place and time. Behavior, mood, and affect are within normal limits Vital Signs: 01/04 21:09 BP 119 / 62; Pulse 100; Resp 20; Temp 96.5(TE); Pulse Ox 100% ; Weight 88.45 kg (R); cm10 Height 5 ft. 6 in. ; Pain 9/10; 22:07 BP 106 / 57; Pulse 86; Resp 20 S; Pulse Ox 99% on R/A; jw7 23:35 BP 94 / 48; Pulse 72; Resp 18 S; Pulse Ox 100% on R/A; 01/05 00:15 BP 113 / 66; Pulse 78; Resp 17 S; Pulse Ox 100% on R/A; 7 01:00 BP 120 / 66; Pulse 73; Resp 16 S; Pulse Ox 100% on R/A; jw7 01:30 BP 120 / 60; Pulse 75; Resp 17 S; Pulse Ox 100% on R/A; 01/04 21:09 Body Mass Index 31.47 (88.45 kg, 167.64 cm) cm10 01/04 21:09 Pain Scale: Adult cm10 MDM: 01/04 21:22 Patient medically screened. sp4 01/05 00:08 ED course: US - COMPARISON: None TECHNIQUE: Real-time sonography of the fetus was sp4 performed. FINDINGS: Single viable fetus is identified. Heart rate was 137 bpm. Posterior placenta with no evidence for placenta previa. Amniotic fluid volume index is 7.4 cm. Cervix appears closed. Femur length measures 5.8 cm corresponding with a age of 30 weeks 3 days. anatomy not evaluated at this time. No abnormality maternal adnexal regions bilaterally. IMPRESSION: Limited study. Single viable 30 week history intrauterine fetus. . ED course: US RUQ - CLINICAL HISTORY: 32 years Female, RUQ pain, eval gallbladder TECHNIQUE: Real-time transabdominal imaging of the gallbladder was performed. COMPARISON: None. FINDINGS: GALLBLADDER: Multiple shadowing gallstones. No abnormal wall thickening or pericholecystic fluid. Sonographic Lou sign: Negative. CBD/BILE DUCT: The common bile duct is not dilated, measuring 2 mm. No intra- or extrahepatic ductal dilatation. OTHER: Noncontributory. IMPRESSION: 1. Cholelithiasis without sonographic evidence for cholecystitis.. 01:17 Differential diagnosis: anxiety, cholecystitis, Cholelithiasis costochondritis, sp4 esophagitis, gastritis. Data reviewed: vital signs, nurses notes, lab test result(s), radiologic studies, ultrasound. ED course: Patient has mild UTI with positive leukocyte esterase. Ultrasound right upper quadrant positive for cholelithiasis without signs of cholecystitis. OB ultrasound reveals single viable 30-week intrauterine fetus. age 30 weeks 3 days. Cervix appears closed, no signs of premature labor reported. Amniotic fluid volume index is 7.4. Patient's symptoms have completely resolved after medications. She is stable for discharge home. Will provide Macrobid for mild UTI, Pepcid daily, Reglan as needed nausea, and will advise Tylenol as needed. . 01/04 21: Order name: CBC with Diff; Complete Time: 00:06 sp4 01/04 21: Order name: CMP; Complete Time: 00:06 sp4 01/04 21: Order name: Lipase; Complete Time: 00:06 sp4 10/23 21:26 Order name: Urinalysis w/ reflexes; Complete Time: 00:06 sp4 01/04 21:26 Order name: US Abdomen Limited sp4 01/04 22:52 Order name: OB Limited EDMS 01/04 21:26 Order name: IV Saline Lock; Complete Time: 21:52 sp4 01/04 21:26 Order name: Labs collected and sent; Complete Time: 21:52 sp4 Administered Medications: 01/04 22:04 Drug: metoCLOPramide IVP 10 mg IVP once; over 1 to 2 minutes Route: IVP; Site: right as6 antecubital; 01/05 01:42 Follow up: Response: No adverse reaction jw7 01/04 22:04 Drug: NS 0.9% IV 1000 ml IV at 1 bolus Per protocol; 1000 mL bolus Route: IV; Rate: 1 as6 bolus; Site: right antecubital; 01/05 01:42 Follow up: Response: No adverse reaction; IV Status: Completed infusion; IV Intake: jw7 1000ml 01/04 22:04 Drug: Famotidine IVP 20 mg IVP once; dilute with 10 mL 0.9% NaCl; give over 2 minutes as6 Route: IVP; Site: right antecubital; 01/05 01:42 Follow up: Response: No adverse reaction; Marked relief of symptoms jw7 01/04 22:04 Drug: Acetaminophen PO 1000 mg PO once Route: PO; as6 01/05 01:41 Follow up: Response: No adverse reaction; Marked relief of symptoms jw7 Disposition Summary: 01/05/23 01:20 Discharge Ordered Problem: new sp4 Symptoms: have improved sp4 Condition: Stable sp4 Diagnosis - Epigastric pain sp4 - Other cholelithiasis without obstruction sp4 - , discomfort of , Acute UTI in sp4 Followup: sp4 - With: Private Physician - When: 7 - 10 days - Reason: Recheck today's complaints Discharge Instructions: - Discharge Summary Sheet sp4 - Cholelithiasis, [id number] sp4 Forms: - Work release form jw7 - Patient Portal Instructions sp4 Prescriptions: - Reglan 10 mg Oral tablet - take 1 tablet ORAL route every 8 hours PRN nausea; 30 tablet; Refills: 0, sp4 Product Selection Permitted - Macrobid 100 mg Oral Capsule - take 1 capsule ORAL route every 12 hours for 10 days; 20 capsule; Refills: 0, sp4 Product Selection Permitted - Pepcid 20 mg Oral tablet - take 1 tablet ORAL route once daily; 30 tablet; Refills: 0, Product Selection sp4 Permitted Signatures: Dispatcher [employer] Rasheed Rosas RN RN as6 Josh Rojo MD MD sp4 Nelida Rivera RN RN cm10 Tawana Clinton RN jw7 Corrections: (The following items were deleted from the chart) 01/04 22:52 21:28 OB Complete+US.RAD.BRZ ordered. THERESANH ANGELA
--- NOTE | 2023-01-05 10:20 | RAD REPORT ---
EXAM DESCRIPTION: US - Abdomen Exam Limited - 01/04/2023 10:50 pm CLINICAL HISTORY: 32 years Female, RUQ pain, eval gallbladder TECHNIQUE: Real-time transabdominal imaging of the gallbladder was performed. COMPARISON: None. FINDINGS: GALLBLADDER: Multiple shadowing gallstones. No abnormal wall thickening or pericholecystic fluid. Sonographic Lou sign: Negative. CBD/BILE DUCT: The common bile duct is not dilated, measuring 2 mm. No intra- or extrahepatic ducta l dilatation. OTHER: Noncontributory. IMPRESSION: 1. Cholelithiasis without sonographic evidence for cholecystitis. Electronically signed by: Yazan Osorio MD 01/04/2023 11:22 PM CDT Due to temporary technical issues with the PACS/Fluency reporting system, reports are being signed by the in house radiologists without review as a courtesy to insure prompt reporting. The interpreting radiologist is fully responsible for the content of the report.
--- NOTE | 2023-01-05 10:29 | RAD REPORT ---
EXAM DESCRIPTION: US - OB Limited - 01/04/2023 10:51 pm CLINICAL HISTORY: 32 years Female ABD CRAMPING, COMPARISON: None TECHNIQUE: Real-time sonography of the fetus was performed. FINDINGS: Single viable fetus is identified. Heart rate was 137 bpm. Posterior placenta with no evid ence for placenta previa. Amniotic fluid volume index is 7.4 cm. Cervix appears closed. Femur length measures 5.8 cm corresponding with a age of 30 weeks 3 days. anatomy not evaluated at this time. No abnormality maternal adnexal regions bilaterally. IMPRESSION: Limited study. Single viable 30 week history intrauterine fetus. Electronically signed by: Zoila Gutierrez MD 01/04/2023 11:26 PM CDT Due to temporary technical issues with the PACS/Fluency reporting system, reports are being signed by the in house radiologists without review as a courtesy to insure prompt reporting. The interpreting radiologist is fully responsible for the content of the report.
== END 2023-01-05 01:41 | disposition home or self-care (01) ==
LOC: ER 21:00
DX: O99.613 Diseases of the digestive system complicating pregnancy, third trimester (principal); K80.80 Other cholelithiasis without obstruction; O23.43 Unspecified infection of urinary tract in pregnancy, third trimester; N39.0 Urinary tract infection, site not specified; Z3A.30 30 weeks gestation of pregnancy
CPT/HCPCS: 85025; 81001; 36415; 83690; 80053; 76705; 76815; J2765; J7030

== ENCOUNTER → 2023-03-09 | Emergency (ER) | payer OTHER ==
[~2023-03-09] MED LIST: IBUPROFEN 200 MG TAB PO ONE
--- OUTSIDE RECORDS SUMMARY | 2023-03-09 18:51 | XMS REPORT | Continuity of Care Document ---
Author Name Unknown Address [address] [facility] [address]. [address] [place] [id number] [facility] thconnect Address [address] [facility] [address]. [address] [place] [address] Care Team Providers Care Dealer Sales Rep Name Role Phone PCP, PATIENT DOES NOT HAVE A Primary Care Physic suresh Unavailable [email or web address]_S Attending Clinician KATHERIN Argueta Attending Clinician KATHERIN Son Attending Clinician Chelly [facility] Attending Clinician ANN Siu Attending Clinician Ann Fisher DO Attending Clinician [phone] Doctor Unassigned, [place] Attending Clinician U navailable JAMEEL_[email or web address]_S Admitting Clinician Chas gomez Payers Payer Name Policy Type Policy Number Effective Date Expirati on Date Source Problems Condition Name Condition Details Condition Category Status Onset Date Resolution Date Last Treatment Date Treating Clinician Comments Source High-risk in first trimester High-risk in first trimester Disease Active 07-31 00:00: 00 [facility] Anxiety disorder affecting , antepartum Anxiety disorder affecting , antepartum Disease Active 07-31 00:00: 00 [facility] Allergies, Adverse Reactions, Alerts Allergy Name Allergy Type Status Severity Reaction(s) Onset Date Inactive Date Treating Clinician Comments Source NO KNOWN ALLERGIE S Drug Class Active [facility] Social History Social Habit Start Date Stop Date Quantity Comments Source ASSERTION 2022-06-16 00:00:00 [facility] Alcohol intake 2022-08-28 00:00:00 2022-08-28 00:00:00 Ex-drinker (finding) [facility] Exposure to SARS-CoV-2 (event) 2022-08-16 00:00:00 2022-08-26 11:37:00 Not sure [facility] Tobacco use and exposure 2022-07-31 00:00:00 2022-07-31 00:00:00 Smokeless tobacco non-user [facility] Sex Assigned At 1990 00:00:00 1990 00:00:00 [facility] Smoking Status Start Date Stop Date Source Never smoked tobacco [facility] Medications Ordered Medication Name Filled Medication Name Start Date Stop Date Current Medication? Ordering Clinician Indication Dosage Frequency Signature (SIG) Comments Components Source PNV no.95/castillo us fum/folic ac ( ORAL) 08-28 13:11: 10 Yes Take by mouth. [facility] PNV no.95/castillo us fum/folic ac ( ORAL) 08-28 13:11: 10 Yes Take by mouth. [facility] acetaminoph en (TYLENOL) tablet 650 mg 08-21 20:15: 00 08-21 20:14 :00 No 650mg 650 mg, Oral, ONCE, 1 dose, On Wed08/21/22 at 1515, ARLINE [facility] Vital Signs Vital Name Observation Time Observation Value Comments S ource Systolic blood pressure 2022-08-28 18:09:00 122 mm[Hg] [facility] Diastolic blood pressure 2022-08-28 18:09:00 73 mm[Hg] [facility] Heart rate 2022-08-28 18:09:00 78 /min [facility] Body temperature 2022-08-28 18:09:00 36.83 Alyssa [facility] Body height 2022-08-28 18:09:00 167.6 cm [facility] Body weight 2022-08-28 18:09:00 86.365 kg [facility] BMI 2022-08-28 18:09:00 30.73 kg/m2 [facility] Systolic blood pressure 2022-08-21 19:20:00 123 mm[Hg] [facility] Diastolic blood pressure 2022-08-21 19:20:00 77 mm[Hg] [facility] Heart rate 2022-08-21 19:20:00 85 /min [facility] Body temperature 2022-08-21 19:20:00 37.28 Alyssa [facility] Respiratory rate 2022-08-21 19:20:00 16 /min [facility] Body height 2022-08-21 19:20:00 167.6 cm [facility] Body weight 2022-08-21 19:20:00 83.915 kg [facility] BMI 2022-08-21 19:20:00 29.86 kg/m2 [facility] Oxygen saturation in Arterial blood by Pulse oximetry 2022-08-21 19:20:00 98 /min [facility] Systolic blood pressure 2022-07-31 15:43:00 99 mm[Hg] [facility] Diastolic blood pressure 2022-07-31 15:43:00 63 mm[Hg] [facility] Heart rate 2022-07-31 15:43:00 67 /min [facility] Respiratory rate 2022-07-31 15:43:00 18 /min [facility] Body height 2022-07-31 15:43:00 167.6 cm [facility] Body weight 2022-07-31 15:43:00 86.637 kg [facility] BMI 2022-07-31 15:43:00 30.83 kg/m2 [facility] Procedures Procedure Date / Time Performed Performing Clinician Source CBC WITH DIFF 2022-08-28 19:53:00 Iker Pena [facility] POCT URINALYSIS W/O SPECIFIC GRAVITY 2022-08-28 00:00:00 Katherin Pena [facility] EKG-12 LEAD 2022-08-21 21:04:23 [facility]ENEFITS 2022-08-21 19:55:35 Docto r Unassigned, [place] [facility] TROPONIN I 2022-08-21 19:36:00 [facility] COMP. METABOLIC PANEL ([id number]) 2022-08-21 19:36:00 Ann Das [facility] CBC WITH DIFF 2022-08-21 19:36:00 Ann Das U [facility] NOTICE OF PRIVACY PRACTICES 2022-08-21 19:05:14 Doctor Unassigned, [place] [facility] CONSENT/REFUSAL FOR DIAGNOSIS AND TREATMENT 2022-08-21 19:04:59 Doctor Unassigned, [place] [facility] US OB TRANSVAGINAL 2022-07-31 16:11:03 Celeste Pena [facility] AUTHORIZATION TO RELEASE PHI TO [facility] 2022-07-31 05:01:00 Doctor Unassigned, [place] [facility] POCT TEST 2022-07-31 00:00:00 Katherin Pena [facility] POCT URINALYSIS W/O SPECIFIC GRAVITY 2022-07-31 00:00:00 Katherin Pena [facility] Encounters Start Date/Time End Date/Time Encounter Type Admission Type Attending [facility] Facility Care Department Encounter ID Source 2023-01-13 00:00:00 2023-01-13 00:00:00 Outpatient GC_GCBZW_Ka diyala_S [facility] [id number] [facility] 2022-08-28 14:45:00 2022-08-28 15:00:00 Social Work Administrator Visit Pob, Adc Lab Main Becca Saucedosol [facility] [id number] 350.1.13.10 4.2.7.2.686 [id number] [facility] 2022-08-28 13:00:00 2022-08-28 13:32:37 Outpatient R KATHERIN SAUCEDO [facility] [id number] [facility] 2022-08-28 13:00:00 2022-08-28 13:15:00 Routine Visit Shahab karla Katherin [facility] 1.20.114 350.1.13.10 4.2.7.2.686 [id number] [facility] 2022-08-21 14:23:00 2022-08-21 16:23:00 Emergency X ANN DAS [facility] ERT [id number] [facility] 2022-08-21 14:23:00 2022-08-21 16:23:00 Emergency Ann Das [facility] 1.2840.114 350.1.13.10 4.2.7.2.686 [id number] [facility] 2022-08-21 00:00:00 2022-08-21 00:00:00 Orders Only Doctor Unassigned, [place] [facility] 1.2840.114 350.1.13.10 4.2.7.2.686 [id number] [facility] 2022-08-21 00:00:00 2022-08-21 00:00:00 Patient Secure Msg HuertasJanelBethany karla [facility] 1.20.114 350.1.13.10 4.2.7.2.686 [id number] [facility] 2022-08-21 00:00:00 2022-08-21 00:00:00 [facility] 1.2840.114 350.1.13.10 4.2.7.2.686 [id number] [facility] 2022-07-31 10:30:00 2022-07-31 11:16:56 Initial Visit Katherin Saucedo [facility] 1.840.114 350.1.13.10 4.2.7.2.686 [id number] [facility] 2022-07-31 10:30:00 2022-07-31 11:16:56 Outpatient R SHAHAB Molina, KATHERIN [facility] [id number] [facility] 2022-07-31 00:00:00 2022-07-31 00:00:00 Orders Only Doctor Unassigned, [place] [facility] 1.840.114 350.1.13.10 4.2.7.2.686 [id number] [facility] 2022-05-06 17:10:15 2022-05-06 17:10:15 Outpatient [facility] [id number] Maurilio Farias 2022-04-03 13:43:03 2022-04-03 13:43:03 Outpatient [facility] [id number] Maurilio Farias Results Test Description Test Time Test Comments Results Result Co mments Source [facility] URINALYSIS W/O SPECIFIC [id number] 18:13:00* Test Item Value Reference Range Interpretation Comme nts POCT PH U (test code = 3254) n/a 5-8 POCT U LEUK EST (test code = 3263) n/a Negative - Negative POCT U NIT (test code = 3262) n/a Negative - Negati ve POCT U PROT (test code = 3259) Negative Negative - Negat ethan POCT U GLU (test code = 3256) Normal Negative - Negati ve POCT U KETONE (test code = 3258) n/a Negative - Neg ative POCT U BLD (test code = 3257) n/a Negative - Negati ve [facility] [id number] 16:15:00* Test Item Value Reference Range Interpretation Comme nts POCT PREG (test code = 1605) Positive On board controls acceptable with C Line (test code = 3574) Yes POCT PREG LOT # (test code = 3575) POCT PREG TEST DATE ( test code = 3576) [facility] W/O SPECIFIC [id number] 16:15:00* Test Item Value Reference Range Interpretation Comme nts POCT PH U (test code = 3254) N/A 5-8 POCT U LEUK EST (test code = 3263) N/A Negative - Negative POCT U NIT (test code = 3262) N/A Negative - Negati ve POCT U PROT (test code = 3259) Trace Negative - Negat ethan POCT U GLU (test code = 3256) Negative Negative - Negati ve POCT U KETONE (test code = 3258) N/A Negative - Neg ative POCT U BLD (test code = 3257) N/A Negative - Negati ve [facility] [id number] 16:12:47* Test Item Value Reference Range Interpretation Comme nts DIAGNOSIS: (test code = 8200) (NOTE) A) Curettage - EndocervixInterval phase endometrium. Endocervical tissue not present. B) Biopsy - Cervix 10:00No diagnostic abnormality. COMMENTS: (test code = 8205) (NOTE) The previously r eported abnormal Pap (accession #[id number]) isreviewed. The atypical cells identified on the Pap slide are notrepresented on the biopsy material. MICROSCOPIC DESCRIPTION: (test code = 8210) (NOTE) A) This specimen is composed of late proliferative/earlysecretory (interval pattern) endometrium. Endocervical tissue isnot present. The specimen is negative for dysplasia, polyp,hyperplasia, and malignancy. B) This specimen includes fragments of squamous epitheliumadmixed with endocervical cells and portions of endometrium. Thespecimen is negative for dysplasia and malignancy. An intacttransformation zone component is not represented. CLINICAL DATA: (test code = 8401) (NOTE) Not specified GROSS DESCRIPTION: (test code = 8220) (NOTE) A) SPECIMEN L ABELED: EndocervixSIZE/WEIGHT: 0.6x0.3x0.2 cm AggregateSPECIMEN COLOR: TanNUMBER OF TISSUE PIECES: multipleSUBMITTED IN CASSETTE(S): [id number]: FormalinCOMMENTS:Irregularly shaped tissue fragments. Filtered and entirelysubmitted. B) SPECIMEN LABELED: Cervix 10:00SIZE/WEIGHT: 0.3x0.3x0.2 cm AggregateSPECIMEN COLOR: TanNUMBER OF TISSUE PIECES: multipleSUBMITTED IN CASSETTE(S): [id number]: FormalinCOMMENTS:Irregularly shaped tissue fragments with mucus. Filtered andentirely submitted. PATHOLOGIST: (test code = 8250) (NOTE) Key Torres Specimens processed at [facility], [address] [place], [place] [address], , CLIA: [id number] interpreted at [facility], [address] [place] [address], , CLIA: [id number] CPT: (test code = 8400) (NOTE) [id number] [facility] has important pathology staff changes effective 05/13/2022. New pathology staff will provide uninterrupted, excellent patient care and clinical consultation. See URL: [email or web address]. UNLESS OTHERWISE INDICATED, ALL TESTING PERFORMED AT [facility], [facility]. [address] [place] [address] DECK MECHANIC: SEN KONG M.D. CLIA NUMBER [id number] [facility] [place]. [id number] PAP TEST, THINPREP, [id number] 18:55:53* Test Item Value Reference Range Interpretation Comments SOURCE: (test code = 8001) Unspecified SLIDES: (test code = 8011) 1 LMP: (test code = 8021) NOT GIVEN SPECIMEN ADEQUACY: (test code = 64650) (NOTE) Satisfactory for evaluation. Endocervical cells/transformation zone component present. INTERPRETATION: (test code = 03583) ASCUS/EPITH. ABNORMALITY; SEE BELOW A - ------- EPITHELIAL CELL ABNORMALITY Atypical squamous cells of undetermined significance (ASC-US) OTHER COMMENTS: (test code = 8081) (NOTE) Shift in ally a suggestive of bacterial vaginosis. K9 HANDLER: (test code = 8101) HARRIET Ruiz(ASCP)[facility] PATHOLOGIST INTERPRETATION BY: (test code = 8122) Roman Ferguson LOCATION: (test code = 72386) (NOTE) Specimens proces sed at [facility], [address] [place] [address], , CLIA: [id number] interpreted at [facility], [address] [place] [address],Pathology Department Lower Level, [facility] [place] [address], , CLIA: [id number] CPT: (test code = 8140) (NOTE) 43436, [address], 88 141 UNLESS OTHERWISE INDICATED, COMPUTER AIDED AND K9 HANDLER SCREENING PERFORMED. The Pap test is a screening test with an inherent, but low probability of error. Your patient should be reminded to consult you immediately if she experiences any suspicious signs or symptoms, regardless of her Pap test result. An alternate report format containing images or consolidated prior Pap history is available as applicable. HPV HIGH RISK IF ASC/LSIL, [id number] 18:55:53* Test Item Value Reference Range Interpretation Comme nts HPV HIGH RISK IF ASC/LSIL, T HINPREP (test code = 16453) SEE BELOW HPV HIGH RISK WITH GENOTYPE, [id number] 18:54:03* Test Item Value Reference Range Interpretation Comme nts HPV HIGH RISK INTERP (test code = 20477) POSITIVE NEGATIVE A HPV 16 (test code = 70002) NEGATIVE HPV 18 (test code = 47854) NEGATIVE HPV, HR, OTHER GENOTYPES (test code = 71041) POSITIVE A Testing methodol ogy is real-time PCR utilizing hydrolysis probes with the Deloris Yonis 4800 system. The test individually detects genotypes 16 and 18, as well as the other 12 high risk types (31,33,35,39,45,51,52,56 ,58,59,66,68). The expected result is negative. A negative result does not rule out the presence of HPV not included in the genotype set, a low level of infection or specimen sampling error. UNLESS OTHERWISE INDICATED, ALL TESTING PERFORMED [facility], [facility]. [address] [place] [address] DECK MECHANIC: SEN KONG M.D. [place] NUMBER [id number] [facility] [place]. [id number] CT/NG, NAAT, [id number] 15:42:27* Test Item Value Reference Range Interpretation Comme nts CHLAMYDIA, NAAT, THINPREP (test code = 29001) NEGATIVE NEGATIVE A negative resul t does not exclude low level infection, specimensampling error, or collection error. Testing is performed with the Deloris Yonis 6800/8800 systems usingreal-time Polymerase Chain Reaction (PCR) method. GONORRHEA, NAAT, THINPREP (test code = 29960) NEGATIVE NEGATIVE A negative resul t does not exclude low level infection, specimensampling error, or collection error. Testing is performed with the Deloris Yonis 6800/8800 systems usingreal-time Polymerase Chain Reaction (PCR) method. [id number] 05:32:50* Test Item Value Reference Range Interpretation Comme nts RPR RESULT (test code = 3501) NON-REACTIVE NON-REACTIVE RPR TITER (test code = 3500) NOT INDIC. TITER NOT INDIC. HIV 1/2 4TH GEN, RFLX [id number] 05:19:56* Test Item Value Reference Range Interpretation Comme nts HIV 1/2 4TH GEN, RFLX CONF ( test code = 3514) NON-REACTIVE NON-REACTIVE HEPATITIS PANEL, [id number] 05:19:56* Test Item Value Reference Range Interpretation Comme nts HEPATITIS A IgM (test code = 36136) NON-REACTIVE NON-REACTIVE HEPATITIS B CORE IgM (test code = 4644) NON-REACTIVE NON-REACTIVE HEPATITIS B SURF AG (test code = 2739) NON-REACTIVE NON-REACTIVE HEPATITIS C ANTIBODY (test code = 4675) NON-REACTIVE NON-REACTIVE INTERPRETATION HEPATITIS A: (test code = 2552) (NOTE) Hepatitis A sero logy shows no evidence of acute hepatitis A. INTERPRETATION HEPATITIS B: (test code = 27352) (NOTE) Hepatitis B sero logy shows no evidence of acute hepatitis B andno indication of exposure to hepatitis B virus in the previous kel[place] eight months. INTERPRETATION HEPATITIS C: (test code = 27833) (NOTE) Hepatitis C sero logy shows no evidence of exposure to hepatitisC virus at this time. It can take up to 12 months after exposure tothe hepatitis C virus for antibodies to become detectable in the blood in certain patients. UNLESS OTHERWISE INDICATED, ALL TESTING PERFORMED [facility] [address] [place] [address] DECK MECHANIC: SEN KONG M.D. CLIA NUMBER [id number] [facility] [place]. [id number]
--- NOTE | 2023-03-09 20:24 | ER ---
Nurse's Notes [facility] Name: Talita Hernandez Age: 32 yrs Sex: Female : 1990 Arrival Date: 03/09/2023 Time: 18:47 Bed DIS3 Private MD: Diagnosis: SARS-associated coronavirus as the cause of diseases classified elsewhere Presentation: 03/09 19:07 Chief complaint: Patient states: I've been running fever with a cough, runny nose, and vc1 body aches for about 3 days. Coronavirus screen: Vaccine status: Patient reports being unvaccinated. Client denies travel out of the [place] in the last 14 days. chills, congestion, cough unrelated to allergies, fatigue, fever, muscle pain, Client presents with at least one sign or symptom that may indicate coronavirus-19. Ebola Screen: Patient negative for fever greater than or equal to 101.5 degrees Fahrenheit, and additional compatible Ebola Virus Disease symptoms Patient denies exposure to infectious person. Patient denies travel to an Ebola-affected area in the 21 days before illness onset. No symptoms or risks identified at this time. Initial Sepsis Screen: Does the patient meet any 2 criteria? HR > 90 bpm. No. Patient's initial sepsis screen is negative. Does the patient have a suspected source of infection? No. Patient's initial sepsis screen is negative. Risk Assessment: Do you want to hurt yourself or someone else? Patient reports no desire to harm self or others. Onset of symptoms was March 06, 2023. 19:07 Method Of Arrival: Ambulatory vc1 19:07 Acuity: MILAGROS 4 vc1 Triage Assessment: 19:10 General: Appears in no apparent distress. uncomfortable, ill, Behavior is calm, vc1 cooperative, appropriate for age. Pain: Complains of pain in generalized body aches. EENT: Nares with drainage noted. EENT: Reports nasal congestion. Neuro: Level of Consciousness is awake, alert, obeys commands, Oriented to person, place, time, situation, none Denies headache. Cardiovascular: Capillary refill < 3 seconds Patient's skin is warm and dry. Respiratory: Reports cough that is non-productive, persistent Airway is patent Respiratory effort is even, unlabored, Respiratory pattern is regular, symmetrical, Breath sounds are clear bilaterally. GI: No deficits noted. No signs and/or symptoms were reported involving the gastrointestinal system. : No deficits noted. No signs and/or symptoms were reported regarding the genitourinary system. Derm: Skin temperature is hot. Musculoskeletal: No deficits noted. No signs and/or symptoms reported regarding the musculoskeletal system. NANOTECHNOLOGIST: 19:19 LMP N/A - Recent , Not vc1 Historical: - Allergies: 19:10 No Known Allergies; vc1 - Home Meds: 19:10 None [Active]; vc1 - PMHx: 19:10 Migraines; vc1 - PSHx: 19:10 None; vc1 - Immunization history:: Client reports receiving the 2nd dose of the Covid vaccine, Flu vaccine is up to date. - Social history:: Smoking status: Patient denies any tobacco usage or history of. Screenin:29 [facility] ED Fall Risk Assessment (Adult) History of falling in the last 3 months, rv including since admission No falls in past 3 months (0 pts) Score/Fall Risk Level 0 - 2 = Low Risk Oriented to surroundings, Maintained a safe environment, Educated pt \T\ family on fall prevention, incl call for assistance when getting out of bed, Assessed \T\ reinforced patient's understanding of fall precautions. Abuse screen: Denies threats or abuse. Denies injuries from another. Nutritional screening: No deficits noted. Tuberculosis screening: No symptoms or risk factors identified. Assessment: 20:28 Reassessment: Patient appears in no apparent distress at this time. Patient and/or rv family updated on plan of care and expected duration. Pain level reassessed. Patient is alert, oriented x 3, equal unlabored respirations, skin warm/dry/pink. Vital Signs: 19:07 BP 119 / 70; Pulse 119; Resp 18; Temp 100.1(O); Pulse Ox 100% ; Weight 83.91 kg; Height vc1 5 ft. 6 in. ; Pain 0/10; 20:10 Pulse 97; Resp 17; Temp 97.9(O); Pulse Ox 99% ; vc1 19:07 Body Mass Index 29.86 (83.91 kg, 167.64 cm) vc1 19:07 Pain Scale: Adult vc1 Gloria Coma Score: 20:28 Eye Response: spontaneous(4). Motor Response: obeys commands(6). Verbal Response: rv oriented(5). Total: 15. ED Course: 18:49 Patient arrived in ED. mr 18:51 Sharon Li FNP-C is [facility]. kb 18:52 Kade Sanchez MD is Attending Physician. kb 19:10 Triage completed. vc1 19:10 Arm band placed on right wrist. vc1 19:19 COVID-19 SARS RT PCR Sent. vc1 19:19 Flu Sent. vc1 20:29 Patient has correct armband on for positive identification. Cardiac monitoring not rv applicable on this patient. 20:29 No provider procedures requiring assistance completed. Patient did not have IV access rv during this emergency room visit. Administered Medications: 19:19 Drug: Ibuprofen PO 600 mg PO once Route: PO; vc1 20:11 Follow up: Response: No adverse reaction; Marked relief of symptoms; Temperature is vc1 decreased Medication: 20:29 VIS not applicable for this client. rv Outcome: 20:23 Discharge ordered by MD. kb 20:29 Discharged to home ambulatory, rv 20:29 Condition: good 20:29 Discharge instructions given to patient, Instructed on discharge instructions, follow up and referral plans. Demonstrated understanding of instructions, follow-up care, 20:29 Patient left the ED. rv Signatures: Sharon Li FNP-C CHAPLAIN-Aditi Cowan, Reg Reg mr Raulito Martinez, RN RN rv Marcy Marie RN RN vc1
--- NOTE | 2023-03-09 20:24 | EDPHYS ---
Physician Documentation [facility] Name: Talita Hernandez Age: 32 yrs Sex: Female : 1990 Arrival Date: 03/09/2023 Time: 18:47 Bed DIS3 Private MD: ED Physician Kade Sanchez HPI: 03/09 20:18 This 32 yrs old Female presents to ER via Ambulatory with complaints of Flu Symptoms. kb 21:16 Patient is a 32-year-old female who presents for cough, congestion, fever, body aches kb for 3 days.. 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 - Social history:: Smoking status: Patient denies any tobacco usage or history of. ROS: 21:16 Abdomen/GI: Negative for abdominal pain, nausea, vomiting, diarrhea, and constipation, kb 21:16 Constitutional: Positive for body aches, chills, fatigue, fever, malaise, 21:16 ENT: Positive for rhinorrhea, sinus congestion, 21:16 Respiratory: Positive for cough, 21:16 All other systems are negative, Exam: 21:16 Constitutional: This is a well developed, well nourished patient who is awake, alert, kb and in no acute distress. Head/Face: Normocephalic, atraumatic. ENT: Moist Mucous membranes Cardiovascular: Regular rate Respiratory: Respirations even and unlabored. No increased work of breathing. Talking in full sentences Abdomen/GI: Soft, non-tender. No distention Skin: Warm, dry with normal turgor. Normal color. MS/ Extremity: Pulses equal, no cyanosis. Neurovascular intact. Full, normal range of motion. Neuro: Awake and alert, GCS 15, oriented to person, place, time, and situation. Moves all extremities. Normal gait. Vital Signs: 19:07 BP 119 / 70; Pulse 119; Resp 18; Temp 100.1(O); Pulse Ox 100% ; Weight 83.91 kg; Height vc1 5 ft. 6 in. ; Pain 0/10; 20:10 Pulse 97; Resp 17; Temp 97.9(O); Pulse Ox 99% ; vc1 19:07 Body Mass Index 29.86 (83.91 kg, 167.64 cm) vc1 19:07 Pain Scale: Adult vc1 Gloria Coma Score: 20:28 Eye Response: spontaneous(4). Motor Response: obeys commands(6). Verbal Response: rv oriented(5). Total: 15. MDM: 18:52 Patient medically screened. kb 21:16 Differential diagnosis: Flu, COVID, URI, pneumonia. Data reviewed: vital signs, nurses kb notes. I considered the following discharge prescriptions or medication management in the emergency department I discussed and recommended Over The Counter medications, Antibiotics: At this time antibiotics are not recommended, Antivirals: At this time, antivirals are not recommended. Test considered but Not performed: X-ray: Chest x-ray considered but lungs clear bilaterally, respirations even unlabored, oxygen saturation 99% on room air.. Counseling: I had a detailed discussion with the patient and/or guardian regarding the historical points, exam findings, and any diagnostic results supporting the discharge/admit diagnosis, lab results, the need for outpatient follow up, a family practitioner, to return to the emergency department if symptoms worsen or persist or if there are any questions or concerns that arise at home. 03/09 19:12 Order name: Flu; Complete Time: 20:06 kb 03/09 19:12 Order name: COVID-19 SARS RT PCR; Complete Time: 20:18 kb Administered Medications: 19:19 Drug: Ibuprofen PO 600 mg PO once Route: PO; vc1 20:11 Follow up: Response: No adverse reaction; Marked relief of symptoms; Temperature is vc1 decreased Disposition Summary: 03/09/23 20:23 Discharge Ordered Notes: Location: Home kb Condition: Stable kb Diagnosis - SARS-associated coronavirus as the cause of diseases classified elsewhere kb Followup: kb - With: Emergency Department - When: As needed - Reason: Worsening of condition Followup: kb - With: Private Physician - When: 2 - 3 days - Reason: Recheck today's complaints, Continuance of care, Re-evaluation by your physician Discharge Instructions: - Discharge Summary Sheet kb - COVID-19 kb - Viral Illness, Adult kb Forms: - Work release form kb - Medication Reconciliation Form kb - Thank You Letter kb - Antibiotic Education kb - Prescription Opioid Use kb - Patient Portal Instructions kb - Leadership Thank You Letter kb Addendum: 03/11/2023 09:19 I was immediately available for consultation during this patient's visit. I did not e c2 personally see the patient or guide the patient's care. . Signatures: Dispatcher [employer] Sharon Erickson FNP-C FNP-Ckb Calcote, Vanessa, RN RN vc1 Kade Sanchez MD MD ec2
[2023-03-10 01:29] VITALS: BP 119/70
[2023-03-10 01:35] VITALS: TEMP 97.9; O2SAT 99
== END ==
LOC: ER 18:47
DX: U07.1 COVID-19 (principal)
CPT/HCPCS: 87635; 87804; 99283